=== PATIENT | male | born 1950 | race Caucasian/White ===

== ENCOUNTER 2017-08-03 20:30 | Emergency (ER) | payer MEDICARE ==
[2017-08-03] MEDS ORDERED: DOXYcycline CAP(*) 100 MG PO ONE (22:29)
[2017-08-03] MEDS ORDERED: Levofloxacin TAB* 500 MG PO ONE (22:32)
--- NOTE | 2017-08-03 22:44 | ED ---
Godwin Abarca Angela, scribed for Cornell Bentley MD on 08/03/17 at 2221 . Lower Extremity - HPI Summary HPI Summary: This pt is a 67 y/o male presenting to [facility] referred by [facility] c/o left lower leg laceration and erythema for the past 24 hours. Pt reports that a a piece of plywood hit his left brennan yesterday and sustained a cut. He denies fever. Pt went to [facility] urgent care today and had an XR that resulted negative. Pt has a history of bilateral LE cellulitis. He notes he had cellulitis on the same spot that he has laceration today and he took Doxycycline with relief. PMHx: diabetes. Pt notes his blood sugar has been controlled. He takes metformin and insulin. He notes his tetanus shot is UTD. - History of Current Complaint Chief Complaint: EDExtremityLower Stated Complaint: POSSIBLE INFECTION LT LEG Time Seen by Provider: 08/03/17 22:08 Hx Obtained From: Patient Mechanism Of Injury: Blunt Trauma Onset of Pain: Immediate, Hours - 24 Onset/Duration: Hours - 24 Severity Currently: Mild Pain Intensity: 2 Pain Scale Used: 0-10 Numeric Location: Is Discrete @ - left leg Associated Signs And Symptoms: Positive: Swelling, Redness Aggravating Factor(s): Nothing Alleviating Factor(s): Nothing Able to Bear Weight: Yes - Allergies/Home Medications Allergies/Adverse Reactions: Allergies Allergy/AdvReac Type Severity Reaction Status Date / Time MS Pollen Extract Allergy Mild Sneezing Verified 08/03/17 22:21 [Pollen Extract] MS Theophylline AdvReac Unknown violent Verified 08/03/17 22:21 [Theophylline] nausea Home Medications: Home Medications Flomax CAP* 08/03/17 [History] PMH/Surg Hx/FS Hx/Imm Hx Endocrine/Hematology History: Reports: Hx Diabetes - TYPE 2 Cardiovascular History: Reports: Hx Hypertension - ON MEDS, Other Cardiovascular Problems/Disorders - irregular heart rate Denies: Hx Congestive Heart Failure, Hx Pacemaker/ICD Respiratory History: Reports: Hx Sleep Apnea, Other Respiratory Problems/ Disorders - sleep apnea GI History: Reports: Hx Irritable Bowel, Other GI Disorders - IBS History: Reports: Other Problems/Disorders - ENLARGE PROSTATE Musculoskeletal History: Reports: Hx Arthritis - BILATERAL FINGERS, HIPS, BACK, Hx Back Problems Sensory History: Reports: Hx Contacts or Glasses - GLASSES Denies: Hx Hearing Aid Opthamlomology History: Reports: Hx Contacts or Glasses - GLASSES Neurological History: Reports: Hx Headaches Psychiatric History: Reports: Hx Depression - CHRONIC Denies: Hx Panic Disorder - Cancer History Cancer Type, Location and Year: MELANOMA ON NOSE Hx Chemotherapy: No Hx Radiation Therapy: No - Surgical History Surgery Procedure, Year, and Place: 1998 LAPAROSCOPIC CHOLECYSTECTOMY, [facility] [place]. 1998 LAPAROSCOPIC DRAINS FOR BILE PERTIONITIS, [facility] [place]. 2003 URETHROTOMY, [facility] [place]. 2013 CYSTOSCOPY WITH REMOVAL OF BLADDER STONES, OFFICE. 1979 HAND SURGERY Hx Anesthesia Reactions: No - Immunization History Date of Tetanus Vaccine: less than 4 yrs Infectious Disease History: No Infectious Disease History: Denies: Traveled Outside the [place] in Last 30 Days - Family History Known Family History: Positive: Hypertension, Diabetes - brother/mother, Other - CHF-mother, colon cancer-father Negative: Cardiac Disease - Social History Alcohol Use: None Substance Use Type: Reports: None Hx Tobacco Use: Yes Smoking Status (MU): Former Smoker - quit in 1969 Type: Cigarettes Review of Systems Negative: Fever, Chills Eyes: Negative ENT: Negative Cardiovascular: Negative Respiratory: Negative Gastrointestinal: Negative Musculoskeletal: Other - left leg pain Skin: Other - left leg laceration All Other Systems Reviewed And Are Negative: Yes Physical Exam - Summary Physical Exam Summary: VITAL SIGNS: Reviewed. GENERAL: Patient is a well-developed and nourished male who is lying comfortable in the stretcher. Patient is not in any acute respiratory distress. HEAD AND FACE: No signs of trauma. No ecchymosis, hematomas or skull depressions. No sinus tenderness. EYES: PERRLA, EOMI x 2, No injected conjunctiva, no nystagmus. EARS: Hearing grossly intact. Ear canals and tympanic membranes are within normal limits. MOUTH: Oropharynx within normal limits. NECK: Supple, trachea is midline, no adenopathy, no JVD, no carotid bruit, no c- spine tenderness, neck with full ROM. CHEST: Symmetric, no tenderness at palpation LUNGS: Clear to auscultation bilaterally. No wheezing or crackles. CVS: Regular rate and rhythm, S1 and S2 present, no murmurs or gallops appreciated. ABDOMEN: Soft, non-tender. No signs of distention. No rebound no guarding, and no masses palpated. Bowel sounds are normal. EXTREMITIES: FROM in all major joints, no cyanosis or clubbing. LLE: 1 inch laceration transverse over the left medial leg anteriorly. No bleeding. Mild surrounding erythema. NEURO: Alert and oriented x 3. No acute neurological deficits. Speech is normal and follows commands. SKIN: Dry and warm. Triage Information Reviewed: Yes Vital Signs On Initial Exam: Initial Vitals Temp Pulse Resp BP Pulse Ox 98 F 103 20 162/78 100 08/03/17 20:35 08/03/17 20:35 08/03/17 20:35 08/03/17 20:35 08/03/17 20:35 Vital Signs Reviewed: Yes Diagnostics - Vital Signs Vital Signs Temp Pulse Resp BP Pulse Ox 08/03/17 20:35 98 F 103 20 162/78 100 - Laboratory Lab Statement: Any lab studies that have been ordered have been reviewed, and results considered in the medical decision making process. Lower Extremity Course/Dx - Course Assessment/Plan: This pt is a 67 y/o male, with PMHx of diabetes, presents with left lower leg laceration and erythema for the past 24 hours. Pt reports that a a piece of plywood hit his left brennan yesterday and sustained a cut. He denies fever. Pt went to [facility] urgent care today and had an XR that resulted negative. Pt has a history of bilateral LE cellulitis. He notes he had cellulitis on the same spot that he has laceration today and took Doxycycline with relief. Pt is compliant with his medications for diabetes. On exam, pt has 1 inch laceration transverse over the left medial leg anteriorly. No bleeding. Mild surrounding erythema. Pt will be discharged to home with a prescription of Doxycycline and Levaquin, and follow up from his PCP. He is instructed to elevate his leg and use warm compresses. Pt is advised to return to the ED for any worsening or new symptoms. He is agreeable with this plan. - Diagnoses Provider Diagnoses: Laceration of left leg, Cellulitis Discharge - Discharge Plan Condition: Stable Disposition: HOME Prescriptions: DOXYcycline CAP(*) [DOXYcycline 100MG CAP(*)] 100 mg PO BID #14 cap Levofloxacin TAB* [Levaquin TAB*] 500 mg PO DAILY #7 tab Patient Education Materials: Laceration (ED), Cellulitis (ED) Referrals: Haroon Pandey NP [Primary Care Provider] - Additional Instructions: Use elevation and warm compresses. Keep your sugar under control. RETURN TO EMERGENCY DEPARTMENT FOR ANY NEW OR WORSENING SYMPTOMS. The documentation as recorded by the Godwin redmond Angela accurately reflects the service I personally performed and the decisions made by me, Cornell Bentley MD.
[2017-08-03 22:53] VITALS: BP 129/82
== END 2017-08-03 22:45 | disposition home or self-care (01) ==
LOC: ED 20:30
DX: S81.812A Laceration without foreign body, left lower leg, initial encounter (principal); L03.116 Cellulitis of left lower limb; E11.9 Type 2 diabetes mellitus without complications; Z79.84 Long term (current) use of oral hypoglycemic drugs; Z79.4 Long term (current) use of insulin; F32.9 Major depressive disorder, single episode, unspecified; I10 Essential (primary) hypertension; C43.9 Malignant melanoma of skin, unspecified; Z87.891 Personal history of nicotine dependence; W22.8XXA Striking against or struck by other objects, initial encounter; Y92.9 Unspecified place or not applicable
CPT/HCPCS: 99282; A9270-GY

== ENCOUNTER 2018-05-13 10:26 | Emergency (ER) | payer MEDICARE ==
--- OUTSIDE RECORDS SUMMARY | 2018-05-13 10:58 | XMS REPORT | Continuity of Care Document ---
:1950 External Reference #:[id number] Author Name Abad Pereira M.D. Address [address] [place] [address] Care Team Providers Name Role Phone TEX Tolbert Care Team Information Figurine Maker Unavailable Payers Type Date Identification Numbers Payment Provider Subscriber Expires: Policy Number: [id number] Ciaranus VÁSQUEZ Yessenia Morris Xiomara 2009 Group Number: [id number] PayID: [id number] KT Mcfarland [id number] Effective: 2009 Policy Number: [id number] Excellus THALIA Yessenia Gonzalestimothymike Expires: 2011 Group Name: Cody Blue [address] PayID: [id number] KT Mcfar[place] [id number] Effective: 2011 Policy Number: [id number] Frandy THALIA Yessenia Gonzalestimothymike Expires: 2014 Group Name: BC/BS of [place] [address] PayID: [id number] KT Mcfarland [id number] Effective: 2015 Policy Number: Medicare - Bswny Amna Gill Xiomara [id number] [facility] PayID: [id number] [address] [place] [address] Policy Number: [id number] [facility] Amna Jairo Xiomara PayID: [id number] [address] [place] [address] Advance Directives Description No Information Available Problems Date Description Provider Status Onset: 08/31/2010 Type 2 diabetes mellitus Abad Pereira M.D. Active Onset: 08/31/2010 Essential hypertension TEX Tolbert Active Onset: 08/31/2010 Sleep apnea Mirna Ridley M.D., R.D. Active Family History Date Family Member(s) Problem(s) Comments Onset: (age 82 Years) Father Cancer, Colon AFTER COLON CANCER TREATMENT WITH RADIATION CHEMO AND SURGERY. HISTORY OF CROHN'S COLITIS. Onset: (2006) (age 79 Mother CHF DEVELOPED CHF AGE 79 POSS DUE Years) TO RHEUMATIC VALVE DISEASE. Social History Type Date Description Comments Sex Unknown Marital Status Lives With patient lives alone Tobacco Use Start: Unknown End: Former Cigarette Smoker stopped in the Unknown Smoking Status Reviewed: 02/23/17 Former Cigarette Smoker stopped in the ETOH Use Denies alcohol use Recreational Drug Use Denies Drug Use Enjoy Exercising Enjoys exercising no routine but he is very active Allergies, Adverse Reactions, Alerts Description No Known Drug Allergies Medications Medication Date Status Form Strength Qnty SIG Indications Ordering Provider Amoxicillin 04/14 Active Capsules 500mg 30cap 1 by mouth L03.116 s three times Pereira, a day x 10 M.D. days Ammonium Lactate 04/14 Active Lotion 12% 226gm apply to L03 heels bid Pereira, for dry M.D. cracked skin Amoxicillin/Clav 01/29 Active Tablets 875-125mg 20tab 1 by mouth Shawnti R. ulanate s twice a day Storm, Potassium for 10 days CIRCULATION MANAGER-C for infection BD Insulin 11/22 Active Misc 27G X 60uni Insulin Shawnti R. Syringe /20178" 1 ML ts injection Storm, Microfine/U-100/ bid CIRCULATION MANAGER-C 1ML/27G X 5/8" Metoprolol 08/28 Active Tablets 25mg 30tab 1 by mouth R00.2 Shawnti R. Succinate ER /2017 ER 24HR s every day Storm, CIRCULATION MANAGER-C Bipap Supplies 08/28 Active mask, G47.30 Shawnti R. /2018 tubing, Storm, strap and CIRCULATION MANAGER-C head gear for Bi Pap..Dx Sleep Apnea Bupropion HCL ER 11/25 Active Tablets 300mg 30tab Take One F32.8 (XL) ER 24HR s Tablet By Pereira, Mouth Every M.D. Morning Vitamin D 10/08 Active Capsules 22775Mnzo 14cap take 1 Shawnti R. (Ergocalciferol) s capsule by Storm, mouth once CIRCULATION MANAGER-C weekly Magnesium Oxide 12/13 Active Tablets 400(241.3 60tab Take One Shawnti R. /2015 mg) mg s Tablet By Storm, Mouth Twice CIRCULATION MANAGER-C A Day Insulin 01/07 Active Misc 30G X 75uni use to E11.65 Shawnti R. Syringe/U-100/11/08" 1 ts administer Storm, L/30G X 11/08" ML insulin bid CIRCULATION MANAGER-C Levemir 01/07 Active Solution 100Unit/M 60uni inject up to E11.65 Shawnti R. /2010 L ts 100 units Dannie, two times a CIRCULATION MANAGER-C day into the fatty tissue to keep morning blood sugars under 150 Libra Contour 08/31 Active Test 1vial use daily Joelwkrissyi R. /2010 Strips and as Dannie, needed to CIRCULATION MANAGER-C check blood sugars Lancets 08/31 Active Ultra 50uni use daily Shawnti R. /2010 Fine ts and as Storm, needed to CIRCULATION MANAGER-C test blood sugars Glucophage 07/05 Active Tablets 850mg 90tab Take One Shawnti R. 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 s capsule by Storm, - mouth every CIRCULATION MANAGER-C 01/29 8 hours 10 Silver 01/09 Hx Cream 1% 400gm apply L03.115 Shawnti R. Sulfadiazine /2017 liberally to Dannie, - open wound CIRCULATION MANAGER-C 01/29 on twice daily Doxycycline 01/06 Hx Capsules 100mg 20cap 1 cap by S80.921A Renzo Hyclate s mouth twice [place] - daily for 10 III, CIRCULATION MANAGER-C 01/12 days infection Doxycycline 08/14 Hx Capsules 100mg 20cap 1 by mouth Shawnti R. Monohydrate s twice a day , - CIRCULATION MANAGER-C 10/18 Metoprolol 08/14 Hx Tablets 25mg 60tab take one R00.2 Shawnti R. Tartrate s half tablet [facility], - by mouth CIRCULATION MANAGER-C 08/28 twice a day for heart and blood pressure Doxycycline 12/21 Hx Capsules 100mg 20cap 1 by mouth S91.332A Ubaldo Hyclate s twice a day Evaristo, - 08/14 Tramadol HCL 08/15 Hx Tablets 50mg 60tab take one M75.51 Shawnti R. s tablet by [facility], - mouth four CIRCULATION MANAGER-C 08/14 times a day as needed for pain; maximum daily dose=4 Bupropion HCL ER 04/25 Hx Tablets 150mg 90tab Take One F32.8 Shawnti R. (XL) ER 24HR s Tablet By [facility], - Mouth Every CIRCULATION MANAGER-C 11/25 Doxycycline 01/24 Hx Capsules 100mg 20cap 1 by mouth L03.116 Shawnti R. Hyclate s twice a day [facility], - for 10 days CIRCULATION MANAGER-C 12/21 Bupropion HCL ER 01/24 Hx Tablets 300mg 30tab 1 by mouth F32.8 Shawnti R. (XL) ER 24HR s every , - morning CIRCULATION MANAGER-C 04/25 Zostavax 12/20 Hx Solution 22519Die/ 1unit inject Shawnti R. Rec 0.65ML s 0.65ml into [facility], - subcutaneous CIRCULATION MANAGER-C 03/02 tissue once Bupropion HCL ER 12/20 Hx Tablets 150mg 30tab take 1 F32.8 Shawnti R. (XL) ER 24HR s tablet by Storm, - mouth every CIRCULATION MANAGER-C 01/24 Doxycycline 12/13 Hx Capsules 100mg 20cap 1 po bid for A69.20 Shawnti R. Hyclate /2015 s 10 days Storm, - CIRCULATION MANAGER-C 12/23 Ergocalciferol 12/13 Hx Capsules 81225Ymjf 14cap 1 by mouth E55.9 Shawnti R. /2015 s weekly Storm, - CIRCULATION MANAGER-C 01/12 Doxycycline 04/28 Hx Tablets 100mg 14tab 1 by mouth R23.9 Shawnti R. Hyclate /2014 DR julien twice a day Storm, - for 7 days CIRCULATION MANAGER-C 12/13 Urea 04/28 Hx Cream 40% 198.4 apply twice R23.9 Shawnti R. 00gm daily to Storm, - skin on foot CIRCULATION MANAGER-C 03/02 Doxycycline 09/03 Hx Tablets 100mg 20tab 1 by mouth 682.[address] julien twice a day Storm, - for 10 days CIRCULATION MANAGER-C 12/25 Doxycycline 05/26 Hx Tablets 100mg 20tab 1 by mouth 682.9 Joelwnti R. Hyclate /2013 DR julien twice a day Storm, - for 10 days CIRCULATION MANAGER-C 06/05 Cyclobenzaprine 12/23 Hx Tablets 5mg 30tab 1-2 by mouth 724.2 Anuradha HCL s three times Stoney, - a day for CIRCULATION MANAGER-C 03/02 muscle spasm, may cause drowsiness Clindamycin HCL 10/26 Hx Capsules 300mg 40cap one by mouth Anuradha /2013 s four times a Stoney, - day x 10 CIRCULATION MANAGER-C 09/03 days for cellulitis Lymphedema Pump 09/26 Hx wear on legs 782.3 Shawnti R. /2013 qhs for Storm, - edema and CIRCULATION MANAGER-C 03/02 recurrent cellulitis Tamiflu 09/20 Hx Capsules 75mg 10cap take one 488.82 Leonie s capsule po Carlos Bueno, - bid for 5 M.D. 04/02 days. take with some food Ciprofloxacin 09/20 Hx Tablets 500mg 14tab 1 po bid 682.9 Leonie HCL s Carlos Bueno, - M.D. 09/26 Bactrim DS 06/09 Hx Tablets 800-160mg 20tab 1 tablet bid s x 10 days Stoney, - CIRCULATION MANAGER-C 06/25 Clindamycin HCL 12/20 Hx Capsules 300mg 30cap 1 po qid for 682.9 Anuradha s 10 days for Stoney, - Infection CIRCULATION MANAGER-C 06/09 BD Uf II Short 12/11 Hx 60uni use to Shawnti R. 1cc 31G ts administer Storm, - insulin two CIRCULATION MANAGER-C 11/22 times a day /2017 Bactrim DS 11/30 Hx Tablets 800-160mg 20tab 1 po bid for 682.9 Shawnti R. s infection Storm, - CIRCULATION MANAGER-C 12/10 Sertraline HCL 07/13 Hx Tablets 100mg 60tab Take Two s Tablets By Freddy Mar, - Mouth Every M.D. /2017 Cephalexin 06/25 Hx Tablets 500mg 30tab 1 po tid for 682.9 Shawnti R. /2011 s 10 days for Storm, - infection CIRCULATION MANAGER-C 07/05 BD Uf II Short 03/08 Hx 60uni Use To Shawnti R. 1cc 31G /2011 ts Administer Storm, - Insulin Two CIRCULATION MANAGER-C 03/02 Times A Day /2015 Silvadene 05/09 Hx Cream 1% 1tub use as 707.15 Leonie directed to Carlos Bueno, - be applied M.D. 08/14 to the wound on the left heel Sulfamethoxazole 04/20 Hx Tablets 800-160mg 20tab take 1 883.1 Anuradha /Trimethoprim s tablet bid Stoney, - for 10 days CIRCULATION MANAGER-C 06/21 Clindamycin HCL 10/01 Hx Capsules 300mg 30cap 1 po q8hr 682.6 Shawnti R. /2010 s for infected Storm, - cat bite CIRCULATION MANAGER-C 10/11 Doxycycline 10/[address] 100mg 20cap 1 po bid for 682.6 Shawnti R. Hyclate /2010 Part s 10 days for Storm, - infected cat CIRCULATION MANAGER-C 10/11 bite /2010 [place] 09/09 Hx Levmir 1Mont use daily Shawnti R. /2010 h with Levmir Dannie, - flex pen CIRCULATION MANAGER-C 03/02 Levemir Flexpen 08/31 Hx Solution 100Unit/M 1mont inject 50 to 250.02 Shawnti R. /2010 L h 100 units Dannie, - into fatty CIRCULATION MANAGER-C 01/07 tissue daily for diabetes Cephalexin 12/10 Hx Capsules 500mg 30cap 1 tid x 10 682.6 s Diane Pereira M.D. 01/21 Cortisporin 02/21 Hx Solution 1% Otic 1Bott 3 drops left 380.22 Shawnti R. /2008 le ear 4 times Dannie, - daily for 5 CIRCULATION MANAGER-C Keflex 11/18 Hx Capsules 500mg 40cap 1 po qid for Shawnti R. /2008 s 10 days Storm, - CIRCULATION MANAGER-C 03/03 Ceftin 12/22 Hx Tablets 500mg 20tab 1 bid With 682.6 Michelle A. s Food For 10 , - Days [facility].N.P.C[facility] 07/07 Keflex 10/11 Hx Capsules 500mg 30cap 1 PO tid For 682.6 Shawnti R. /2007 s 10 Days For Storm, - Infection CIRCULATION MANAGER-C 12/23 Januvia 08/20 Hx Tablets 100mg 90tab 1 po qd Shawnti R. /2007 s Storm, - CIRCULATION MANAGER-C 05/13 Keflex 08/08 Hx Capsules 500mg 30cap 1 tid X 10 s Diane Orozco M.D. 08/20 Januvia 06/29 Hx Tablets 50mg 30tab 1 qd Diane Kemp M.D. 08/20 Lisinopril 06/29 Hx Tablets 10mg 30tab Take One Shawnti R. s Tablet By Storm, - Mouth Every CIRCULATION MANAGER-C /2017 Levaquin 03/04 Hx Tablets 500mg 10tab one qd x 10 682.6 Michelle A. /2005 s days Diane Carrion.N.P.C. 05/22 Levaquin 01/11 Hx Tablets 500mg 7tabs one tablet 681.11 Paresh Ashraf /2005 daily for 7 Edna Cortez - days 01/18 682.6 Vicodin 01/02/2006 - Hx Tablets 5mg;500 30tabs 1-2 Tab Q 723.3 Paresh Ashraf 01/07/2006 mg 4-6 HRS Edna Cortez prn, MDD 8 Tabs Cyclobenzaprine 01/02/2006 - Hx Tablets 10mg 15tabs one tablet 723.3 Paresh Ashraf 01/07/2006 up to tid Edna Cortez prn muscle spasm Cephalexin 07/30/2004 - Hx Capsules 500mg 14caps One Tab Eloy 08/19/2004 bid X 7 Lidia ChavesDChitra Amoxicillin 02/25/2004 - Hx Capsules 500mg 28caps 2 po bid x Whit 05/28/2004 7 days Freddy Mar M.D. Cortisporin Otic 02/25/2004 - Hx Solution 5mg;44824 1Bottle 4 drops Whit 05/28/2004 U;10mg/ML affected P. Blegen, ear qid M.DChitra for 5-7 days Tylenol W/ Codeine 02/25/2004 - Hx Tablets 300mg;30 15tabs 1-2 po qhs Whit #3 08/20/2007 mg prn pain PChitra Mar M.D. Keflex 01/12/2004 - Hx Tablets 500mg 20tabs one po bid Eloy 01/11/2006 for 10 lidia Chaves.D. Bentyl 08/27/2003 - Hx Tablets 20mg 100tabs 1 up to Anuradha 04/30/2015 qid prn BERT Lua-Hillary Anusol HC 12/18/2002 - Hx 30units 1 pr bid Eloy Suppository 03/01/2016 prn Edna Chaves Nitroglycerin SL 04/16/2002 - Hx 0.4mg 25units one po prn Unknown 08/27/2003 chest pain, may repeat in 5 minutes prn Avandia 01/22/2002 - Hx Tablets 8mg 90tabs one qd Eloy 06/29/2007 Edna Chaves Keflex 12/31/2001 - Hx Tablets 500mg 20tabs One PO Michelle A. 04/16/2002 bid X 10 Sheyla, Days F.N.P.C. Cipro HC Otic 12/31/2001 - Hx Solution 10ml 3 gtts In Michelle A. 04/16/2002 Affected Sheyla, Ear bid X F.N.P.C. 7 Days Cholestyramine 07/31/2001 - Hx 1 packet Eloy 08/27/2003 qd Edna Chaves Zoloft 07/31/2001 - Hx Tablets 100mg 180tabs two po qhs Shawnti R. 07/13/2012 Storm, CIRCULATION MANAGER-C Terazosin 07/31/2001 - Hx Capsules 5mg 90caps one qd Eloy 08/27/2003 Edna Chaves Glucophage 07/31/2001 - Hx Tablets 500mg 270tabs 0NE tid Eloy 07/05/2004 Edna Chaves Glipizide 07/31/2001 - Hx 5mg 360units 2 po bid Shawnti RChitra 02/13/2012 for Storm, diabetes CIRCULATION MANAGER-C Medications Administered in Office Medication Date Status Form Strength Qnty SIG Indications Ordering Provider George Administered Injection Whit Hayes (Ceftriaxone) 013 Blegen, Per 250MG M.D. Immunizations CPT Code Status Date Vaccine Lot # [id number] Given 01/29/2018 Pneumovax 23 (PPSV23) 65+ years or high risk 2 to [id number] 64 year old 25033 Given 02/23/2017 Influenza Vaccine High Dose PF [id number] 69264 Given 12/21/2016 Tdap (Adacel) [id number] 35828 Given 02/22/2016 Influenza Virus Vaccine, Quadrivalent, 3 Yr > [id number] Quad, Preserv Free 63111 Given 01/29/2016 Zoster Vaccine 67872 Given 01/25/2016 Zoster Vaccine 70549 Given 12/21/2015 Prevnar-13 Pneumococcal Conjugate Vaccine [id number] 23780 Given 05/26/2014 Influenza Virus Vaccine, Quadrivalent, 3 Yr > [id number] Quad, Preserv Free 11815 Given 2013 Influenza Vaccine-Preservative Free 3 Yrs And [id number] Above 19913 Given 05/09/2011 Influenza Vaccine-Preservative Free 3 Yrs And [id number] Above 23908 Given 06/01/2010 Tdap (Adacel) [id number] 21244 Given 06/01/2010 Influenza Vaccine-Preservative Free 3 Yrs And [id number] Above 55033 Given 01/12/2004 DT (Adult) 57313 Given 01/30/2003 DT (Adult) 49255 Given 01/30/2003 DT (Adult) 94562 Given 04/08/1996 DT (Adult) 17175 Given 12/16/1993 Hepatitus B Vaccine (Per 0.5 ML) 71816 Given 07/20/1993 Hepatitus B Vaccine (Per 0.5 ML) 08662 Given 06/22/1993 Hepatitus B Vaccine (Per 0.5 ML) Vital Signs Date Vital Result Comment 04/14/2018 11:05am Weight 297.00 lb Weight 134.719 kg BP Systolic 122 mmHg BP Diastolic 78 mmHg Heart Rate 78 /min Body Temperature 98.1 F Respiratory Rate 16 /min O2 % BldC Oximetry 97 % 01/29/2018 8:35am Weight 293.00 lb Weight 132.905 kg BP Systolic 120 mmHg BP Diastolic 78 mmHg Heart Rate 80 /min Body Temperature 98.1 F Respiratory Rate 18 /min Height 71.5 inches 5'11.50" BMI (Body Mass Index) 40.3 kg/m2 O2 % BldC Oximetry 98 % 01/19/2018 4:31pm Weight 292.00 lb Weight 132.451 kg BP Systolic 120 mmHg BP Diastolic 80 mmHg Heart Rate 76 /min Body Temperature 99.3 F Respiratory Rate 18 /min O2 % BldC Oximetry 97 % 01/15/2018 3:47pm Weight 294.00 lb Weight 133.358 kg BP Systolic 138 mmHg BP Diastolic 82 mmHg Heart Rate 70 /min Body Temperature 97.5 F Respiratory Rate 16 /min 01/12/2018 9:32am Weight 291.00 lb Weight 131.998 kg BP Systolic 100 mmHg BP Diastolic 68 mmHg Heart Rate 72 /min Body Temperature 98.0 F Respiratory Rate 16 /min O2 % BldC Oximetry 98 % 01/09/2018 9:39am Weight 290.00 lb Weight 131.544 kg BP Systolic 120 mmHg BP Diastolic 73 mmHg Heart Rate 68 /min Body Temperature 99.7 F Respiratory Rate 20 /min Height 71 inches 5'11" BMI (Body Mass Index) 40.4 kg/m2 O2 % BldC Oximetry 97 % 01/06/2018 9:49am Weight 290.00 lb Weight 131.544 kg BP Systolic 134 mmHg BP Diastolic 70 mmHg Heart Rate 80 /min Body Temperature 97.6 F Respiratory Rate 16 /min 10/18/2017 3:43pm Weight 291.00 lb Weight 131.998 kg BP Systolic 130 mmHg BP Diastolic 78 mmHg Heart Rate 64 /min Body Temperature 99.7 F O2 % BldC Oximetry 98 % 08/28/2017 3:34pm Weight 288.00 lb Weight 130.637 kg BP Systolic 130 mmHg BP Diastolic 80 mmHg Heart Rate 80 /min Body Temperature 97.0 F Respiratory Rate 16 /min 08/14/2017 3:45pm Weight 285.00 lb Weight 129.276 kg BP Systolic 138 mmHg BP Diastolic 84 mmHg Heart Rate 93 /min Body Temperature 98.8 F Respiratory Rate 18 /min O2 % BldC Oximetry 98 % 05/23/2017 4:03pm Weight 286.00 lb Weight 129.730 kg BP Systolic 120 mmHg BP Diastolic 70 mmHg Heart Rate 68 /min Body Temperature 98.7 F Respiratory Rate 16 /min 02/23/2017 10:21am Weight 292.00 lb Weight 132.451 kg BP Systolic 120 mmHg BP Diastolic 80 mmHg Heart Rate 72 /min Body Temperature 97.0 F Respiratory Rate 20 /min 01/10/2017 3:08pm Weight 291.00 lb Weight 131.998 kg BP Systolic 120 mmHg BP Diastolic 68 mmHg Heart Rate 92 /min Body Temperature 98.4 F Respiratory Rate 16 /min 12/21/2016 4:14pm Weight 294.00 lb Weight 133.358 kg BP Systolic 118 mmHg BP Diastolic 78 mmHg Heart Rate 94 /min Body Temperature 99.3 F Respiratory Rate 24 /min Height 71.5 inches 5'11.50" BMI (Body Mass Index) 40.4 kg/m2 O2 % BldC Oximetry 98 % 08/15/2016 11:32am Weight 290.00 lb Weight 131.544 kg BP Systolic 130 mmHg BP Diastolic 68 mmHg Body Temperature 80.0 F 01/25/2016 9:38am Weight 296.00 lb Weight 134.266 kg BP Systolic 120 mmHg BP Diastolic 70 mmHg Heart Rate 92 /min Body Temperature 98.2 F Respiratory Rate 20 /min 12/21/2015 8:47am Weight 291.00 lb Weight 131.998 kg BP Systolic 130 mmHg BP Diastolic 74 mmHg Heart Rate 80 /min Height 71.5 inches 5'11.50" BMI (Body Mass Index) 40.0 kg/m2 12/14/2015 10:55am Weight 296.00 lb Weight 134.266 kg BP Systolic 128 mmHg BP Diastolic 76 mmHg Heart Rate 80 /min Body Temperature 97.4 F 11/30/2015 9:45am Weight 298.00 lb Weight 135.173 kg BP Systolic 122 mmHg BP Diastolic 62 mmHg Heart Rate 76 /min 04/30/2015 9:47am Weight 298.00 lb Weight 135.173 kg BP Systolic 122 mmHg BP Diastolic 74 mmHg Heart Rate 76 /min Body Temperature 98.6 F 04/28/2015 4:34pm Weight 296.00 lb Weight 134.266 kg BP Systolic 128 mmHg BP Diastolic 80 mmHg Heart Rate 68 /min Body Temperature 99.5 F 09/03/2014 11:15am Weight 300.00 lb Weight 136.080 kg BP Systolic 140 mmHg BP Diastolic 70 mmHg Heart Rate 76 /min Body Temperature 98.5 F 06/16/2014 9:02am Weight 299.00 lb Weight 135.626 kg BP Systolic 140 mmHg BP Diastolic 60 mmHg Heart Rate 68 /min Body Temperature 97.7 F 05/26/2014 4:44pm Weight 292.00 lb Weight 132.451 kg BP Systolic 130 mmHg BP Diastolic 76 mmHg Heart Rate 100 /min Body Temperature 99.0 F 12/23/2013 12:03pm Weight 292.00 lb Weight 132.451 kg BP Systolic 114 mmHg BP Diastolic 68 mmHg Heart Rate 100 /min Body Temperature 98.2 F 10/28/2013 10:51am Weight 290.00 lb Weight 131.544 kg BP Systolic 130 mmHg BP Diastolic 80 mmHg Heart Rate 72 /min Body Temperature 98.4 F 10/26/2013 10:22am Weight 290.00 lb Weight 131.544 kg BP Systolic 112 mmHg BP Diastolic 74 mmHg Heart Rate 72 /min Body Temperature 99.3 F 09/26/2013 4:30pm Weight 290.00 lb Weight 131.544 kg BP Systolic 118 mmHg BP Diastolic 80 mmHg Heart Rate 68 /min 09/20/2013 4:38pm Weight 289.00 lb Weight 131.090 kg BP Systolic 126 mmHg BP Diastolic 68 mmHg Heart Rate 88 /min Body Temperature 101.2 F O2 % BldC Oximetry 98 % 2013 8:59am Weight 288.00 lb Weight 130.637 kg BP Systolic 124 mmHg BP Diastolic 76 mmHg Heart Rate 88 /min Body Temperature 95.7 F Height 72 inches 6'0" BMI (Body Mass Index) 39.1 kg/m2 06/14/2013 5:06pm Weight 287.00 lb Weight 130.183 kg BP Systolic 122 mmHg BP Diastolic 70 mmHg Heart Rate 76 /min Body Temperature 98.4 F 06/13/2013 11:00am Weight 287.00 lb Weight 130.183 kg BP Systolic 110 mmHg BP Diastolic 70 mmHg Heart Rate 100 /min Body Temperature 98.5 F 06/10/2013 11:03am Weight 288.00 lb Weight 130.637 kg BP Systolic 106 mmHg BP Diastolic 70 mmHg Heart Rate 88 /min Body Temperature 97.9 F 05/08/2013 4:46pm Weight 280.00 lb Weight 127.008 kg BP Systolic 118 mmHg BP Diastolic 66 mmHg Heart Rate 84 /min Body Temperature 98.3 F 03/06/2013 10:03am Weight 285.00 lb Weight 129.276 kg BP Systolic 126 mmHg BP Diastolic 76 mmHg Heart Rate 85 /min Body Temperature 98.9 F O2 % BldC Oximetry 98 % 12/20/2012 11:50am Weight 292.00 lb Weight 132.451 kg BP Systolic 126 mmHg BP Diastolic 70 mmHg Heart Rate 84 /min Body Temperature 97.9 F O2 % BldC Oximetry 98 % 12/11/2012 2:22pm Weight 292.00 lb Weight 132.451 kg BP Systolic 118 mmHg BP Diastolic 82 mmHg Heart Rate 84 /min Body Temperature 98.1 F O2 % BldC Oximetry 98 % 11/30/2012 11:07am Weight 297.00 lb Weight 134.719 kg BP Systolic 136 mmHg BP Diastolic 82 mmHg Heart Rate 96 /min 2012 11:06am Weight 300.00 lb Weight 136.080 kg BP Systolic 112 mmHg BP Diastolic 72 mmHg Heart Rate 74 /min 02/13/2012 8:53am Weight 299.00 lb Weight 135.626 kg BP Systolic 120 mmHg BP Diastolic 82 mmHg Heart Rate 76 /min Height 72.5 inches 6'0.50" BMI (Body Mass Index) 40.0 kg/m2 08/15/2011 10:33am Weight 300.00 lb Weight 136.080 kg BP Systolic 120 mmHg BP Diastolic 80 mmHg Heart Rate 88 /min 05/13/2011 10:58am Weight 303.00 lb Weight 137.441 kg BP Systolic 118 mmHg BP Diastolic 78 mmHg Heart Rate 76 /min 05/09/2011 10:26am Weight 303.00 lb Weight 137.441 kg BP Systolic 120 mmHg BP Diastolic 70 mmHg Heart Rate 78 /min Body Temperature 98.3 F 04/20/2011 11:34am Weight 303.00 lb Weight 137.441 kg BP Systolic 118 mmHg BP Diastolic 78 mmHg Heart Rate 76 /min Body Temperature 98.7 F 01/07/2011 9:08am Weight 299.00 lb Weight 135.626 kg BP Systolic 110 mmHg BP Diastolic 74 mmHg Heart Rate 72 /min 10/23/2010 10:31am Weight 293.00 lb Weight 132.905 kg BP Systolic 124 mmHg BP Diastolic 68 mmHg Heart Rate 72 /min Body Temperature 98.5 F 10/19/2010 8:48am Weight 290.00 lb Weight 131.544 kg BP Systolic 132 mmHg BP Diastolic 72 mmHg Heart Rate 78 /min 10/01/2010 3:16pm Weight 296.00 lb Weight 134.266 kg BP Systolic 120 mmHg BP Diastolic 70 mmHg Heart Rate 88 /min Body Temperature 99.4 F 09/14/2010 9:02am Weight 293.00 lb Weight 132.905 kg BP Systolic 142 mmHg BP Diastolic 74 mmHg Heart Rate 76 /min 08/31/2010 8:43am Weight 298.00 lb Weight 135.173 kg BP Systolic 98 mmHg BP Diastolic 68 mmHg Heart Rate 92 /min 06/01/2010 8:08am Weight 300.00 lb Weight 136.080 kg BP Systolic 122 mmHg BP Diastolic 80 mmHg Heart Rate 72 /min 12/10/2009 4:21pm Weight 302.00 lb Weight 136.987 kg BP Systolic 130 mmHg BP Diastolic 80 mmHg Heart Rate 88 /min Body Temperature 98.9 F 07/20/2009 3:07pm Weight 303.00 lb Weight 137.441 kg BP Systolic 134 mmHg BP Diastolic 84 mmHg Heart Rate 89 /min Body Temperature 98.7 F O2 % BldC Oximetry 98 % 02/21/2009 10:27am Weight 297.00 lb Weight 134.719 kg BP Systolic 128 mmHg BP Diastolic 74 mmHg Heart Rate 80 /min Body Temperature 99.8 F 10/24/2008 9:39am Weight 305.00 lb Weight 138.348 kg BP Systolic 132 mmHg BP Diastolic 78 mmHg Heart Rate 72 /min Height 72 inches 6'0" BMI (Body Mass Index) 41.4 kg/m2 07/07/2008 2:57pm Weight 301.00 lb Weight 136.534 kg BP Systolic 140 mmHg BP Diastolic 80 mmHg Heart Rate 92 /min 12/27/2007 3:50pm Weight 303.00 lb Weight 137.441 kg BP Systolic 128 mmHg BP Diastolic 68 mmHg Heart Rate 72 /min Height 72.75 inches 6'0.75" 75 BMI (Body Mass Index) 40.2 kg/m2 12/24/2007 3:51pm Weight 305.00 lb Weight 138.348 kg Body Temperature 98.3 F Height 72.75 inches 6'0.75" 75 BMI (Body Mass Index) 40.5 kg/m2 10/12/2007 1:32pm Weight 303.00 lb Weight 137.441 kg BP Systolic 118 mmHg BP Diastolic 68 mmHg Heart Rate 72 /min Body Temperature 98.0 F Oral Height 72.75 inches 6'0.75" 75 BMI (Body Mass Index) 40.2 kg/m2 08/20/2007 12:56pm Weight 304.00 lb Weight 137.894 kg BP Systolic 130 mmHg BP Diastolic 74 mmHg Heart Rate 72 /min Height 72.75 inches 6'0.75" 75 BMI (Body Mass Index) 40.4 kg/m2 08/08/2007 11:18am Weight 308.00 lb Weight 139.709 kg BP Systolic 130 mmHg BP Diastolic 84 mmHg Heart Rate 76 /min Body Temperature 96.9 F Height 72.25 inches 6'0.25" BMI (Body Mass Index) 41.5 kg/m2 06/29/2007 11:42am Weight 310.00 lb Weight 140.616 kg BP Systolic 134 mmHg BP Diastolic 82 mmHg Heart Rate 78 /min Height 72.25 inches 6'0.25" BMI (Body Mass Index) 41.7 kg/m2 03/09/2007 11:19am Weight 321.00 lb Weight 145.606 kg BP Systolic 148 mmHg BP Diastolic 82 mmHg Heart Rate 72 /min Height 72.25 inches 6'0.25" BMI (Body Mass Index) 43.2 kg/m2 09/13/2006 1:52pm Weight 325.00 lb Weight 147.420 kg BP Systolic 160 mmHg BP Diastolic 86 mmHg Heart Rate 74 /min Height 72.25 inches 6'0.25" BMI (Body Mass Index) 43.8 kg/m2 03/04/2006 9:14am Weight 323.00 lb Weight 146.513 kg BP Systolic 140 mmHg BP Diastolic 80 mmHg Heart Rate 80 /min Body Temperature 96.0 F Height 73.5 inches 6'1.50" BMI (Body Mass Index) 42.0 kg/m2 01/11/2006 2:54pm Weight 324.00 lb Weight 146.966 kg BP Systolic 150 mmHg BP Diastolic 90 mmHg Heart Rate 80 /min Body Temperature 97.0 F Height 73.5 inches 6'1.50" BMI (Body Mass Index) 42.2 kg/m2 01/02/2006 4:57pm Weight 327.00 lb Weight 148.327 kg BP Systolic 130 mmHg BP Diastolic 80 mmHg Height 73.5 inches 6'1.50" BMI (Body Mass Index) 42.6 kg/m2 12/12/2005 3:39pm Weight 324.00 lb Weight 146.966 kg BP Systolic 124 mmHg BP Diastolic 82 mmHg Height 73.5 inches 6'1.50" BMI (Body Mass Index) 42.2 kg/m2 06/13/2005 4:20pm Weight 329.00 lb Weight 149.234 kg BP Systolic 150 mmHg BP Diastolic 90 mmHg Heart Rate 78 /min Height 73.5 inches 6'1.50" BMI (Body Mass Index) 42.8 kg/m2 07/30/2004 11:07am Weight 332.00 lb Weight 150.595 kg BP Systolic 130 mmHg BP Diastolic 80 mmHg Body Temperature 97.0 F Height 73.5 inches 6'1.50" BMI (Body Mass Index) 43.2 kg/m2 07/05/2004 4:15pm Weight 329.00 lb Weight 149.234 kg BP Systolic 130 mmHg BP Diastolic 80 mmHg Height 73.5 inches 6'1.50" BMI (Body Mass Index) 42.8 kg/m2 05/31/2004 1:01pm Weight 328.00 lb Weight 148.781 kg BP Systolic 110 mmHg BP Diastolic 70 mmHg Body Temperature 98.2 F 02/25/2004 11:14am Weight 331.00 lb Weight 150.142 kg BP Systolic 134 mmHg BP Diastolic 88 mmHg Body Temperature 97.6 F 01/12/2004 12:32pm Weight 332.00 lb Weight 150.595 kg BP Systolic 143 mmHg BP Diastolic 98 mmHg Heart Rate 88 /min Body Temperature 97.7 F 08/27/2003 12:40pm Weight 329.00 lb Weight 149.234 kg BP Systolic 126 mmHg BP Diastolic 80 mmHg Heart Rate 68 /min Respiratory Rate 18 /min Height 71.50 inches BMI (Body Mass Index) 45.2 kg/m2 05/14/2003 2:33pm Weight 326.00 lb Weight 147.874 kg BP Systolic 122 mmHg BP Diastolic 80 mmHg 04/16/2002 11:51am Weight 330.00 lb Weight 149.700 kg BP Systolic 130 mmHg BP Diastolic 80 mmHg Heart Rate 78 /min Body Temperature 97.0 F Respiratory Rate 18 /min 12/31/2001 9:35am Weight 326.50 lb BP Systolic 116 mmHg BP Diastolic 78 mmHg Body Temperature 96.8 F 10/12/2001 4:43pm Weight 325.50 lb BP Systolic 148 mmHg BP Diastolic 90 mmHg Results Test Date Facility Test Result H/L Range Note Laboratory test 04/02/2018 [facility] PSA Screening 5.478 ng/mL High 0-4.0 1 finding [phone] CBC Auto Diff 01/19/2018 [facility] White Blood 7.0 10^3/uL 3.5-10.8 [phone] Count Red Blood Count 4.73 10^6/uL 4.00-5.40 Hemoglobin 13.9 g/dL Low 14.0-18.0 Hematocrit 41 % Low 42-52 Mean Corpuscular Volume 88 fL 80-94 Mean Corpuscular Hemoglobin 29 pg 27-31 Mean Corpuscular HGB Conc 34 g/dL 31-36 Red Cell Distribution Width 14 % 10.5-15 Platelet Count 102 10^3/uL Low 150-450 Mean Platelet Volume 9.7 um3 7.4-10.4 Abs Neutrophils 4.8 10^3/uL 1.5-7.7 Abs Lymphocytes 1.6 10^3/uL 1.0-4.8 Abs Monocytes 0.5 10^3/uL 0-0.8 Abs Eosinophils 0.1 10^3/uL 0-0.6 Abs Basophils 0 10^3/uL 0-0.2 Abs Nucleated RBC 0 10^3/uL Granulocyte % 68.7 % 38-83 Lymphocyte % 22.2 % Low 25-47 Monocyte % 7.5 % High 0-7 Eosinophil % 1.3 % 0-6 Basophil % 0.3 % 0-2 Nucleated Red Blood Cells % 0.1 Laboratory test 01/19/2018 [facility] C Reactive 3.34 mg/L <8.01 2 finding [phone] Protein Erythrocyte Sed Rate 19 mm/Hr 0-40 3 CBC Auto Diff 01/09/2018 [facility] White Blood 6.5 10^3/uL 3.5-10.8 [phone] Count Red Blood Count 5.15 10^6/uL 4.00-5.40 Hemoglobin 15.0 g/dL 14.0-18.0 Hematocrit 45 % 42-52 Mean Corpuscular Volume 88 fL 80-94 Mean Corpuscular Hemoglobin 29 pg 27-31 Mean Corpuscular HGB Conc 33 g/dL 31-36 Red Cell Distribution Width 14 % 10.5-15 Platelet Count 108 10^3/uL Low 150-450 Mean Platelet Volume 9.8 um3 7.4-10.4 Abs Neutrophils 4.3 10^3/uL 1.5-7.7 Abs Lymphocytes 1.7 10^3/uL 1.0-4.8 Abs Monocytes 0.4 10^3/uL 0-0.8 Abs Eosinophils 0.1 10^3/uL 0-0.6 Abs Basophils 0 10^3/uL 0-0.2 Abs Nucleated RBC 0 10^3/uL Granulocyte % 66.0 % 38-83 Lymphocyte % 25.6 % 25-47 Monocyte % 6.9 % 0-7 Eosinophil % 1.1 % 0-6 Basophil % 0.4 % 0-2 Nucleated Red Blood Cells % 0.1 Wound 01/09/2018 [facility] Wound/Misc SEE RESULT 4 Culture/Sensi [phone] Culture-Gram BELOW Stain Comp Metabolic 01/09/2018 [facility] Sodium 141 mmol/ L 135-1 Panel [phone] Potassium 4.9 mmol/L 3.5-5.0 Chloride 106 mmol/L 101-111 Co2 Carbon Dioxide 26 mmol/L 22-32 Anion Gap 9 mmol/L 2-11 Glucose 85 mg/dL 70-100 Blood Urea Nitrogen 20 mg/dL 6-24 Creatinine 0.95 mg/dL 0.67-1.17 BUN/Creatinine Ratio 21.1 High 8-20 Calcium 9.1 mg/dL 8.6-10.3 Total Protein 7.3 g/dL 6.4-8.9 Albumin 4.3 g/dL 3.2-5.2 Globulin 3.0 g/dL 2-4 Albumin/Globulin Ratio 1.4 1-3 Total Bilirubin 1.40 mg/dL High 0.2-1.0 Alkaline Phosphatase 41 U/L 34-104 Alt 37 U/L 7-52 Ast 24 U/L 13-39 Egfr Non- 79.1 >60 Egfr 95.7 >60 5 Laboratory test 01/09/2018 [facility] TSH (Thyroid 2.81 mcIU/mL 0.34-5.60 6 finding [phone] Stim Horm) Hemoglobin A1c (Glyco HGB) 5.6 % 4.0-5.6 7 PSA Diagnostic 17.130 ng/mL High 0-4.000 8 Lipid Profile 01/09/2018 [facility] Triglycerides 88 mg/dL 9 (Trig/Chol/HDL) [phone] Cholesterol 69 mg/dL 10 HDL Cholesterol 30.6 mg/dL 11 LDL Cholesterol 21 mg/dL 12 Laboratory test 12/19/2017 [facility] Surgical SEE RESULT 13, 14 finding [phone] Pathology BELOW Laboratory test 09/25/2017 [facility] PSA Screening 8.122 High 0-4. 15 finding [phone] ng/mL 0 Laboratory test 07/19/2017 [facility] PSA Screening 8.975 High 0-4. 16 finding [phone] ng/mL 0 Urine 02/23/2017 [facility] Urine 63.17 17 Microalbumin [phone] Creatinine mg/dL Random Ur Microalbumin (mg/L) < 15.0 mg/L Urine Microalbumin/Creatinine TNP ug/mg <31 18 CBC Auto Diff 02/23/2017 [facility] White Blood 5.2 10^3/uL 3.5-10.8 [phone] Count Red Blood Count 4.89 10^6/uL 4.0-5.4 Hemoglobin 14.1 g/dL 14.0-18.0 Hematocrit 43 % 42-52 Mean Corpuscular Volume 87 fL 80-94 Mean Corpuscular Hemoglobin 29 pg 27-31 Mean Corpuscular HGB Conc 33 g/dL 31-36 Red Cell Distribution Width 14 % 10.5-15 Platelet Count 98 10^3/uL Low 150-450 19 Mean Platelet Volume 10 um3 7.4-10.4 Abs Neutrophils 2.9 10^3/uL 1.5-7.7 Abs Lymphocytes 1.7 10^3/uL 1.0-4.8 Abs Monocytes 0.4 10^3/uL 0-0.8 Abs Eosinophils 0.1 10^3/uL 0-0.6 Abs Basophils 0 10^3/uL 0-0.2 Abs Nucleated RBC 0 10^3/uL Granulocyte % 57.0 % 38-83 Lymphocyte % 32.2 % 25-47 Monocyte % 8.5 % 1-9 Eosinophil % 1.8 % 0-6 Basophil % 0.5 % 0-2 Nucleated Red Blood Cells % 0.1 Comp Metabolic Panel 02/23/2017 [facility] Sodium 139 mmol/L 133-145 [phone] Potassium 4.6 mmol/L 3.5-5.0 Chloride 105 mmol/L 101-111 Co2 Carbon Dioxide 30 mmol/L 22-32 Anion Gap 4 mmol/L 2-11 Glucose 92 mg/dL 70-100 Blood Urea Nitrogen 14 mg/dL 6-24 Creatinine 0.71 mg/dL 0.67-1.17 BUN/Creatinine Ratio 19.7 8-20 Calcium 9.2 mg/dL 8.6-10.3 Total Protein 7.1 g/dL 6.4-8.9 Albumin 4.1 g/dL 3.2-5.2 Globulin 3.0 g/dL 2-4 Albumin/Globulin Ratio 1.4 1-3 Total Bilirubin 0.80 mg/dL 0.2-1.0 Alkaline Phosphatase 38 U/L 34-104 Alt 43 U/L 7-52 Ast 29 U/L 13-39 Egfr Non- 111.0 >60 Egfr 142.8 >60 20 Lipid Profile 02/23/2017 [facility] Triglycerides 90 mg/dL 21 (Trig/Chol/HDL) [phone] Cholesterol 64 mg/dL 22 HDL Cholesterol 29.1 mg/dL 23 LDL Cholesterol 17 mg/dL 24 Laboratory test 02/23/2017 [facility] TSH (Thyroid 1.65 mcIU/mL 0.34-5.60 finding [phone] Stim Horm) Hemoglobin A1c (Glyco HGB) 6.0 % High Less than 6.0 25 Magnesium 1.9 mg/dL 1.9-2.7 Ferritin 46.6 ng/mL 24-336 Laboratory test 02/23/2017 [facility] Vitamin D 48.7 ng/mL 30-50 finding [phone] Total 25(Oh) Vitamin B12 199 pg/mL 180-914 26 Iron & Iron Binding 02/23/2017 [facility] Iron 58 g /dL 50-212 Capacity [phone] Unsaturated Iron Binding 324 g/dL Total Iron Binding Capacity 382 g/dL 250-450 % Iron Saturation 15 % 15-55 Laboratory test 11/24/2016 [facility] PSA Screening 5.224 High 0-4.0 27 finding [phone] ng/mL CBC Auto Diff 08/15/2016 [facility] White Blood 6.4 3.5-10.8 [phone] Count 10^3/uL Red Blood Count 5.05 10^6/uL 4.0-5.4 Hemoglobin 14.5 g/dL 14.0-18.0 Hematocrit 44 % 42-52 Mean Corpuscular Volume 88 fL 80-94 Mean Corpuscular Hemoglobin 29 pg 27-31 Mean Corpuscular HGB Conc 33 g/dL 31-36 Red Cell Distribution Width 15 % 10.5-15 Platelet Count 85 10^3/uL Low 150-450 Mean Platelet Volume 10 um3 7.4-10.4 Abs Neutrophils 4.3 10^3/uL 1.5-7.7 Abs Lymphocytes 1.5 10^3/uL 1.0-4.8 Abs Monocytes 0.5 10^3/uL 0-0.8 Abs Eosinophils 0.1 10^3/uL 0-0.6 Abs Basophils 0 10^3/uL 0-0.2 Abs Nucleated RBC 0 10^3/uL Granulocyte % 67.0 % 38-83 Lymphocyte % 23.1 % Low 25-47 Monocyte % 8.4 % 1-9 Eosinophil % 1.2 % 0-6 Basophil % 0.3 % 0-2 Nucleated Red Blood Cells % 0 Anaplasma 08/15/2016 [facility] A. phagocytophilum <1 :64 Phagocytophilum Abs [phone] IgG Igg,Igm A. phagocytophilum IgM <1:20 A. phagocytophilum Interp See Comment 28 Comp Metabolic Panel 08/15/2016 [facility] Sodium 140 mmol/L 133-145 [phone] Potassium 4.4 mmol/L 3.5-5.0 Chloride 106 mmol/L 101-111 Co2 Carbon Dioxide 29 mmol/L 22-32 Anion Gap 5 mmol/L 2-11 Glucose 85 mg/dL 70-100 Blood Urea Nitrogen 13 mg/dL 6-24 Creatinine 0.79 mg/dL 0.67-1.17 BUN/Creatinine Ratio 16.5 8-20 Calcium 9.1 mg/dL 8.6-10.3 Total Protein 7.0 g/dL 6.4-8.9 Albumin 4.0 g/dL 3.2-5.2 Globulin 3.0 g/dL 2-4 Albumin/Globulin Ratio 1.3 1-3 Total Bilirubin 0.90 mg/dL 0.2-1.0 Alkaline Phosphatase 41 U/L 34-104 Alt 34 U/L 7-52 Ast 25 U/L 13-39 Egfr Non- 98.1 >60 Egfr 126.2 >60 29 Laboratory test 08/15/2016 [facility] TSH (Thyroid 2.86 mcIU/mL 0.34-5.60 30 finding [phone] Stim Horm) Hemoglobin A1c (Glyco HGB) 5.8 % Less than 6.0 31 PSA Screening 6.646 ng/mL High 0-4.000 32 Lyme Western 08/15/2016 [facility] Lyme Disease Negative Negative Blot [phone] IgG Ab WB Lyme Disease IgG Bands Present p41, kDa Lyme Disease IgM Ab WB Positive Negative Lyme Disease IgM Bands Present p41, p23, kDa Lyme Disease Interpretation See Comment 33 Laboratory test 08/15/2016 [facility] Vitamin D 29.8 ng/mL Low 30-50 34 finding [phone] Total 25(Oh) Magnesium 2.0 mg/dL 1.9-2.7 35 Lipid Profile 08/15/2016 [facility] Triglycerides 102 mg/dL 36 (Trig/Chol/HDL) [phone] Cholesterol 87 mg/dL 37 HDL Cholesterol 32.2 mg/dL 38 LDL Cholesterol 34 mg/dL 39 Babesia Microti Abs 02/22/2016 [facility] Babesia microti <1:64 (Igg,Igm) [phone] IgG Babesia microti IgM <1:20 Babesia microti Interpretation See Comment 40 CBC Auto Diff 02/22/2016 [facility] White Blood 5.5 10^3/uL 3.5-10.8 [phone] Count Red Blood Count 4.98 10^6/uL 4.0-5.4 Hemoglobin 13.9 g/dL Low 14.0-18.0 Hematocrit 43 % 42-52 Mean Corpuscular Volume 87 fL 80-94 Mean Corpuscular Hemoglobin 28 pg 27-31 Mean Corpuscular HGB Conc 32 g/dL 31-36 Red Cell Distribution Width 15 % 10.5-15 Platelet Count 98 10^3/uL Low 150-450 Mean Platelet Volume 10 um3 7.4-10.4 Abs Neutrophils 3.6 10^3/uL 1.5-7.7 Abs Lymphocytes 1.4 10^3/uL 1.0-4.8 Abs Monocytes 0.4 10^3/uL 0-0.8 Abs Eosinophils 0.1 10^3/uL 0-0.6 Abs Basophils 0 10^3/uL 0-0.2 Abs Nucleated RBC 0.01 10^3/uL Granulocyte % 65.3 % 38-83 Lymphocyte % 26.2 % 25-47 Monocyte % 6.6 % 1-9 Eosinophil % 1.5 % 0-6 Basophil % 0.4 % 0-2 Nucleated Red Blood Cells % 0.1 Comp Metabolic Panel 02/22/2016 [facility] Sodium 140 mmol/L 133-145 [phone] Potassium 4.4 mmol/L 3.5-5.0 Chloride 106 mmol/L 101-111 Co2 Carbon Dioxide 27 mmol/L 22-32 Anion Gap 7 mmol/L 2-11 Glucose 78 mg/dL 70-100 Blood Urea Nitrogen 12 mg/dL 6-24 Creatinine 0.78 mg/dL 0.67-1.17 BUN/Creatinine Ratio 15.4 8-20 Calcium 9.0 mg/dL 8.6-10.3 Total Protein 7.2 g/dL 6.4-8.9 Albumin 4.0 g/dL 3.2-5.2 Globulin 3.2 g/dL 2-4 Albumin/Globulin Ratio 1.3 1-3 Total Bilirubin 1.30 mg/dL High 0.2-1.0 Alkaline Phosphatase 41 U/L 34-104 Alt 55 U/L High 7-52 Ast 41 U/L High 13-39 Egfr Non- 99.9 >60 Egfr 128.5 >60 41 Laboratory test 02/22/2016 [facility] Magnesium 2.0 mg/dL 1.9-2.7 42 finding [phone] Lyme Western 02/22/2016 [facility] Lyme Disease Negative Negative Blot [phone] IgG Ab WB Lyme Disease IgG Bands Present p66, p41, kDa Lyme Disease IgM Ab WB Positive Negative Lyme Disease IgM Bands Present p41, p23, kDa Lyme Disease Interpretation See Comment 43 Laboratory 02/22/2016 [facility] Hepatitis C Nonreactive Nonreactive 44 test finding [phone] Antibody Vitamin B12 263 pg/mL 180-914 45 Vitamin D Total 25(Oh) 51.8 ng/mL High 30-50 46 CBC Auto Diff 11/30/2015 [facility] White Blood 4.2 10^3/uL 3.5-10.8 47 [phone] Count Red Blood Count 4.66 10^6/uL 4.0-5.4 Hemoglobin 13.0 g/dL Low 14.0-18.0 Hematocrit 41 % Low 42-52 Mean Corpuscular Volume 89 fL 80-94 Mean Corpuscular Hemoglobin 28 pg 27-31 Mean Corpuscular HGB Conc 31 g/dL 31-36 Red Cell Distribution Width 15 % 10.5-15 Platelet Count 93 10^3/uL Low 150-450 Mean Platelet Volume 10 um3 7.4-10.4 Abs Neutrophils 2.7 10^3/uL 1.5-7.7 Abs Lymphocytes 1.1 10^3/uL 1.0-4.8 Abs Monocytes 0.3 10^3/uL 0-0.8 Abs Eosinophils 0.1 10^3/uL 0-0.6 Abs Basophils 0 10^3/uL 0-0.2 Abs Nucleated RBC 0 10^3/uL Granulocyte % 63.0 % 38-83 Lymphocyte % 27.0 % 25-47 Monocyte % 8.0 % 1-9 Eosinophil % 1.4 % 0-6 Basophil % 0.6 % 0-2 Nucleated Red Blood Cells % 0 Comp Metabolic Panel 11/30/2015 [facility] Sodium 139 mmol/L 133-145 [phone] Potassium 4.5 mmol/L 3.5-5.0 Chloride 107 mmol/L 101-111 Co2 Carbon Dioxide 25 mmol/L 22-32 Anion Gap 7 mmol/L 2-11 Glucose 164 mg/dL High 70-100 Blood Urea Nitrogen 11 mg/dL 6-24 Creatinine 0.74 mg/dL 0.67-1.17 BUN/Creatinine Ratio 14.9 8-20 Calcium 8.6 mg/dL 8.6-10.3 Total Protein 6.7 g/dL 6.4-8.9 Albumin 4.0 g/dL 3.2-5.2 Globulin 2.7 g/dL 2-4 Albumin/Globulin Ratio 1.5 1-3 Total Bilirubin 0.70 mg/dL 0.2-1.0 Alkaline Phosphatase 43 U/L 34-104 Alt 44 U/L 7-52 Ast 34 U/L 13-39 Egfr Non- 106.2 >60 Egfr 136.5 >60 48 Lipid Profile 11/30/2015 [facility] Triglycerides 98 mg/dL 49 (Trig/Chol/HDL) [phone] Cholesterol 74 mg/dL 50 HDL Cholesterol 28.7 mg/dL 51 LDL Cholesterol 26 mg/dL 52 Laboratory test 11/30/2015 [facility] TSH (Thyroid 1.99 0.34-5.60 53 finding [phone] Stimulating ?IU/mL Horm) Hemoglobin A1c 6.3 % High Less than 6.0 54 Lyme Western 11/30/2015 [facility] Lyme Disease Negative Negative Blot [phone] IgG Ab WB Lyme Disease IgG Bands Present p66, p41, kDa Lyme Disease IgM Ab WB Positive Negative Lyme Disease IgM Bands Present p41, p23, kDa Lyme Disease Interpretation See Comment 55 Laboratory test 11/30/2015 [facility] Erythrocyte Sed 18 mm/Hr 0-40 56 finding [phone] Rate Rheumatoid Factor <15 IU/mL <15 57 Cyclic Citrullinated Pept IgG <15.6 U 58 Uric Acid 4.4 mg/dL 4.4-7.6 59 Vitamin D Total 25(Oh) 25.4 ng/mL Low 30-50 60 Magnesium 1.7 mg/dL Low 1.9-2.7 61 Pathologist Review (SEE NOTE) 62 Laboratory test 11/11/2014 [facility] PSA Diagnostic 4.966 High 0-4.0 63 finding [phone] ng/mL Laboratory test 05/02/2014 [facility] PSA Diagnostic 4.349 High 0-4.0 64 finding [phone] ng/mL Laboratory test 01/02/2014 [facility] PSA Diagnostic 4.491 High 0-4.0 65 finding [phone] ng/mL Comp Metabolic 09/20/2013 [facility] Sodium 135 133-145 Panel [phone] mmol/L Potassium 4.0 mmol/L 3.7-5.6 Chloride 100 mmol/L Low 101-111 Co2 Carbon Dioxide 27 mmol/L 22-32 Anion Gap 8 mmol/L 2-11 Glucose 147 mg/dL High 70-100 Blood Urea Nitrogen 16 mg/dL 6-24 Creatinine 0.79 mg/dL 0.67-1.17 BUN/Creatinine Ratio 20.3 High 8-20 Calcium 8.9 mg/dL 8.6-10.3 Total Protein 7.5 g/dL 6.4-8.9 Albumin 4.1 g/dL 3.2-5.2 Globulin 3.4 g/dL 2-4 Albumin/Globulin Ratio 1.2 1-3 Total Bilirubin 1.60 mg/dL High 0.2-1.0 Alkaline Phosphatase 38 U/L 34-104 Alt 33 U/L 7-52 Ast 28 U/L 13-39 Egfr Non- 99.1 >60 Egfr 127.4 >60 66 Wound Culture/Sensi 09/20/2013 [facility] Wound/Misc (SEE NOTE) 67 [phone] Culture-Gram Stain Flu Test A, B, Or A 09/20/2013 [facility] House [facility] Influenza A POS & B,Binaxn (607)- - Antigen Influenza B Antigen NEG Laboratory test 09/20/2013 [facility] C Reactive 78.93 mg/L High < 5.00 68 finding [phone] Protein Laboratory test 09/20/2013 [facility] Lactic Acid 0.7 mmol/L 0.5-2.2 finding [phone] CBC Auto Diff 09/20/2013 [facility] White Blood 9.8 4.8-10.8 [phone] Count 10^3/uL Red Blood Count 5.08 10^6/uL 4.0-5.4 Hemoglobin 14.9 g/dL 14.0-18.0 Hematocrit 43 % 42-52 Mean Corpuscular Volume 85 fL 80-94 Mean Corpuscular Hemoglobin 29 pg 27-31 Mean Corpuscular HGB Conc 35 g/dL 31-36 Red Cell Distribution Width 15 % 10.5-15 Platelet Count 99 10^3/uL Low 150-450 Mean Platelet Volume 10 um3 7.4-10.4 Abs Neutrophils 7.3 10^3/uL 1.5-7.7 Abs Lymphocytes 1.3 10^3/uL 1.0-4.8 Abs Monocytes 1.1 10^3/uL High 0-0.8 Abs Eosinophils 0 10^3/uL 0-0.6 Abs Basophils 0 10^3/uL 0-0.2 Abs Nucleated RBC 0.01 10^3/uL Granulocyte % 75.0 % 38-83 Lymphocyte % 13.7 % Low 25-47 Monocyte % 11.0 % High 1-9 Eosinophil % 0 % 0-6 Basophil % 0.3 % 0-2 Nucleated Red Blood Cells % 0.1 Laboratory test 08/26/2013 [facility] PSA Diagnostic 4.029 High 0-4.0 finding [phone] ng/mL Laboratory test 07/01/2013 [facility] PSA Diagnostic 4.274 High 0-4.0 69 finding [phone] ng/mL Comp Metabolic 06/17/2013 [facility] Sodium 133 133-145 Panel [phone] mmol/L Potassium 3.9 mmol/L 3.5-5.0 Chloride 103 mmol/L 101-111 Co2 Carbon Dioxide 25.0 mmol/L 22-32 Anion Gap 5.0 mmol/L 2-11 Glucose 110 mg/dL High 70-100 Blood Urea Nitrogen 11 mg/dL 6-24 Creatinine 0.80 mg/dL 0.50-1.40 BUN/Creatinine Ratio 13.8 8-20 Calcium 8.1 mg/dL 8.1-9.9 Total Protein 6.4 g/dL 6.2-8.1 Albumin 3.8 g/dL 3.2-5.2 Globulin 2.6 g/dL 2-4 Albumin/Globulin Ratio 1.5 1-3 Total Bilirubin 0.9 mg/dL 0.4-1.5 Alkaline Phosphatase 39 U/L 30-110 Alt 35 U/L 14-54 Ast 27 U/L 12-42 Egfr Non- 98.0 >60 Egfr 126.0 >60 70 Lipid Profile 06/17/2013 [facility] Triglycerides 95 mg/dL 40-200 (Trig/Chol/HDL) [phone] Cholesterol 94 mg/dL Low Less than 200 HDL Cholesterol 26 mg/dL Low 40-60 71 Cholesterol/HDL Ratio 3.6 Average 1-4.44 LDL Cholesterol 49.0 Less Than 100 72 Laboratory test 06/17/2013 [facility] Hemoglobin A1c 5.9 % Less than 73 finding [phone] 6.0 TSH (Thyroid Stimulating Horm) 2.25 miu/mL 0.34-5.60 74 PSA Screening 5.810 ng/mL High 0-4.000 75 CBC With 06/17/2013 [facility] White Blood 5.5 10^3/ uL 4.8-10.8 Manual Diff [phone] Count Red Blood Count 4.94 10^6/uL 4.0-5.4 Hemoglobin 13.8 g/dL Low 14.0-18.0 Hematocrit 43 % 42-52 Mean Corpuscular Volume 88 fL 80-94 Mean Corpuscular Hemoglobin 28 pg 27-31 Mean Corpuscular HGB Conc 32 g/dL 31-36 Red Cell Distribution Width 15 % 10.5-15 Platelet Count 94 10^3/uL Low 150-450 Platelet Morphology Large Mean Platelet Volume 11 um3 High 7.4-10.4 Abs Neutrophils 3.4 10^3/uL 1.5-7.7 Abs Lymphocytes 1.5 10^3/uL 1.0-4.8 Abs Monocytes 0.4 10^3/uL 0-0.8 Abs Eosinophils 0.1 10^3/uL 0-0.6 Abs Basophils 0 10^3/uL 0-0.2 Abs Nucleated RBC 0.01 10^3/uL Neutrophil % 62 % 38-83 Band % 1 % 0-8 Lymphocytes % 30 % 25-47 Monocytes % 6 % 0-13 Basophil % 1 % 0-2 RBC Morphology Normal Normal CBC Auto Diff 12/02/2012 [facility] White Blood 6.6 10^3/uL 4.8-10.8 [phone] Count Red Blood Count 4.58 10^6/uL 4.0-5.4 Hemoglobin 13.3 g/dL Low 14.0-18.0 Hematocrit 40 % Low 42-52 Mean Corpuscular Volume 88 fL 80-94 Mean Corpuscular Hemoglobin 29 pg 27-31 Mean Corpuscular HGB Conc 33 g/dL 31-36 Red Cell Distribution Width 14 % 10.5-15 Platelet Count 109 10^3/uL Low 150-450 Mean Platelet Volume 10 um3 7.4-10.4 Abs Neutrophils 5.2 10^3/uL 1.5-7.7 Abs Lymphocytes 0.8 10^3/uL Low 1.0-4.8 Abs Monocytes 0.6 10^3/uL 0-0.8 Abs Eosinophils 0.1 10^3/uL 0-0.6 Abs Basophils 0 10^3/uL 0-0.2 Abs Nucleated RBC 0 10^3/uL Granulocyte % 78.1 % 38-83 Lymphocyte % 11.4 % Low 25-47 Monocyte % 8.9 % 1-9 Eosinophil % 1.4 % 0-6 Basophil % 0.2 % 0-2 Nucleated Red Blood Cells % 0.1 Inr/Protime 12/02/2012 [facility] Inr 1.07 High 0.87-0.97 [phone] Laboratory test 12/02/2012 [facility] Activated 32.3 22.18-37.18 finding [phone] Partial seconds Thrombo Time Comp Metabolic 12/02/2012 [facility] Sodium 137 mmol/ L 133-145 Panel [phone] Potassium 4.3 mmol/L 3.5-5.0 Chloride 104 mmol/L 101-111 Co2 Carbon Dioxide 27.0 mmol/L 22-32 Anion Gap 6.0 mmol/L 2-11 Glucose 96 mg/dL 70-100 Blood Urea Nitrogen 9 mg/dL 6-24 Creatinine 0.70 mg/dL 0.50-1.40 BUN/Creatinine Ratio 12.9 8-20 Calcium 8.7 mg/dL 8.1-9.9 Total Protein 7.4 g/dL 6.2-8.1 Albumin 3.7 g/dL 3.2-5.2 Globulin 3.7 g/dL 2-4 Albumin/Globulin Ratio 1.0 1-3 Total Bilirubin 1.3 mg/dL 0.4-1.5 Alkaline Phosphatase 48 U/L 30-110 Alt 39 U/L 14-54 Ast 33 U/L 12-42 Egfr Non- 114.3 >60 Egfr 147.0 >60 76 Laboratory test 12/02/2012 [facility] Lactic Acid 1.4 mmol/L 0.5-1.6 finding [phone] Troponin I 0 ng/mL 0-0.06 77 C Reactive Protein 1.8 mg/dL High Less than 0.5 Clotest 08/20/2012 [facility] Clotest (SEE NOTE) 78 [phone] Urine Microalbumin 02/13/2012 [facility] Microalbumin 5.0 mg/L Random [phone] (MG/L) Urine Creatinine 113.5 mg/dL [place]/Creatinine Ratio 4.4 UG/MG Less Than 30 79 Urine DIP 02/13/2012 [facility] House [facility] Leukocytes NEG Neg [phone] Urine Nitrites NEG Neg Urine pH 5 5-6 Total Protein, Urine NEG Neg Urine Glucose NORM Norm Urine Ketones NEG Neg Urobilinogen NORM Norm Urine Bilirubin NEG Neg Urine Blood NEG Neg Specific [place] N/A Low 1.01-1.02 Lipid Profile 02/06/2012 [facility] Triglyceride 118 mg/dL 40-200 (Trig/Chol/HDL) [phone] Cholesterol 104 mg/dL Less Than 200 80 High Density Lipoprotein 25 mg/dL Low 40-60 81 Cholesterol/HDL Ratio 4.16 AVERAGE 1-4.97 Low Density Lipoprotein 55 mg/dL Less Than 100 82 CBC Auto Diff 02/06/2012 [facility] White Blood 6.0 CUMM 4.8-10.8 [phone] Count Red Cell Count 4.85 CUMM 4.6-6.2 Hemoglobin 14.5 g/dL 14.0-18.0 Hematocrit 43 % 42-52 Mean Corpuscular Volume 89 um3 80-94 Mean Corpuscular Hemoglob 30 pg 27-31 Mean Corpuscular HGB C[place] 34 g/dL 32-36 Redcell Distribution WDTH 14 % 10.5-15 Platelet Count 101 CUMM Low 150-450 Mean Platelet Volume 11.2 um3 High 7.4-10.4 Gran % 59.1 % 38-83 Lymph % 31.6 % 20-45 Mononuclear % 7.5 % 1-9 Eosinophil % 1.4 % 0-6 Basophil % 0.4 % 0-2 Abs Lymphs 1.9 1.0-4.8 Abs Mononuclear 0.5 0-0.8 Absolute Neutrophil Count 3.5 1.5-7.7 Abs Eosinophils 0.1 0-0.6 Abs Basophils 0 0-0.2 Laboratory test 02/06/2012 [facility] Hemoglobin A1c 6.6 % High Less Than 83 finding [phone] 6.0 Comp Metabolic 02/06/2012 [facility] Sodium 140 135-145 Panel [phone] mmol/L Potassium 4.8 mmol/L 3.5-5.0 Chloride 103 mmol/L 101-111 Co2 (Carbon Dioxide) 31.0 mmol/L 22-32 Anion Gap 6.0 mmol/L 2-11 84 Glucose 110 mg/dL High 70-100 BUN 9 mg/dL 6-24 Creatinine 0.7 mg/dL 0.50-1.40 One Over Creatinine 1.42 BUN/Creatinine Ratio 12.9 8-20 Calcium 9.1 mg/dL 8.1-9.9 Total Protein 6.7 GM/DL 6.2-8.1 Albumin 4.0 GM/DL 3.2-5.2 Globulin 2.7 GM/DL 2-4 Albumin/Globulin Ratio 1.5 1-3 Bilirubin Total 1.0 mg/dL 0.4-1.5 85 Alkaline Phosphatase 46 U/L 39-117 Alt (SGPT) 46 U/L 17-63 Ast (Sgot) 34 U/L 12-42 eGFR Non- 114.6 > 60 eGFR 147.4 > 60 86 Laboratory test 02/06/2012 [facility] TSH 3.54 MIU/ ML 0.34-5.60 finding [phone] CBC Auto Diff 08/08/2011 [facility] White Blood 6.4 CUMM 4.8-10.8 87 [phone] Count Red Cell Count 4.76 CUMM 4.6-6.2 Hemoglobin 14.5 g/dL 14.0-18.0 Hematocrit 42 % 42-52 Mean Corpuscular Volume 88 um3 80-94 Mean Corpuscular Hemoglob 31 pg 27-31 Mean Corpuscular HGB Cone 35 g/dL 32-36 Redcell Distribution WDTH 13 % 10.5-15 Platelet Count 117 CUMM Low 150-450 Mean Platelet Volume 10.8 um3 High 7.4-10.4 Gran % 64.6 % 38-83 Lymph % 25.4 % 25-47 Mononuclear % 7.3 % 1-9 Eosinophil % 2.2 % 0-6 Basophil % 0.5 % 0-2 Abs Lymphs 1.6 1.0-4.8 Abs Mononuclear 0.5 0-0.8 Absolute Neutrophil Count 4.1 1.5-7.7 Abs Eosinophils 0.1 0-0.6 Abs Basophils 0 0-0.2 Comp Metabolic Panel 08/08/2011 [facility] Sodium 141 mmol/L 135-145 [phone] Potassium 4.5 mmol/L 3.5-5.0 Chloride 104 mmol/L 101-111 Co2 (Carbon Dioxide) 28.0 mmol/L 22-32 Anion Gap 9.0 mmol/L 2-11 88 Glucose 99 mg/dL 70-100 BUN 11 mg/dL 6-24 Creatinine 0.8 mg/dL 0.50-1.40 One Over Creatinine 1.25 BUN/Creatinine Ratio 13.8 8-20 Calcium 8.8 mg/dL 8.1-9.9 Total Protein 6.9 GM/DL 6.2-8.1 Albumin 4.1 GM/DL 3.2-5.2 Globulin 2.8 GM/DL 2-4 Albumin/Globulin Ratio 1.5 1-3 Bilirubin Total 0.9 mg/dL 0.4-1.5 89 Alkaline Phosphatase 36 U/L Low 39-117 Alt (SGPT) 50 U/L 17-63 Ast (Sgot) 39 U/L 12-42 eGFR Non- 98.3 > 60 eGFR 126.4 > 60 90 Laboratory test 08/08/2011 [facility] Hemoglobin A1c 7.1 % High Less Than 91 finding [phone] 6.0 Laboratory test 05/09/2011 [facility] Hemoglobin A1c 8.3 % High Less Than 92 finding [phone] 6.0 Liver Function 05/09/2011 [facility] Total Protein 7.2 6.2-8.1 Panel [phone] GM/DL Albumin 4.2 GM/DL 3.2-5.2 Globulin 3.0 GM/DL 2-4 Albumin/Globulin Ratio 1.4 1-3 Bilirubin Total 1.0 mg/dL 0.4-1.5 93 Bilirubin Direct 0.2 mg/dL 0.1-0.5 Indirect Bilirubin 0.8 mg/dL 0.3-1.0 94 Alkaline Phosphatase 47 U/L 39-117 Alt (SGPT) 48 U/L 17-63 Ast (Sgot) 41 U/L 12-42 Basic Metabolic 05/09/2011 [facility] Sodium 140 mmol /L 135-145 Panel [phone] Potassium 4.6 mmol/L 3.5-5.0 Chloride 106 mmol/L 101-111 Co2 (Carbon Dioxide) 28.0 mmol/L 22-32 Anion Gap 6.0 mmol/L 2-11 95 Glucose 168 mg/dL High 70-100 BUN 8 mg/dL 6-24 Creatinine 0.6 mg/dL 0.50-1.40 One Over Creatinine 1.66 BUN/Creatinine Ratio 13.3 8-20 Calcium 8.7 mg/dL 8.1-9.9 eGFR Non- 137.4 > 60 eGFR 176.7 > 60 96 Surgical 12/16/2010 [facility] Surgical --- 97 Pathology [phone] Pathology <SEE NOTE> Laboratory 10/23/2010 [facility] Culture NO ORGANISMS SEE 98, test finding [phone] Sensitivity/G <SEE NOTE> [address] Culture Sensitivity NG2F 100 Surgical 08/27/2010 [facility] Surgical --- 101 Pathology [phone] Pathology <SEE NOTE> CBC With 08/24/2010 [facility] White Blood 6.1 CUMM 4.8 Electronic [phone] Count -10 Diff .8 Red Cell Count 4.82 CUMM 4.6-6.2 Hemoglobin 14.3 g/dL 14.0-18.0 Hematocrit 42 % 42-52 Mean Corpuscular Volume 87 um3 80-94 Mean Corpuscular Hemoglob 30 pg 27-31 Mean Corpuscular HGB Cone 34 g/dL 32-36 Redcell Distribution WDTH 14 % 10.5-15 Platelet Count 86 CUMM Low 150-450 102 Mean Platelet Volume 11.4 um3 High 7.4-10.4 103 Comp Metabolic 08/24/2010 [facility] Sodium 132 mmol/ L Low 135-145 Panel [phone] Potassium 4.1 mmol/L 3.5-5.0 Chloride 99 mmol/L Low 101-111 Co2 (Carbon Dioxide) 26.0 mmol/L 22-32 Anion Gap 7.0 mmol/L 2-11 104 Glucose 337 mg/dL High 70-100 BUN 11 mg/dL 6-24 Creatinine 0.63 mg/dL 0.50-1.40 One Over Creatinine 1.50 BUN/Creatinine Ratio 17.5 8-20 Calcium 8.7 mg/dL 8.1-9.9 Total Protein 6.8 GM/DL 6.2-8.1 Albumin 3.9 GM/DL 3.2-5.2 Globulin 2.9 GM/DL 2-4 Albumin/Globulin Ratio 1.3 1-3 Bilirubin Total 0.6 mg/dL 0.4-1.5 105 Alkaline Phosphatase 54 U/L 39-117 Alt (SGPT) 46 U/L 17-63 Ast (Sgot) 27 U/L 12-42 eGFR Non- 129.9 > 60 eGFR 167.1 > 60 106 Laboratory test 08/24/2010 [facility] Hemoglobin A1c 10.1 % High Less 107 finding [phone] Than 6.0 Manual 08/24/2010 [facility] Polysegmented 68 % 38 -83 Differential [phone] Neutrophil Lymphocyte 24 % Low 25-47 Monocyte 7 % 0-13 Eosinophil 1 % 0-6 Absolute Neutrophil Count 4.1 Anisocytosis SLIGHT Platelet Evaluation DECREASED Lipid Profile 05/25/2010 [facility] Triglyceride 89 mg/dL 40-200 (Trig/Chol/HDL) [phone] Cholesterol 103 mg/dL Less Than 200 108 High Density Lipoprotein 26 mg/dL Low 40-60 109 Cholesterol/HDL Ratio 3.96 AVERAGE 1-4.97 Low Density Lipoprotein 59 mg/dL Less Than 100 110 Laboratory test 05/25/2010 [facility] Hemoglobin A1c 8.8 % High Less Than 111 finding [phone] 6.0 Glucose 173 mg/dL High 70-100 112 Comp Metabolic 05/25/2010 [facility] Sodium 134 mmol/ L Low 135-145 Panel [phone] Potassium 4.1 mmol/L 3.5-5.0 Chloride 101 mmol/L 101-111 Co2 (Carbon Dioxide) 28.0 mmol/L 22-32 Anion Gap 5.0 mmol/L 2-11 113 BUN 10 mg/dL 6-24 Creatinine 0.60 mg/dL 0.50-1.40 One Over Creatinine 1.60 BUN/Creatinine Ratio 16.7 8-20 Calcium 8.7 mg/dL 8.1-9.9 Total Protein 7.4 GM/DL 6.2-8.1 Albumin 4.2 GM/DL 3.6-5.4 Globulin 3.2 GM/DL 2-4 Albumin/Globulin Ratio 1.3 1-3 Bilirubin Total 1.3 mg/dL 0.4-1.5 114 Alkaline Phosphatase 40 U/L 39-117 Alt (SGPT) 49 U/L 17-63 Ast (Sgot) 36 U/L 12-42 eGFR Non- 146.6 > 60 eGFR 177.3 > 60 115 CBC With 05/25/2010 [facility] White Blood 6.7 CUMM 4.8-10.8 Electronic Diff [phone] Count Red Cell Count 4.80 CUMM 4.6-6.2 Hemoglobin 14.2 g/dL 14.0-18.0 Hematocrit 42 % 42-52 Mean Corpuscular Volume 88 um3 80-94 Mean Corpuscular Hemoglob 30 pg 27-31 Mean Corpuscular HGB Cone 34 g/dL 32-36 Redcell Distribution WDTH 15 % 10.5-15 Platelet Count 118 CUMM Low 150-450 Mean Platelet Volume 9.6 um3 7.4-10.4 Gran % 59.7 % 38-83 Lymph % 30.4 % 25-47 Mononuclear % 7.8 % 1-9 Eosinophil % 1.9 % 0-6 Basophil % 0.2 % 0-2 Abs Lymphs 2.0 1.0-4.8 Abs Mononuclear 0.5 0-0.8 Absolute Neutrophil Count 4.0 1.5-7.7 Abs Eosinophils 0.1 0-0.6 Abs Basophils 0 0-0.2 Laboratory test 07/04/2008 [facility] Hemoglobin A1c 7.2 % High <6.0 116 finding [phone] Comp Metabolic 07/04/2008 [facility] Sodium 139 135-145 Panel [phone] mmol/L Potassium 4.1 mmol/L 3.5-5.0 Chloride 103 mmol/L 101-111 Co2 (Carbon Dioxide) 28.0 mmol/L 22-32 Anion Gap 8.0 mmol/L 2-11 117 Glucose 162 mg/dL High 70-100 118 BUN 8 mg/dL 6-24 Creatinine 0.60 mg/dL 0.50-1.40 One Over Creatinine 1.60 BUN/Creatinine Ratio 13.3 8-20 Calcium 8.9 mg/dL 8.1-9.9 119 Total Protein 6.3 GM/DL 6.2-8.1 Albumin 3.6 GM/DL 3.6-5.4 Globulin 2.7 GM/DL 2-4 Albumin/Globulin Ratio 1.3 1-3 Bilirubin Total 1.0 mg/dL 0.4-1.5 Alkaline Phosphatase 41 U/L 39-117 Alt (SGPT) 50 U/L 17-63 Ast (Sgot) 30 U/L 12-42 Lipid Profile 07/04/2008 [facility] Triglyceride 101 mg/dL 40-200 (Trig/Chol/HDL) [phone] Cholesterol 105 mg/dL Less Than 200 120 High Density Lipoprotein 25 mg/dL Low 40-60 121 Cholesterol/HDL Ratio 4.20 AVERAGE 1-4.97 Low Density Lipoprotein 60 mg/dL Less Than 100 122 Laboratory test 07/04/2008 [facility] PSA Screening 2.01 NG/ML 0-4 123 finding [phone] CBC With Manual 07/04/2008 [facility] White Blood 7.1 CUMM 4.8-10.8 Diff [phone] Count Red Cell Count 4.79 CUMM 4.6-6.2 Hemoglobin 14.0 g/dL 14.0-18.0 Hematocrit 41 % Low 42-52 Mean Corpuscular Volume 85 um3 80-94 Mean Corpuscular Hemoglob 29 pg 27-31 Mean Corpuscular HGB Cone 34 g/dL 32-36 Redcell Distribution WDTH 14 % 10.5-15 Platelet Count 116 CUMM Low 150-450 Mean Platelet Volume 10.4 um3 7.4-10.4 Polysegmented Neutrophil 53 % 38-83 Lymphocyte 37 % 25-47 Monocyte 8 % 0-13 Eosenophil 2 % 0-6 Absolute Neutrophil Count 3.7 RBC Morphology NORMAL Comp Metabolic 08/17/2007 [facility] One Over Creatinine 1.25 Panel [phone] Anion Gap 6.0 mmol/L 2-11 124 Albumin/Globulin Ratio 1.4 1-3 Albumin 4.2 GM/DL 3.6-5.4 Alkaline Phosphatase 48 U/L 39-117 Alt (SGPT) 70 U/L High 17-63 Ast (Sgot) 48 U/L High 12-42 BUN 7 mg/dL 6-24 Calcium 9.1 mg/dL 8.7-10.2 Chloride 102 mmol/L 101-111 Co2 (Carbon Dioxide) 30.0 mmol/L 22-32 Globulin 3.0 GM/DL 2-4 Glucose 170 mg/dL High 70-105 Potassium 4.7 mmol/L 3.5-5.0 Sodium 138 mmol/L 135-145 Bilirubin Total 1.2 mg/dL 0.4-1.5 Total Protein 7.2 GM/DL 6.2-8.1 BUN/Creatinine Ratio 8.8 8-20 Creatinine 0.8 mg/dL 0.5-1.4 Laboratory test 08/17/2007 [facility] Hemoglobin A1c 7.5 % High <6.0 125 finding [phone] Lipid Profile 08/17/2007 [facility] Cholesterol/HD 5.05 High 1-4.97 (Trig/Chol/HDL) [phone] L Ratio AVERAGE Cholesterol 111 mg/dL Less Than 200 126 Triglyceride 138 mg/dL 40-200 High Density Lipoprotein 22 mg/dL Low 40-60 127 Low Density Lipoprotein 61 mg/dL Less Than 100 128 Laboratory test 08/17/2007 [facility] PSA Screening 2.38 NG/ML 0-4 129 finding [phone] Urine DIP 09/13/2006 In House Lab Leukocytes trace Neg (607)- - Urine Nitrites neg Neg Urine pH 5 5-6 Total Protein, Urine neg Neg Urine Glucose norm Norm Urine Ketones neg Neg Urobilinogen norm Norm Urine Bilirubin neg Neg Urine Blood neg Neg Specific [place] n/a Low 1.01-1.02 Laboratory test 09/06/2006 [facility] Hemoglobin A1c 8.8 % High <6.0 130 finding [phone] Comp Metabolic 09/06/2006 [facility] One Over 1.42 Panel [phone] Creatinine Anion Gap 5.0 mmol/L 2-11 131 Albumin/Globulin Ratio 1.4 1-3 Albumin 3.9 GM/DL 3.6-5.4 Alkaline Phosphatase 39 U/L 39-117 Alt (SGPT) 46 U/L 17-63 Ast (Sgot) 33 U/L 12-42 BUN 8 mg/dL 6-24 Calcium 8.5 mg/dL Low 8.7-10.2 Chloride 105 mmol/L 101-111 Co2 (Carbon Dioxide) 30.0 mmol/L 22-32 Globulin 2.7 GM/DL 2-4 Glucose 184 mg/dL High 70-105 Potassium 4.5 mmol/L 3.5-5.0 Sodium 140 mmol/L 135-145 Bilirubin Total 0.8 mg/dL 0.4-1.5 Total Protein 6.6 GM/DL 6.2-8.1 BUN/Creatinine Ratio 11.4 8-20 Creatinine 0.7 mg/dL 0.5-1.4 Lipid Profile 09/06/2006 [facility] Cholesterol/HDL 4.14 1-4.97 (Trig/Chol/HDL) [phone] Ratio AVERAGE Cholesterol 87 mg/dL Low Less Than 200 132 Triglyceride 114 mg/dL 40-200 High Density Lipoprotein 21 mg/dL Low 40-60 133 Low Density Lipoprotein 43 mg/dL Less Than 100 134 Laboratory 09/06/2006 [facility] PSA Screening 1.94 0.01-4.0 135 test finding [phone] NG/ML Laboratory 12/09/2005 [facility] Hemoglobin A1c 6.8 % High <6.0 136 test finding [phone] Lipid Profile 06/03/2005 [facility] Cholesterol 89 mg /dL Low Less Than 137, (Trig/Chol/HD [phone] 200 138 L) Triglyceride 206 mg/dL High 40-200 High Density Lipoprotein 19 mg/dL Low 40-60 139 Low Density Lipoprotein 29 mg/dL Less Than 100 140 Cholesterol/HDL Ratio 4.68 AVERAGE 1-4.97 Comp Metabolic 06/03/2005 [facility] One Over Creatinine 1.66 Panel [phone] Anion Gap 7.0 mmol/L 2-11 141 Albumin/Globulin Ratio 1.3 1-3 Albumin 3.8 GM/DL 3.6-5.4 Alkaline Phosphatase 46 U/L 39-117 Alt (SGPT) 57 U/L 17-63 Ast (Sgot) 47 U/L High 12-42 BUN 6 mg/dL 6-24 Calcium 8.4 mg/dL Low 8.7-10.2 Chloride 104 mmol/L 101-111 Co2 (Carbon Dioxide) 29.0 mmol/L 22-32 Globulin 2.9 GM/DL 2-4 Glucose 176 mg/dL High 70-105 Potassium 4.1 mmol/L 3.5-5.0 Sodium 140 mmol/L 135-145 Bilirubin Total 1.1 mg/dL 0.4-1.5 Total Protein 6.7 GM/DL 6.2-8.1 BUN/Creatinine Ratio 10.0 8-20 Creatinine 0.6 mg/dL 0.5-1.4 Laboratory test 06/03/2005 [facility] Hemoglobin A1c 8.2 % High <6.0 142 finding [phone] Microalbumin 06/03/2005 [facility] Socrates 33.6 High Less 143 Random Urine [phone] Alb/Creatinine UG/MG Than 30 Ratio Urine Creatinine 74.4 mg/dL Microalbumin (MG/L) 25.0 mg/L Comp Metabolic 05/31/2004 [facility] Anion Gap 12.0 mmol/L High 2-11 144 Panel [phone] Albumin/Globulin Ratio 1.3 1-3 Albumin 4.1 GM/DL 3.6-5.4 Alkaline Phosphatase 49 U/L 39-117 Alt (SGPT) 51 U/L 17-63 Ast (Sgot) 36 U/L 12-42 BUN 6 mg/dL 6-24 Calcium 8.9 mg/dL 8.7-10.2 Chloride 104 mmol/L 101-111 Co2 (Carbon Dioxide) 23.0 mmol/L 22-32 Creatinine 0.7 mg/dL 0.5-1.4 Globulin 3.2 GM/DL 2-4 Glucose 197 mg/dL High 70-105 Potassium 4.5 mmol/L 3.5-5.0 Sodium 139 mmol/L 135-145 Bilirubin Total 0.8 mg/dL 0.4-1.5 Total Protein 7.3 GM/DL 6.2-8.1 BUN/Creatinine Ratio 8.6 8-20 Laboratory test 05/31/2004 [facility] Hemoglobin A1c 8.3 % High <6.0 145 finding [phone] CBC With 05/31/2004 [facility] White Blood 6.0 CUMM 4.8-10.8 Electronic Diff [phone] Count Hematocrit 43 % 42-52 Hemoglobin 14.6 g/dL 14.0-18.0 Mean Corpuscular HGB Cone 34 g/dL 32-36 Mean Corpuscular Hemoglob 30 pg 27-31 Mean Corpuscular Volume 88 um3 80-94 Mean Platelet Volume 10.5 um3 High 7.4-10.4 Platelet Count 170 CUMM 150-450 Red Cell Count 4.89 CUMM 4.6-6.2 Redcell Distribution WDTH 15 % 10.5-15 CBC With Manual 05/31/2004 [facility] White Blood 6.0 CUMM 4.8-10.8 Diff [phone] Count Atypical Lymph 2 % 0-6 Anisocytosis SLIGHT Band Neutrophil 3 % 0-8 Hematocrit 43 % 42-52 Hemoglobin 14.6 g/dL 14.0-18.0 Eosenophil 5 % 0-6 Lymphocyte 39 % 5-47 Mean Corpuscular HGB Cone 34 g/dL 32-36 Mean Corpuscular Hemoglob 30 pg 27-31 Mean Corpuscular Volume 88 um3 80-94 Metamyelocyte 1 % 0-2 Monocyte 2 % 0-13 Mean Platelet Volume 10.5 um3 High 7.4-10.4 Platelet Count 170 CUMM 150-450 Polysegmented Neutrophil 48 % 38-83 Red Cell Count 4.89 CUMM 4.6-6.2 Redcell Distribution WDTH 15 % 10.5-15 Laboratory test 02/25/2004 In House Lab Glucose By 294 High 78-110 finding (607)- - Moniter Laboratory test 08/27/2003 In House Lab Glucose By 128 High 78-110 finding (607)- - Moniter Comp Metabolic 08/25/2003 [facility] Anion Gap 7.0 mmol/L 2-11 146 Panel [phone] BUN 7 mg/dL 6-24 Calcium 9.1 mg/dL 8.7-10.2 Chloride 106 mmol/L 101-111 Co2 (Carbon Dioxide) 31.0 mmol/L 22-32 Creatinine 0.8 mg/dL 0.5-1.4 Glucose 156 mg/dL High 70-105 Potassium 4.3 mmol/L 3.5-5.0 Sodium 144 mmol/L 135-145 BUN/Creatinine Ratio 8.8 8-20 Albumin/Globulin Ratio 1.5 1-3 Albumin 4.0 GM/DL 3.6-5.4 Globulin 2.7 GM/DL 2-4 Total Protein 6.7 GM/DL 6.2-8.1 Alkaline Phosphatase 38 U/L Low 39-117 Alt (SGPT) 53 U/L 17-63 Ast (Sgot) 43 U/L High 12-42 Bilirubin Total 1.2 mg/dL 0.4-1.5 Liver Function 08/25/2003 [facility] Bilirubin Direct 0.2 mg/dL 0.1-0.5 Panel [phone] Indirect Bilirubin 1.0 mg/dL High 0.1-0.75 Laboratory test 08/25/2003 [facility] Hemoglobin A1c 7.6 % High <6.0 147 finding [phone] Laboratory test 07/11/2003 [facility] Hemoglobin A1c 7.6 finding (607)- - Laboratory test 05/07/2003 [facility] PSA 2.2 0 - 4 148 finding [phone] Lipid Profile 05/07/2003 [facility] Triglycerides 137 23.0 - [phone] mg/dL 253.0 Cholesterol, Total 99 mg/dL Low 120.0 - 200.0 149 HDL Cholesterol 27 mg/dL Low 40.0 - 60.0 LDL Cholesterol, Calc. 45 mg/dL 150 LDL/HDL Cholesterol 1.7 151 Chol/HDL Cholesterol 3.7 152 Laboratory test 05/07/2003 [facility] Hemoglobin A1c 7.8 % 153 finding [phone] Comprehensive 05/07/2003 [facility] Glucose 204 High 61.0 Metabolic [phone] mg/dL - 110.0 BUN 14 mg/dL 5.0 - 21.0 Creatinine, Serum 0.8 mg/dL 0.6 - 1.5 Sodium 141 mmol/L 135.0 - 146.0 Potassium 4.3 mmol/L 3.5 - 5.3 Chloride 106 mmol/L 98.0 - 108.0 Carbon Dioxide 24 mmol/L 23.0 - 33.0 Albumin 4.3 g/dL 3.8 - 4.6 Protein, Total 7.5 g/dL 6.2 - 8.0 Calcium 9.1 mg/dL 8.3 - 10.3 Alkaline Phosphatase 58 U/L 45.0 - 120.0 Sgot (Ast) 41 U/L 9.0 - 43.0 SGPT (Alt) 74 U/L High 11.0 - 51.0 Bilirubin, Total 0.90 mg/dL 0.2 - 1.3 Laboratory test finding 04/18/2002 [facility] D [place] NEGATIVE (607)- - Laboratory test finding 04/16/2002 In House Lab Oximetry - Single 97% (607)- - Study Glucose By Moniter 202 High 78-110 Hemoglobin 13.4 1 Serum levels of PSA measured using the Tanesha Yisel DXI Hybritech immunoassay should not be interpreted as absolute evidence of the presence or absence of disease. The PSA value should be used in conjunction with other pertinent clinical diagnostic procedures. The values obtained with different assay methods or kits cannot be used interchangeably. 2 [id number] 4 SEE RESULT BELOW Name: AMNA WHITNEY : [address]: Haroon Pandey NP Acct: [id number] Unit: [id number] AGE: 67 Location: [facility] Re01/09/18 SEX: M Status: REG REF SPEC: [id number] JUSTICE: 01/09/18-[address]: Haroon Pandey NP REQ: [id number] RECD: 01/09/186126 STATUS: COMP _ SOURCE: LEG, RIGHT SPDESC: ORDERED: Culture Stain COMMENTS: [id number] Specimen Description right brennan Procedure Result Reported Site Wound/Misc Gram Stain Final 01/10/18- 0731 ML 1+ Neutrophils 1+ Epithelial Cells No Organisms Seen Wound/Misc Culture Final 01/11/18- 1435 ML Organism 1 NORMAL MELISSA Quantity 2+ * ML - Main Lab . END OF REPORT DEPARTMENT OF PATHOLOGY, [address] [place] [address] Vitor Barragan M.D. Director [facility] # [id number] 5 Because ethnic data is not always readily available, this report includes an eGFR for both -Americans and non- Americans. The National Kidney Disease Education Program (NKDEP) does not endorse the use of the MDRD equation for patients that are not between the ages of 18 and 70, are , have extremes of body size, muscle mass, or nutritional status, or are non- or non-. According to the National Kidney Foundation, irrespective of diagnosis, the stage of the disease is based on the level of kidney function: Stage Description GFR(mL/min/1.73 m(2)) 1 Kidney damage with normal or decreased GFR 90 2 Kidney damage with mild decrease in GFR 60-89 3 Moderate decrease in GFR 30-59 4 Severe decrease in GFR 15-29 5 Kidney failure <15 (or dialysis) 6 FASTING [id number] 7 Therapeutic target for the treatment of diabetes mellitus patients is <7% HBA1C, and in selective patients <6.0%. Please refer to [place] [employer] diabetic care guidelines for further information. 8 Serum levels of PSA measured using the Tanesha Yisel DXI Hybritech immunoassay should not be interpreted as absolute evidence of the presence or absence of disease. The PSA value should be used in conjunction with other pertinent clinical diagnostic procedures. The values obtained with different assay methods or kits cannot be used interchangeably. 9 Desirable: <150 Borderline High: 150-199 High: 200-499 Very High: >500 10 Desirable: <200 Borderline High: 200-239 High: >239 11 Low: <40 Desirable: 40-60 High: >60 12 Desirable: <100 Near Optimal: 100-129 Borderline High: 130-159 High: 160-189 Very High: >189 13 [id number] 14 SEE RESULT BELOW Name: AMNA WHITNEY : [address]: Antonio Ybarra MD Acct: [id number] Unit: [id number] AGE: 67 Location: [facility] Re12/19/17 SEX: M Status: REG REF SPEC: [id number] JUSTICE: 12/19/17- SUBM DR: Antonio Ybarra MD REQ: [id number] RECD: 12/19/17 STATUS: RACHELLE TUTTLE DR: Haroon Pandey 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 Prostate, left apex, core biopsies: -- Benign prostate tissue. -- No evidence of neoplasia identified. 2. Prostate, left base, core biopsies: -- Benign prostate tissue. -- No evidence of neoplasia identified. 3. Prostate, right apex, core biopsies: -- Benign prostate tissue. -- No evidence of neoplasia identified. 4. Prostate, right base, core biopsies: -- Benign prostate tissue. -- No evidence of neoplasia identified. PRE-OPERATIVE DIAGNOSIS Moderate enlarged prostate POST-OPERATIVE DIAGNOSIS PSA=8.12 GROSS DESCRIPTION 1. The specimen is received in formalin labeled, Left Prostate Lobe [place], and consists of three fragmented elizabeth-pink soft tissue cores ranging from 0.1 x 0.1 cm to 0.7 x 0.1 cm which are submitted entirely in one cassette. CONTINUED ON NEXT PAGE DEPARTMENT OF PATHOLOGY, [address] [place] [address] Vitor Barragan M.D. Director [facility] # [id number] RUN DATE: 12/20/17 [facility] LIVE PAGE 2 Patient: AMNA WHITNEY [id number] (Continued) GROSS DESCRIPTION (Continued) GROSS DESCRIPTION (Continued) 2. The specimen is received in formalin labeled, Left Prostate Lobe Base, and consists of three fragmented elizabeth-pink soft tissue cores ranging from 0.2 x 0.1 cm to 1.2 x 0.1 cm which are submitted entirely in one cassette. 3. The specimen is received in formalin labeled, Right Prostate Lobe [place], and consists of three elizabeth-pink soft tissue cores ranging from 0.9 x 0.1 cm to 1.3 x 0.1 cm which are submitted entirely in one cassette. 4. The specimen is received in formalin labeled, Right Prostate Lobe Base, and consists of three fragmented elizabeth-pink soft tissue cores ranging from 0.5 x 0.1 cm to 0.8 x 0.1 cm which are submitted entirely in one cassette. Signed by and Reported on: Vitor Barragan MD [id number] END OF REPORT DEPARTMENT OF PATHOLOGY, [address] [place] [address] Vitor Barragan M.D. Director [facility] # [id number] 15 Serum levels of PSA measured using the Tanesha [place] DXI Hybritech immunoassay should not be interpreted as absolute evidence of the presence or absence of disease. The PSA value should be used in conjunction with other pertinent clinical diagnostic procedures. The values obtained with different assay methods or kits cannot be used interchangeably. 16 Serum levels of PSA measured using the Tanesha [place] DXI Hybritech immunoassay should not be interpreted as absolute evidence of the presence or absence of disease. The PSA value should be used in conjunction with other pertinent clinical diagnostic procedures. The values obtained with different assay methods or kits cannot be used interchangeably. 17 [id number] Unable to calculate due to low microalbumin 19 Consistent with previous results on 08/15/16. 20 Because ethnic data is not always readily available, this report includes an eGFR for both -Americans and non- Americans. The National Kidney Disease Education Program (NKDEP) does not endorse the use of the MDRD equation for patients that are not between the ages of 18 and 70, are , have extremes of body size, muscle mass, or nutritional status, or are non- or non-. According to the National Kidney Foundation, irrespective of diagnosis, the stage of the disease is based on the level of kidney function: Stage Description GFR(mL/min/1.73 m(2)) 1 Kidney damage with normal or decreased GFR 90 2 Kidney damage with mild decrease in GFR 60-89 3 Moderate decrease in GFR 30-59 4 Severe decrease in GFR 15-29 5 Kidney failure <15 (or dialysis) 21 Desirable <150 Borderline high 150-199 High 200-499 Very High >500 22 Desirable <200 Borderline high 200-239 High >239 23 Low <40 Desirable: 40-60 High: >60 24 Desirable: <100 mg/dL Near Optimal: 100-129 mg/dL Borderline High: 130-159 mg/dL High: 160-189 mg/dL Very High: >189 mg/dL 25 Therapeutic target for the treatment of diabetes Mellitus patients is <7% HBA1C, and in selective patients <6.0%.Please refer to [place] [employer] Diabetic care guidelines for further information. 26 Normal Range 180 to 914 Indeterminate Range 145 to 180 Deficient Range <145 27 Serum levels of PSA measured using the Tanesha Yisel DXI Hybritech immunoassay should not be interpreted as absolute evidence of the presence or absence of disease. The PSA value should be used in conjunction with other pertinent clinical diagnostic procedures. The values obtained with different assay methods or kits cannot be used interchangeably. 28 ANTIBODY NOT DETECTED REFERENCE RANGE IgG <1:64 IgM <1:20 Anaplasma phagocytophilum is the tick-borne agent causing Human Granulocytic Ehrlichiosis (HGE). HGE is distinct and separate from Human Monocytic Ehrlichiosis (HME), caused by Ehrlichia chaffeensis. Serologic crossreactivity between A. phagocytophilum and E. chaffeensis is minimal (5-15%). This test was developed and its analytical performance characteristics have been determined by [employer]. It has not been cleared or approved by the U.S. Food and Drug Administration. The FDA has determined that such clearance or approval is not necessary. This assay has been validated pursuant to the CLIA regulations and is used for clinical purposes. Test Performed by: [employer] [address] [place] [address] 29 Because ethnic data is not always readily available, this report includes an eGFR for both -Americans and non- Americans. The National Kidney Disease Education Program (NKDEP) does not endorse the use of the MDRD equation for patients that are not between the ages of 18 and 70, are , have extremes of body size, muscle mass, or nutritional status, or are non- or non-. According to the National Kidney Foundation, irrespective of diagnosis, the stage of the disease is based on the level of kidney function: Stage Description GFR(mL/min/1.73 m(2)) 1 Kidney damage with normal or decreased GFR 90 2 Kidney damage with mild decrease in GFR 60-89 3 Moderate decrease in GFR 30-59 4 Severe decrease in GFR 15-29 5 Kidney failure <15 (or dialysis) 30 [id number] 31 Therapeutic target for the treatment of diabetes Mellitus patients is <7% HBA1C, and in selective patients <6.0%.Please refer to [place] Diabetes Association Diabetic care guidelines for further information. 32 Serum levels of PSA measured using the [employer] [place] DXI Hybritech immunoassay should not be interpreted as absolute evidence of the presence or absence of disease. The PSA value should be used in conjunction with other pertinent clinical diagnostic procedures. The values obtained with different assay methods or kits cannot be used interchangeably. 33 Consistent with early infection with Borrelia burgdorferi. A new serum specimen should be submitted in 14-21 days to demonstrate seroconversion of IgG. IgM blot criteria is of diagnostic utility only during the first 4 weeks of early Lyme disease. ADDITIONAL INFORMATION [facility] criteria require >=5 bands for IgG or >=2 bands for IgM for the Immunoblot to be considered positive. Bands (e.g.,p41) may be detected in patients without Lyme disease, and patterns not meeting the CDC criteria should be interpreted with caution. Immunoblot should be ordered only on specimens that are positive or equivocal by a FDA-licensed Lyme disease antibody screening test (e.g., EIA). Test Performed by: [place] [address] [employer]mos[employer] Operator: Carlos Mcintosh II, M.D., Ph.D. 34 [id number] Desirable <150 Borderline high 150-199 High 200-499 Very High >500 37 Desirable <200 Borderline high 200-239 High >239 38 Low <40 Desirable: 40-60 High: >60 39 Desirable: <100 mg/dL Near Optimal: 100-129 mg/dL Borderline High: 130-159 mg/dL High: 160-189 mg/dL Very High: >189 mg/dL 40 ANTIBODY NOT DETECTED REFERENCE RANGES: IgG <1:64 IgM <1:20 Elevated antibody levels to B. microti indicate exposure to the organism. Human babesiosis infection is transmitted by the bite of an infected Ixodes tick or less frequently from transfusion with blood from an infected donor. Definitive diagnosis is made by identifying intraerythrocytic organisms in peripheral blood. In patients with low parasitemia, antibody detection by IFA is recommended. IgG levels greater than or equal to 1:1024 can be detected in acute phase patients with parasites in blood smears. The IFA assay can be used as a seroepidemiologic tool to study the frequency and distribution of B. microti in endemic areas especially in persons with mixed infections also involving Borrelia burgdorferi. This test was developed and its analytical performance characteristics have been determined by [facility]. It has not been cleared or approved by the U.S. Food and Drug Administration. The FDA has determined that such clearance or approval is not necessary. This assay has been validated pursuant to the CLIA regulations and is used for clinical purposes. Test Performed by: [facility] [address] [place] [address] 41 Because ethnic data is not always readily available, this report includes an eGFR for both -Americans and non- Americans. The National Kidney Disease Education Program (NKDEP) does not endorse the use of the MDRD equation for patients that are not between the ages of 18 and 70, are , have extremes of body size, muscle mass, or nutritional status, or are non- or non-. According to the National Kidney Foundation, irrespective of diagnosis, the stage of the disease is based on the level of kidney function: Stage Description GFR(mL/min/1.73 m(2)) 1 Kidney damage with normal or decreased GFR 90 2 Kidney damage with mild decrease in GFR 60-89 3 Moderate decrease in GFR 30-59 4 Severe decrease in GFR 15-29 5 Kidney failure <15 (or dialysis) 42 [facility] [address] 43 Consistent with early infection with Borrelia burgdorferi. A new serum specimen should be submitted in 14-21 days to demonstrate seroconversion of IgG. IgM blot criteria is of diagnostic utility only during the first 4 weeks of early Lyme disease. ADDITIONAL INFORMATION CDC criteria require >=5 bands for IgG or >=2 bands for IgM for the Immunoblot to be considered positive. Bands (e.g.,p41) may be detected in patients without Lyme disease, and patterns not meeting the CDC criteria should be interpreted with caution. Immunoblot should be ordered only on specimens that are positive or equivocal by a FDA-licensed Lyme disease antibody screening test (e.g., EIA). Test Performed by: [place] [address] Thermospray Operator: Carlos Mcintosh II, M.D., Ph.D. 44 [facility] [address] 45 Normal Range 180 to 914 Indeterminate Range 145 to 180 Deficient Range <145 46 [facility] [address] 47 [facility] [address] 48 Because ethnic data is not always readily available, this report includes an eGFR for both -Americans and non- Americans. The National Kidney Disease Education Program (NKDEP) does not endorse the use of the MDRD equation for patients that are not between the ages of 18 and 70, are , have extremes of body size, muscle mass, or nutritional status, or are non- or non-. According to the National Kidney Foundation, irrespective of diagnosis, the stage of the disease is based on the level of kidney function: Stage Description GFR(mL/min/1.73 m(2)) 1 Kidney damage with normal or decreased GFR 90 2 Kidney damage with mild decrease in GFR 60-89 3 Moderate decrease in GFR 30-59 4 Severe decrease in GFR 15-29 5 Kidney failure <15 (or dialysis) 49 Desirable <150 Borderline high 150-199 High 200-499 Very High >500 50 Desirable <200 Borderline high 200-239 High >239 51 Low <40 Desirable: 40-60 High: >60 52 Desirable: <100 mg/dL Near Optimal: 100-129 mg/dL Borderline High: 130-159 mg/dL High: 160-189 mg/dL Very High: >189 mg/dL 53 [facility] [address] 54 Therapeutic target for the treatment of diabetes Mellitus patients is <7% HBA1C, and in selective patients <6.0%.Please refer to [place] Diabetes Association Diabetic care guidelines for further information. 55 Consistent with early infection with Borrelia burgdorferi. A new serum specimen should be submitted in 14-21 days to demonstrate seroconversion of IgG. IgM blot criteria is of diagnostic utility only during the first 4 weeks of early Lyme disease. ADDITIONAL INFORMATION CDC criteria require >=5 bands for IgG or >=2 bands for IgM for the Immunoblot to be considered positive. Bands (e.g.,p41) may be detected in patients without Lyme disease, and patterns not meeting the CDC criteria should be interpreted with caution. Immunoblot should be ordered only on specimens that are positive or equivocal by a FDA-licensed Lyme disease antibody screening test (e.g., EIA). Test Performed by: [place] [address] Thermospray Operator: Carlos Mcintosh II, M.D., Ph.D. 56 [facility] [address] 57 Test Performed by: [address] [address] Thermospray Operator: Carlos Mcintosh II, M.D., Ph.D. 58 REFERENCE VALUE <20.0 (Negative) Test Performed by: [address] [address] Thermos[employer]ay Operator: Carlos Mcintosh II, M.D., Ph.D. 59 [facility] [address] 60 [facility] [address] 61 [facility]274 62 Normocytic anemia. Thrombocytopenia with no evidence of platelet clumping or satellitosis. Reviewed by Kamille Andres MD 63 Serum levels of PSA measured using the [employer] DXI Hybritech immunoassay should not be interpreted as absolute evidence of the presence or absence of disease. The PSA value should be used in conjunction with other pertinent clinical diagnostic procedures. The values obtained with different assay methods or kits cannot be used interchangeably. 64 Serum levels of PSA measured using the [employer] [place] DXI Hybritech immunoassay should not be interpreted as absolute evidence of the presence or absence of disease. The PSA value should be used in conjunction with other pertinent clinical diagnostic procedures. The values obtained with different assay methods or kits cannot be used interchangeably. 65 Serum levels of PSA measured using the [employer] [place] DXI Hybritech immunoassay should not be interpreted as absolute evidence of the presence or absence of disease. The PSA value should be used in conjunction with other pertinent clinical diagnostic procedures. The values obtained with different assay methods or kits cannot be used interchangeably. 66 Because ethnic data is not always readily available, this report includes an eGFR for both -Americans and non- Americans. The National Kidney Disease Education Program (NKDEP) does not endorse the use of the MDRD equation for patients that are not between the ages of 18 and 70, are , have extremes of body size, muscle mass, or nutritional status, or are non- or non-. According to the National Kidney Foundation, irrespective of diagnosis, the stage of the disease is based on the level of kidney function: Stage Description GFR(mL/min/1.73 m(2)) 1 Kidney damage with normal or decreased GFR 90 2 Kidney damage with mild decrease in GFR 60-89 3 Moderate decrease in GFR 30-59 4 Severe decrease in GFR 15-29 5 Kidney failure <15 (or dialysis) 67 RUN DATE: 09/26/13 [facility] LAB LIVE PAGE 1 RUN TIME: [address] [place] [address] Specimen Inquiry Name: AMNA WHITNEY : [address]: Leonie Bueno MD Acct: [id number] Unit: [id number] AGE: 63 Location: [facility] Re09/20/13 SEX: M Status: REG REF SPEC: [id number] JUSTICE: 09/20/13-[address]: Leonie Bueno MD REQ: [id number] RECD: 09/23/13-1227 STATUS: COMP _ SOURCE: HAND,RIGHT SPDESC: ORDERED: Culture Stain COMMENTS: Verbal to KHOI DURAND/PHUONG by [id number] at 1205 on 09/24/13. Results read back accurately. Submitted to [facility] via [employer] system by [id number] at 1235 on 09/24/13. QUERIES: Medent Number [id number] Procedure Result Verified Site Wound/Misc Gram Stain Final 09/23/13- 1604 ML 1+ Polys 2+ Gram Positive Cocci Wound/Misc Culture Final 09/26/13- 0843 ML Organism 1 STREP PYOGENES (GRP A) Quantity 3+ 1. STREP PYOGENES (GRP A) M.I.C. RX --------- ------ Chloramphenicol <=1 S Ampicillin <=0.06 S Penicillin <=0.03 S Cefepime <=0.25 S * Cefotaxime <=0.25 S Ceftriaxone <=0.25 S Levofloxacin 0.5 S Azithromycin <=0.25 S Clindamycin <=0.06 S Erythromycin <=0.06 S CONTINUED ON NEXT PAGE * ML=Testing performed at Main Lab DEPARTMENT OF PATHOLOGY, [facility] [place] [address] Vitor Barragan M.D. Director [facility] Permit #[id number] RUN DATE: 09/26/13 [facility] LAB LIVE PAGE 2 RUN TIME: [address] [place] [address] Specimen Inquiry Patient: AMNA WHITNEY SR [id number] (Continued) Specimen: [id number] Collected: 09/20/13-1717 Received: 09/23/13-1226 (Continued) Procedure Result Verified Site Wound/Misc Culture Final (continued) 09/26/13- 842 1. STREP PYOGENES (GRP A) (continued) M.I.C. RX --------- ------ Tetracycline <=0.50 S Vancomycin 0.5 S END OF REPORT * ML=Testing performed at Main Lab DEPARTMENT OF PATHOLOGY, [address] [place] [address] Vitor Barragan M.D. Director [facility] Permit #[id number] 68 Acute inflammation: >10.00 69 Serum levels of PSA measured using the [employer] [place] DXI Hybritech immunoassay should not be interpreted as absolute evidence of the presence or absence of disease. The PSA value should be used in conjunction with other pertinent clinical diagnostic procedures. The values obtained with different assay methods or kits cannot be used interchangeably. 70 Because ethnic data is not always readily available, this report includes an eGFR for both -Americans and non- Americans. The National Kidney Disease Education Program (NKDEP) does not endorse the use of the MDRD equation for patients that are not between the ages of 18 and 70, are , have extremes of body size, muscle mass, or nutritional status, or are non- or non-. According to the National Kidney Foundation, irrespective of diagnosis, the stage of the disease is based on the level of kidney function: Stage Description GFR(mL/min/1.73 m(2)) 1 Kidney damage with normal or decreased GFR 90 2 Kidney damage with mild decrease in GFR 60-89 3 Moderate decrease in GFR 30-59 4 Severe decrease in GFR 15-29 5 Kidney failure <15 (or dialysis) 71 HDL Interpretation: Undesirable: High Risk: Less than 40 mg/dL Desirable: Low Risk: Greater than 60 mg/dL 72 LDL Interpretation: Low Risk Optimal Level: LDL Less than 100 mg/dL Near or Above Optimal: LDL 100-129 mg/dL Borderline High Risk: LDL 130-159 mg/dL High Risk: LDL 160-189 mg/dL Very High Risk: LDL Greater than 189 mg/dL 73 Therapeutic target for the treatment of diabetes Mellitus patients is <7% HBA1C, and in selective patients <6.0%.Please refer to [place] Diabetes Association Diabetic care guidelines for further information. 74 FASTING 75 Serum levels of PSA measured using the [employer] [place] DXI Hybritech immunoassay should not be interpreted as absolute evidence of the presence or absence of disease. The PSA value should be used in conjunction with other pertinent clinical diagnostic procedures. The values obtained with different assay methods or kits cannot be used interchangeably. 76 Because ethnic data is not always readily available, this report includes an eGFR for both -Americans and non- Americans. The National Kidney Disease Education Program (NKDEP) does not endorse the use of the MDRD equation for patients that are not between the ages of 18 and 70, are , have extremes of body size, muscle mass, or nutritional status, or are non- or non-. According to the National Kidney Foundation, irrespective of diagnosis, the stage of the disease is based on the level of kidney function: Stage Description GFR(mL/min/1.73 m(2)) 1 Kidney damage with normal or decreased GFR 90 2 Kidney damage with mild decrease in GFR 60-89 3 Moderate decrease in GFR 30-59 4 Severe decrease in GFR 15-29 5 Kidney failure <15 (or dialysis) 77 Reference Range and Interpretation: TnI (ng/mL) Interpretation Less Than 0.06 ng/mL Not supportive of diagnosis of MA 0.06 - 0.50 ng/mL Indeterminate: suggest serial studies if clinically indicated. Greater than 0.5 ng/mL Consistent with diagnosis of MA 78 RUN DATE: 08/21/12 [facility] LAB LIVE PAGE 1 RUN TIME: [address] [place] [address] Specimen Inquiry Name: AMNA WHITNEY SR : [address]: Glenn Negrete MD Acct: [id number] Unit: [id number] AGE: 62 Location: ENDO Re08/20/12 SEX: M Status: REG REF SPEC: [id number] JUSTICE: 08/20/12-[address]: Glenn Negrete MD REQ: [id number] RECD: 08/20/125 STATUS: COMP OTHR DR: Abad Pereira MD _ SOURCE: ELEAZAR GOEL [facility]: ORDERED: Clotest Procedure Result Verified Site Clotest Final 08/21/12728 ML Clotest Negative END OF REPORT * ML=Testing performed at Main Lab DEPARTMENT OF PATHOLOGY, [address] [place] [address] Vitor Barragan M.D. Director [place] [employer] Permit #[id number] MICROALBUMINURIA IN A RANDOM SAMPLE IS DEFINED : MICROALBUMIN/CREATININE RATIO OF 30-299 ug/mg. . 80 CHOLESTEROL INTERPRETATION: Desirable: Less than 200 MG/DL Borderline-High Risk: 200-239 MG/DL High-Risk: 240 MG/DL and over 81 HDL INTERPRETATION: Undesirable: High Risk: Less than 40 MG/DL Desirable: Low Risk: Greater than 60 MG/DL 82 LDL INTERPRETATION: Low Risk Optimal Level: LDL Less than 100 MG/DL Near or Above Optimal: LDL 100-129 MG/DL Borderline High Risk: LDL 130-159 MG/DL High Risk: LDL 160-189 MG/DL Very High Risk: LDL Greater than 189 MG/DL 83 THERAPEUTIC TARGET FOR THE TREATMENT OF DIABETES MELLITUS PATIENTS IS <7% HBA1C, AND IN SELECTIVE PATIENTS <6.0%. PLEASE REFER TO [place] [employer]ATION DIABETIC CARE GUIDELINES FOR FURTHER INFORMATION. 84 Anion gap measurement may be of limited value in the presence of any alkalosis, especially in a combined acid base disorder. . 85 A metabolite of Naproxen, O-desmethylnaproxen, has been shown to interfere with the Jendrassik-Sasha method for measuring total bilirubin. Samples from patients who have taken Naproxen have shown spurious elevation in total bilirubin levels. 86 Because ethnic data is not always readily available, this report includes an eGFR for both -Americans and non- Americans. The National Kidney Disease Education Program (NKDEP) does not endorse the use of the MDRD equation for patients that are not between the ages of 18 and 70, are , have extremes of body size, muscle mass, or nutritional status, or are non- or non-. According to the National Kidney Foundation, irrespective of diagnosis, the stage of the disease is based on the level of kidney function: Stage Description GFR(mL/min/1.73 m(2)) 1 Kidney damage with normal or decreased GFR 90 2 Kidney damage with mild decrease in GFR 60-89 3 Moderate decrease in GFR 30-59 4 Severe decrease in GFR 15-29 5 Kidney failure <15 (or dialysis) 87 NON FASTING 88 Anion gap measurement may be of limited value in the presence of any alkalosis, especially in a combined acid base disorder. . 89 A metabolite of Naproxen, O-desmethylnaproxen, has been shown to interfere with the Jendrassik-Sasha method for measuring total bilirubin. Samples from patients who have taken Naproxen have shown spurious elevation in total bilirubin levels. 90 Because ethnic data is not always readily available, this report includes an eGFR for both -Americans and non- Americans. The National Kidney Disease Education Program (NKDEP) does not endorse the use of the MDRD equation for patients that are not between the ages of 18 and 70, are , have extremes of body size, muscle mass, or nutritional status, or are non- or non-. According to the National Kidney Foundation, irrespective of diagnosis, the stage of the disease is based on the level of kidney function: Stage Description GFR(mL/min/1.73 m(2)) 1 Kidney damage with normal or decreased GFR 90 2 Kidney damage with mild decrease in GFR 60-89 3 Moderate decrease in GFR 30-59 4 Severe decrease in GFR 15-29 5 Kidney failure <15 (or dialysis) 91 THERAPEUTIC TARGET FOR THE TREATMENT OF DIABETES MELLITUS PATIENTS IS <7% HBA1C, AND IN SELECTIVE PATIENTS <6.0%. PLEASE REFER TO [place] [employer] DIABETIC CARE GUIDELINES FOR FURTHER INFORMATION. 92 THERAPEUTIC TARGET FOR THE TREATMENT OF DIABETES MELLITUS PATIENTS IS <7% HBA1C, AND IN SELECTIVE PATIENTS <6.0%. PLEASE REFER TO [employer] DIABETIC CARE GUIDELINES FOR FURTHER INFORMATION. 93 A metabolite of Naproxen, O-desmethylnaproxen, has been shown to interfere with the Jendrassik-Sasha method for measuring total bilirubin. Samples from patients who have taken Naproxen have shown spurious elevation in total bilirubin levels. 94 Please note updated reference range, effective 01/14/10 95 Anion gap measurement may be of limited value in the presence of any alkalosis, especially in a combined acid base disorder. . 96 Because ethnic data is not always readily available, this report includes an eGFR for both -Americans and non- Americans. The National Kidney Disease Education Program (NKDEP) does not endorse the use of the MDRD equation for patients that are not between the ages of 18 and 70, are , have extremes of body size, muscle mass, or nutritional status, or are non- or non-. According to the National Kidney Foundation, irrespective of diagnosis, the stage of the disease is based on the level of kidney function: Stage Description GFR(mL/min/1.73 m(2)) 1 Kidney damage with normal or decreased GFR 90 2 Kidney damage with mild decrease in GFR 60-89 3 Moderate decrease in GFR 30-59 4 Severe decrease in GFR 15-29 5 Kidney failure <15 (or dialysis) 97 ---- RUN DATE: 12/21/10 [facility] NMI LIVE PAGE 1 RUN TIME: 141 Specimen Inquiry RUN USER: INTERFACE -- Name: AMNA WHITNEY SR Status: [facility] Re12/16/10 Age/Sex: 60/M Unit#: [id number] Location: [facility] : [birth year] -- Specimen: [id number] [id number] Spec Date: 12/16/[address] [facility] [address]: Amna robbins MD Spec Type: SURGICAL P Received: 12/17/10-4398 Copies to: Abad Pereira MD SPECIMEN WIDE EXCISION ATYPICAL MELANOCYTIC PROLIFERATION RIGHT NASAL TIP HISTORY PRE-OP DIAGNOSIS: Atypical melanocytic proliferation right nasal tip; sut ure negrete twelve o'clock GROSS DESCRIPTION The specimen is received in formalin labelled Amna Whitney Sr., Wide Excision Atypical Melanocytic Proliferation Right Nasal Tip, Suture Negrete Twelve O'clock, and consists of a skin excision measuring 1.7 x 1.7 x 0.5 cm. with a suture marking twelve o'clock. The skin is white and shows an irregular shaped brown pigmented macular lesion measuring 1.0 x 0.8 cm. The margins of excision are inked as follows: the margin from twelve through three to six o'clock is inked black and the opposite margin is inked blue. The specimen is serially sectioned and submitted entirely as follows: twelve o'clock tip in cassette A, the remainder of the twelve o'clock half in cassette B, and the remainder of the specimen in cassette C. DIAGNOSIS Nose, right nasal tip, re-excision: A. Lentigo maligna melanoma. B. Size: 7.0 mm. maximal single measured span. C. No invasive melanoma identified. D. Margins: Lentigo maligna approaches to within 5 mm. of the lateral margins of resection and to 3 mm. of the five to seven o'clock tip. Deep margins are clear. COMMENT Level sections as well as immunohistochemical stains with appropriate controls for Melan-A (Mansura-1) and HMB 45 were performed on blocks A through C in the evaluation of this case. Signed Electronically by: VITOR BARRAGAN MD 12/21/10 1419 -- DEPARTMENT OF PATHOLOGY, [address] [place] [address] [facility] Permit #[id number] Vitor Barragan M.D. Director Roque Bai M.D. Industrial Radiographer kath -- 98 RIGHT LEG/BRENNAN 99 NO ORGANISMS SEEN NONE 100 FINAL: NO GROWTH DAY 2 101 ----- RUN DATE: 09/01/10 [facility] NMI LIVE PAGE 1 RUN TIME: 1449 Specimen Inquiry RUN USER: INTERFACE -- Name: AMNA WHITNEY Status: REG REF Re08/27/10 Age/Sex: 60/M Unit#: [id number] Location: [facility] : 50 -- Specimen: [id number] SOUT Spec Date: 08/27/[address]: Amna robbins MD Spec Type: SURGICAL P Received: 08/30/10-5072 Copies to: Whit perla MD SPECIMEN INCISIONAL BIOPSY SKIN LESION RIGHT NASAL TIP HISTORY PRE-OP DIAGNOSIS: Rule out dysplastic nevus GROSS DESCRIPTION The specimen is received in formalin labelled Amna Whitney, Incisional Biopsy Skin Lesion Right Nasal Tip, and consists of an unoriented skin ellipse measuring 0.6 x 0.3 x 0.3 cm. The specimen is inked, sectioned along it's short axis and submitted entirely, one cassette. DIAGNOSIS Skin, right nasal tip, incisional biopsy: Lentiginous junctional melanocytic proliferation with mild to moderate cytologic atypia (see comment). COMMENT The biopsy demonstrates sun damaged skin with a proliferation of somewhat enlarged melanocytes along the dermal epidermal junction. These form occasional small nests and are distributed evenly along the basement membrane. An insipient lentigo maligna melanoma cannot be ruled out. Surgical excision to ensure adequate margins should be considered. The background demonstrates extensive actinic changes. Immunohistochemical stains for Melan-A (Mansura-1) and HMB45 were performed with appropriate controls and support the above rendered diagnosis. Signed Electronically by: VITOR BARRAGAN MD 09/01/10 1449 -- -- DEPARTMENT OF PATHOLOGY, [address] [place] [address] [facility] Permit #[id number] Vitor Barragan M.D. Director Roque Bai M.D. Industrial Radiographer Dir [place] -- 102 NO CLUMPS SEEN ON SMEAR 103 Thrombocytopenia 104 Anion gap measurement may be of limited value in the presence of any alkalosis, especially in a combined acid base disorder. . 105 A metabolite of Naproxen, O-desmethylnaproxen, has been shown to interfere with the [place] method for measuring total bilirubin. Samples from patients who have taken Naproxen have shown spurious elevation in total bilirubin levels. 106 Because ethnic data is not always readily available, this report includes an eGFR for both -Americans and non- Americans. The National Kidney Disease Education Program (NKDEP) does not endorse the use of the MDRD equation for patients that are not between the ages of 18 and 70, are , have extremes of body size, muscle mass, or nutritional status, or are non- or non-. According to the National Kidney Foundation, irrespective of diagnosis, the stage of the disease is based on the level of kidney function: Stage Description GFR(mL/min/1.73 m(2)) 1 Kidney damage with normal or decreased GFR 90 2 Kidney damage with mild decrease in GFR 60-89 3 Moderate decrease in GFR 30-59 4 Severe decrease in GFR 15-29 5 Kidney failure <15 (or dialysis) 107 THERAPEUTIC TARGET FOR THE TREATMENT OF DIABETES MELLITUS PATIENTS IS <7% HBA1C, AND IN SELECTIVE PATIENTS <6.0%. PLEASE REFER TO [place] [employer] DIABETIC CARE GUIDELINES FOR FURTHER INFORMATION. 108 CHOLESTEROL INTERPRETATION: Desirable: Less than 200 MG/DL Borderline-High Risk: 200-239 MG/DL High-Risk: 240 MG/DL and over 109 HDL INTERPRETATION: Undesirable: High Risk: Less than 40 MG/DL Desirable: Low Risk: Greater than 60 MG/DL 110 LDL INTERPRETATION: Low Risk Optimal Level: LDL Less than 100 MG/DL Near or Above Optimal: LDL 100-129 MG/DL Borderline High Risk: LDL 130-159 MG/DL High Risk: LDL 160-189 MG/DL Very High Risk: LDL Greater than 189 MG/DL 111 THERAPEUTIC TARGET FOR THE TREATMENT OF DIABETES MELLITUS PATIENTS IS <7% HBA1C, AND IN SELECTIVE PATIENTS <6.0%. PLEASE REFER TO [place] [employer] DIABETIC CARE GUIDELINES FOR FURTHER INFORMATION. 112 Note change in reference range as of 02/14/08. The change was based on recommendations from the [place] [employer]. 113 Anion gap measurement may be of limited value in the presence of any alkalosis, especially in a combined acid base disorder. . 114 A metabolite of Naproxen, O-desmethylnaproxen, has been shown to interfere with the Jendrassik-Sasha method for measuring total bilirubin. Samples from patients who have taken Naproxen have shown spurious elevation in total bilirubin levels. 115 Because ethnic data is not always readily available, this report includes an eGFR for both -Americans and non- Americans. The National Kidney Disease Education Program (NKDEP) does not endorse the use of the MDRD equation for patients that are not between the ages of 18 and 70, are , have extremes of body size, muscle mass, or nutritional status, or are non- or non-. According to the National Kidney Foundation, irrespective of diagnosis, the stage of the disease is based on the level of kidney function: Stage Description GFR(mL/min/1.73 m(2)) 1 Kidney damage with normal or decreased GFR 90 2 Kidney damage with mild decrease in GFR 60-89 3 Moderate decrease in GFR 30-59 4 Severe decrease in GFR 15-29 5 Kidney failure <15 (or dialysis) 116 THERAPEUTIC TARGET FOR THE TREATMENT OF DIABETES MELLITUS PATIENTS IS <7% HBA1C, AND IN SELECTIVE PATIENTS <6.0%. PLEASE REFER TO [place] [employer] DIABETIC CARE GUIDELINES FOR FURTHER INFORMATION. 117 Anion gap measurement may be of limited value in the presence of any alkalosis, especially in a combined acid base disorder. . 118 Note change in reference range as of 02/14/08. The change was based on recommendations from the [place] [employer]. 119 Please note change in reference range effective 07 . 120 CHOLESTEROL INTERPRETATION: Desirable: Less than 200 MG/DL Borderline-High Risk: 200-239 MG/DL High-Risk: 240 MG/DL and over 121 HDL INTERPRETATION: Undesirable: High Risk: Less than 40 MG/DL Desirable: Low Risk: Greater than 60 MG/DL 122 LDL INTERPRETATION: Low Risk Optimal Level: LDL Less than 100 MG/DL Near or Above Optimal: LDL 100-129 MG/DL Borderline High Risk: LDL 130-159 MG/DL High Risk: LDL 160-189 MG/DL Very High Risk: LDL Greater than 189 MG/DL 123 * SERUM LEVELS OF PSA MEASURED USING THE TANESHA [employer] ACCESS HYBRITECH IMMUNOASSAY SHOULD NOT BE INTERPRETED ABSOLUTE EVIDENCE OF THE PRESENCE OR ABSENCE OF DISEASE. THE PSA VALUE SHOULD BE USED IN CONJUNCTION WITH OTHER PERTINENT CLINICAL DIAGNOSTIC PROCEDURES. 124 Anion gap measurement may be of limited value in the presence of any alkalosis, especially in a combined acid base disorder. . 125 THERAPEUTIC TARGET FOR THE TREATMENT OF DIABETES MELLITUS PATIENTS IS <7% HBA1C, AND IN SELECTIVE PATIENTS <6.0%. PLEASE REFER TO [place] [employer] DIABETIC CARE GUIDELINES FOR FURTHER INFORMATION. 126 Classification: Desirable . 127 Classification: Low . 128 CALCULATED LDL APPROXIMATES THE VALUE OF A DIRECT LDL MEASUREMENT. Classification: Optimal Level . 129 * SERUM LEVELS OF PSA MEASURED USING THE TANESHA YISEL ACCESS HYBRITECH IMMUNOASSAY SHOULD NOT BE INTERPRETED ABSOLUTE EVIDENCE OF THE PRESENCE OR ABSENCE OF DISEASE. THE PSA VALUE SHOULD BE USED IN CONJUNCTION WITH OTHER PERTINENT CLINICAL DIAGNOSTIC PROCEDURES. 130 THERAPEUTIC TARGET FOR THE TREATMENT OF DIABETES MELLITUS PATIENTS IS <7% HBA1C, AND IN SELECTIVE PATIENTS <6.0%. PLEASE REFER TO [employer] ASS[employer]IATION DIABETIC CARE GUIDELINES FOR FURTHER INFORMATION. 131 Anion gap measurement may be of limited value in the presence of any alkalosis, especially in a combined acid base disorder. . 132 Classification: Desirable . 133 Classification: Low . 134 CALCULATED LDL APPROXIMATES THE VALUE OF A DIRECT LDL MEASUREMENT. Classification: Optimal Level . 135 * SERUM LEVELS OF PSA MEASURED USING THE TANESHA YISEL ACCESS HYBRITECH IMMUNOASSAY SHOULD NOT BE INTERPRETED ABSOLUTE EVIDENCE OF THE PRESENCE OR ABSENCE OF DISEASE. THE PSA VALUE SHOULD BE USED IN CONJUNCTION WITH OTHER PERTINENT CLINICAL DIAGNOSTIC PROCEDURES. 136 THERAPEUTIC TARGET FOR THE TREATMENT OF DIABETES MELLITUS PATIENTS IS <7% HBA1C, AND IN SELECTIVE PATIENTS <6.0%. PLEASE REFER TO [place] ASSOCIATION DIABETIC CARE GUIDELINES FOR FURTHER INFORMATION. 137 FASTING 138 Classification: Desirable . 139 Classification: Low . 140 CALCULATED LDL APPROXIMATES THE VALUE OF A DIRECT LDL MEASUREMENT. Classification: Optimal Level . 141 Anion gap measurement may be of limited value in the presence of any alkalosis, especially in a combined acid base disorder. . 142 THERAPEUTIC TARGET FOR THE TREATMENT OF DIABETES MELLITUS PATIENTS IS <7% HBA1C, AND IN SELECTIVE PATIENTS <6.0%. PLEASE REFER TO [place] [employer] ASS[employer]IATION DIABETIC CARE GUIDELINES FOR FURTHER INFORMATION. 143 MICROALBUMINURIA IN A RANDOM SAMPLE IS DEFINED : MICROALBUMIN/CREATININE RATIO OF 30-299 ug/mg. . 144 Anion gap measurement may be of limited value in the presence of any alkalosis, especially in a combined acid base disorder. . 145 THERAPEUTIC TARGET FOR THE TREATMENT OF DIABETES MELLITUS PATIENTS IS <7% HBA1C, AND IN SELECTIVE PATIENTS <6.0%. PLEASE REFER TO [employer] DIAB[employer] ASSOCIATION DIABETIC CARE GUIDELINES FOR FURTHER INFORMATION. 146 Anion gap measurement may be of limited value in the presence of any alkalosis, especially in a combined acid base disorder. . 147 THERAPEUTIC TARGET FOR THE TREATMENT OF DIABETES MELLITUS PATIENTS IS <7% HBA1C. [employer] DI[employer] ASS[employer]IATION DIABETES CARE 2002;25:S33-S49. . 148 . Results obtained using NeoVista MEIA methodology. Serum PSA results should be used only in conjunction with information available from the clinical evaluation of the patient and other diagnostic procedures. Values obtained with different assay methods or kits cannot be used interchangeably. . 149 Cholesterol Risk Levels (NIH) Recommended: under 200 mg/dl Borderline : 200-239 mg/dl High Risk : Above 240 mg/dl . 150 LDL Cholesterol Risk Levels (NIH) Recommended: under 130 mg/dl Borderline: 131 - 159 mg/dl High Risk: above 160 mg/dl . 151 LDL/HDL Risk Ratio Levels MALE FEMALE 1/2 X Average 1.00 1.47 Average 3.55 3.22 2 X Average 6.25 5.03 3 X Average 7.99 6.14 . 152 CHOL/HDL Risk Ratio Levels MALE FEMALE 1/2 X Average 3.4 3.3 Average 5.0 4.4 2 X Average 9.5 7.0 3 X Average 24.0 11.0 . 153 HGBA1C (%) GLUCOSE CONTROL >8 Action Suggested 7-8 Good Control <7 Goal 6-7 Near Normal Glycem <6 Non-diabetic Level . Procedures Date Code Description Status 02/23/2017 52298 EKG, at Least 12 Leads w/Interpretation and Report Completed 2013 80538 I&D Of Abscess Completed 06/13/2013 02035 Therapeutic,Prophylactic,Or Diagnostic Inj,SC/Im Specify Completed Drug 02/13/2012 63744 EKG, at Least 12 Leads w/Interpretation and Report Completed 12/10/2009 93412 EKG, at Least 12 Leads w/Interpretation and Report Completed 07/20/2009 19928 EKG, at Least 12 Leads w/Interpretation and Report Completed 03/10/2007 48540 Holter Monitor-24 hrs,w/interpretation Completed 12/12/2005 79635 I&D Of Abscess Completed 01/12/2004 53626 Removal Of Foreign Body, Foot, Subcutaneous Completed 04/16/2002 59287 Oximetry - Single Study Completed 04/16/2002 88214 EKG, at Least 12 Leads w/Interpretation and Report Completed Encounters Type Date Location Provider Dx Diagnosis Office Visit 01/29/2018 Main Office Haroon Pandey Z00.00 Encntr for general 8:45a CIRCULATION MANAGER-C adult medical exam w/o abnormal findings Z23 Encounter for immunization Office Visit 01/19/2018 4:30p Main Office Dina L03.115 Cellulitis of Shortle, ALARM INSTALLATION TECHNICIAN right lower limb Office Visit 01/15/2018 3:45p Main Office Dina L03.115 Cellulitis of Shortle, ALARM INSTALLATION TECHNICIAN right lower limb Office Visit 01/12/2018 9:45a Main Office Ubaldo L03.115 Cellulitis of MD Evaristo right lower limb Office Visit 01/09/2018 9:30a Main Office Haroon Ricardo L03.115 Cellulitis of Storm, CIRCULATION MANAGER-C right lower limb Office Visit 01/06/2018 10:15a Main Office Renzo Alford S80.921A Unsp superficial III, CIRCULATION MANAGER-C injury of right lower leg, init encntr Office Visit 10/18/2017 3:15p Main Office Ubalod M79.652 Pain in left thigh MD Evaristo Office Visit 08/28/2017 4:00p Main Office Haroon Ricardo G47.30 Sleep apnea, Storm, CIRCULATION MANAGER-C unspecified R00.2 Palpitations I10 Essential (primary) hypertension Office Visit 08/14/2017 3:30p Main Office Haroon Pandey, CIRCULATION MANAGER-C R00.2 Palpitations I10 Essential (primary) hypertension F43.0 Acute stress reaction G47.33 Obstructive sleep apnea (adult) (pediatric) Office Visit 05/23/2017 4:00p Main Office Dina K58.0 Irritable bowel Shortle, ALARM INSTALLATION TECHNICIAN syndrome with diarrhea Office Visit 02/23/2017 10:15a Main Office Haroon Ricardo R00.2 Palpitations Storm, CIRCULATION MANAGER-C E83.42 Hypomagnesemia E11.9 Type 2 diabetes mellitus without complications I10 Essential (primary) hypertension R53.83 Other fatigue Z23 Encounter for immunization Office Visit 01/10/2017 3:00p Main Office Renzo Alford S91.332A Puncture wound III, CIRCULATION MANAGER-C without foreign body, left foot, init encntr S91.331A Puncture wound without foreign body, right foot, init encntr Office Visit 12/21/2016 4:15p Main Office Ubaldo Loera S91.332A Puncture wound MD without foreign body, left foot, init encntr F32.9 Major depressive disorder, single episode, unspecified Z23 Encounter for immunization Office Visit 08/15/2016 11:00a Main Office Haroon Pandey, M75.51 Bursitis of right CIRCULATION MANAGER-C shoulder Office Visit 02/22/2016 9:45a Main Office Haroon Pandey, R53.83 Other fatigue CIRCULATION MANAGER-C F32.8 Other depressive episodes E83.42 Hypomagnesemia Z23 Encounter for immunization Office Visit 01/25/2016 9:30a Main Office Haroon Pandey, F32.8 Other depressive CIRCULATION MANAGER-C episodes L03.116 Cellulitis of left lower limb Office Visit 12/21/2015 8:45a Main Office Haoron Pandey, Z00.00 Encntr for general CIRCULATION MANAGER-C adult medical exam w/o abnormal findings M25.512 Pain in left shoulder C43.39 Malignant melanoma of other parts of face F32.8 Other depressive episodes Z23 Encounter for immunization Office Visit 12/14/2015 10:45a Main Office Haroon Pandey, E83.42 Hypomagnesemia CIRCULATION MANAGER-C A69.20 Lyme disease, unspecified E55.9 Vitamin D deficiency, unspecified Office Visit 11/30/2015 9:45a Main Office Ubaldo Loera, R23.9 Unspecified skin MD changes L03.90 Cellulitis, unspecified Office Visit 04/30/2015 9:45a Main Office Haroon Ricardo R23.9 Unspecified skin Storm, CIRCULATION MANAGER-C changes Office Visit 04/28/2015 4:15p Main Office Anuradha Lua R23.9 Unspecified skin CIRCULATION MANAGER-C changes Office Visit 09/03/2014 11:00a Main Office Anuradha Lua 682.9 Cellulitis & Abscess CIRCULATION MANAGER-C Unspec Site Office Visit 06/16/2014 9:00a Main Office Anuradha Lua 682.9 Cellulitis & Abscess CIRCULATION MANAGER-C Unspec Site Office Visit 05/26/2014 4:45p Main Office Haroon Ricardo 682.9 Cellulitis & Abscess Storm, CIRCULATION MANAGER-C Unspec Site 703.0 Ingrowing Nail V04.81 Need For Prophylactic Vaccination & Inoculation/Influenza Office Visit 12/23/2013 12:00p Main Office Anuradha Lua, 724.2 Lumbago CIRCULATION MANAGER-C Office Visit 10/28/2013 10:30a Main Office Haroon Pandey 682.9 Cellulitis & CIRCULATION MANAGER-C Abscess Unspec Site Office Visit 10/26/2013 10:15a Main Office Whit Hayes 682.9 Cellulitis & Blegen, M.D. Abscess Unspec Site Office Visit 09/26/2013 4:30p Main Office Haroon Pandey 682.9 Cellulitis & CIRCULATION MANAGER-C Abscess Unspec Site 782.3 Edema Office Visit 09/20/2013 4:15p Main Office Leonie Gonzalez 488.82 Influenza Due To Edna Bueno Identified Influenza A Virus Resp [facility] 682.9 Cellulitis & Abscess Unspec Site Office Visit 2013 9:00a Main Office Haroon Ricardo V70.0 Examination General Storm, CIRCULATION MANAGER-C Medical Routine AT Health Care Facility 682.9 Cellulitis & Abscess Unspec Site 790.93 Elevated Prostate Specific Antigen (PSA) V04.81 Need For Prophylactic Vaccination & Inoculation/Influenza Office Visit 06/14/2013 4:45p Main Office Haroon Pandey 682.9 Cellulitis & CIRCULATION MANAGER-C Abscess Unspec Site Office Visit 06/13/2013 10:30a Main Office Whit Arevalo2.9 Cellulitis & Blegen, M.D. Abscess Unspec Site Office Visit 06/10/2013 10:45a Main Office Haroon Pandey 682.9 Cellulitis & CIRCULATION MANAGER-C Abscess Unspec Site Office Visit 05/08/2013 4:45p Main Office Anuradha Stoney, 682.9 Cellulitis & CIRCULATION MANAGER-C Abscess Unspec Site Office Visit 03/06/2013 9:45a Main Office Anuradha Lua, 682.9 Cellulitis & CIRCULATION MANAGER-C Abscess Unspec Site Office Visit 12/20/2012 11:45a Main Office Haroon Pandey, 682.9 Cellulitis & CIRCULATION MANAGER-C Abscess Unspec Site 915.6 Injury Superficial Foreign Body Fingers W/O Infection Office Visit 12/11/2012 2:15p Main Office Haroon Ricardo 682.9 Cellulitis & Abscess Storm, CIRCULATION MANAGER-C Unspec Site Office Visit 11/30/2012 11:00a Main Office Haroon Ricardo 682.9 Cellulitis & Abscess Storm, CIRCULATION MANAGER-C Unspec Site Office Visit 2012 11:00a Main Office Haroon Ricardo 682.9 Cellulitis & Abscess Storm, CIRCULATION MANAGER-C Unspec Site Office Visit 02/13/2012 9:00a Main Office Haroon Ricardo V70.0 Examination General Storm, CIRCULATION MANAGER-C Medical Routine AT Health Care Facility 250.00 Diabetes Mellitus W/O Compl Type II Or Unspec Controlled 401.9 Hypertension Unspec 172.3 Malignant Melanoma Other & Unspec Parts Face Office Visit 08/15/2011 10:30a Main Office Haroon Ricardo 250.00 Diabetes Mellitus Storm, CIRCULATION MANAGER-C W/O Compl Type II Or Unspec Controlled 172.3 Malignant Melanoma Other & Unspec Parts Face Office Visit 05/13/2011 10:45a Main Office Haroon Ricardo 250.00 Diabetes Mellitus Storm, CIRCULATION MANAGER-C W/O Compl Type II Or Unspec Controlled 733.99 Bone & Cartilage Disorder Other Office Visit 05/09/2011 10:15a Main Office Leonie Vickers.02 Diabetes Mellitus Edna Bueno W/O Compl Type II Or Unspec Type Uncontrol 707.15 Ulcer Of Other Part Of Foot V04.81 Need For Prophylactic Vaccination & Inoculation/Influenza Office Visit 04/20/2011 11:30a Main Office Anuradha Lua, 883.1 Open Wound CIRCULATION MANAGER-C Finger(S) Complicated Office Visit 01/07/2011 9:00a Main Office Haroon Pandey, 250.02 Diabetes Mellitus CIRCULATION MANAGER-C W/O Compl Type II Or Unspec Type Uncontrol Office Visit 10/23/2010 10:30a Main Office Abad Pereira M.D. 682.6 Cellulitis & Abscess Leg Except Foot Office Visit 10/19/2010 8:45a Main Office Haroon Pandey, 250.00 Diabetes Mellitus CIRCULATION MANAGER-C W/O Compl Type II Or Unspec Controlled Office Visit 10/01/2010 3:15p Main Office Haroon Pandey, 682.6 Cellulitis & CIRCULATION MANAGER-C Abscess Leg Except Foot Office Visit 09/14/2010 9:00a Main Office Haroon Pandey, 250.00 Diabetes Mellitus CIRCULATION MANAGER-C W/O Compl Type II Or Unspec Controlled 401.9 Hypertension Unspec Office Visit 08/31/2010 8:45a Main Office Haroon Ricardo 250.00 Diabetes Mellitus Storm, CIRCULATION MANAGER-C W/O Compl Type II Or Unspec Controlled Office Visit 06/01/2010 8:00a Main Office Haroon Ricardo 250.00 Diabetes Mellitus Storm, CIRCULATION MANAGER-C W/O Compl Type II Or Unspec Controlled 401.9 Hypertension Unspec 709.8 Skin Disorders Other Spec V06.1 Skcgascnkc-Kzikwgh-Amvnnlhe Combined (DTaP) V04.81 Need For Prophylactic Vaccination & Inoculation/Influenza Office Visit 12/10/2009 4:00p Main Office Abad Pereira M.D. 786.50 Pain Chest Unspec 682.6 Cellulitis & Abscess Leg Except Foot Office Visit 07/20/2009 3:15p Main Office Mirna Ridley, 786.50 Pain Chest M.D., R.D. Unspec 785.1 Palpitations 780.57 Unspecified Sleep Apnea 250.00 Diabetes Mellitus W/O Compl Type II Or Unspec Controlled 401.9 Hypertension Unspec Office Visit 02/21/2009 10:30a Main Office Haroon Pandey, 682.6 Cellulitis & CIRCULATION MANAGER-C Abscess Leg Except Foot 380.22 Otitis Externa Other Acute 382.9 Otitis Media Unspec 715.90 Osteoarthrosis Unspec Genlzd Or Localzd Site Unspec Office Visit 10/24/2008 9:45a Main Office Eloy Chaves, 250.00 Diabetes Mellitus M.D. W/O Compl Type II Or Unspec Controlled 401.9 Hypertension Unspec 564.1 Irritable Bowel Syndrome 448.1 Nevus Non-Neoplastic V76.51 Special Screening For Malignant Neoplasms Colon 780.57 Unspecified Sleep Apnea V70.0 Examination General Medical Routine AT Health Care Facility Office Visit 07/07/2008 3:00p Main Office Eloy Chaves, 250.00 Diabetes Mellitus M.D. W/O Compl Type II Or Unspec Controlled 401.9 Hypertension Unspec 564.1 Irritable Bowel Syndrome 448.1 Nevus Non-Neoplastic Office Visit 12/27/2007 3:45p Main Office Michelle Robins 682.6 Cellulitis & Sheyla, F.N.P.C. Abscess Leg Except Foot Office Visit 12/24/2007 3:30p Main Office Michelle Robins 682.6 Cellulitis & Sheyla, F.N.P.C. Abscess Leg Except Foot Office Visit 10/12/2007 1:30p Main Office Haroon Pandey, 682.6 Cellulitis & CIRCULATION MANAGER-C Abscess Leg Except Foot Office Visit 08/20/2007 12:45p Main Office Eloy Chaves 250.00 Diabetes Mellitus M.D. W/O Compl Type II Or Unspec Controlled 401.9 Hypertension Unspec 682.6 Cellulitis & Abscess Leg Except Foot 709.1 Vascular Disorders Of Skin V16.0 History Family Malignant Neoplasm Gastrointestinal Tract 564.1 Irritable Bowel Syndrome 278.00 Obesity Unspec Office Visit 08/08/2007 11:30a Main Office Abad Pereira M.D. 250.00 Diabetes Mellitus W/O Compl Type II Or Unspec Controlled 682.6 Cellulitis & Abscess Leg Except Foot Office Visit 06/29/2007 11:15a Main Office Eloy Chaves 250.00 Diabetes Mellitus M.D. W/O Compl Type II Or Unspec Controlled 401.9 Hypertension Unspec Office Visit 03/09/2007 11:15a Main Office Eloy Chaves M.D. 785.1 Palpitations 250.00 Diabetes Mellitus W/O Compl Type II Or Unspec Controlled Office Visit 09/13/2006 1:45p Main Office Eloy Chaves 250.00 Diabetes Mellitus M.D. W/O Compl Type II Or Unspec Controlled 401.9 Hypertension Unspec 600.00 Hypertrophy Prostate W/O Urinary Obstruction & Other Luts 709.1 Vascular Disorders Of Skin V70.0 Examination General Medical Routine AT Health Care Facility V16.0 History Family Malignant Neoplasm Gastrointestinal Tract 564.1 Irritable Bowel Syndrome 278.00 Obesity Unspec Office Visit 03/04/2006 9:15a Main Office Michelle Robnis 682.6 Cellulitis & Sheyla, F.N.P.C. Abscess Leg Except Foot Office Visit 01/11/2006 2:45p Main Office Paresh Cortez, 681.11 Onychia & M.D. 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 W/O Compl Type II Or Unspec Controlled 786.05 Shortness Of Breath Office Visit 07/30/2004 11:00a Main Office Eloy Chaves 682.7 Cellulitis & M.D. Abscess Foot Except Toes Office Visit 07/05/2004 3:45p Main Office Eloy Chaves 250.00 Diabetes Mellitus M.D. W/O Compl Type II Or Unspec Controlled 564.1 Irritable Bowel Syndrome Office Visit 05/31/2004 12:30p Main Office Michelle Robins 682.6 Cellulitis & Sheyla, F.N.P.C. Abscess Leg Except Foot 250.00 Diabetes Mellitus W/O Compl Type II Or Unspec Controlled Office Visit 02/25/2004 11:00a Main Office Whit Hayes 380.22 Otitis Externa Edna Mar Other Acute 250.00 Diabetes Mellitus W/O Compl Type II Or Unspec Controlled Office Visit 08/27/2003 12:45p Main Office Eloy Chaves V70.0 Examination M.D. General Medical Routine AT Health Care Facility 250.00 Diabetes Mellitus W/O Compl Type II Or Unspec Controlled 401.9 Hypertension Unspec 564.1 Irritable Bowel Syndrome 780.57 Unspecified Sleep Apnea V76.9 Screening Malignant Neoplasm Unspec Office Visit 05/14/2003 2:00p Main Office Eloy Lessinger, 250.00 Diabetes Mellitus M.DChitra W/O Compl Type II Or Unspec Controlled 564.1 Irritable Bowel Syndrome 600.0 Hypertrophy Benign Of Prostate 600 BPH Hyperplasia Prostate Office Visit 04/16/2002 11:45a Main Office Whit Hayes 786.05 Shortness Of Blegen, M.DChitra Breath 786.50 Pain Chest Unspec 782.3 Edema Office Visit 12/31/2001 9:30a Main Office Michelle Robins 380.10 Otitis Externa Ray Carrion.N.P.C. Infective Unspec 382.9 Otitis Media Unspec 380.4 Impacted Cerumen Office Visit 10/12/2001 4:45p Main Office Anuradha Dillon, 729.6 Foreign Body Edna Residual Soft Tissue Plan of Treatment 04/14/2018 - Abad Pereira M.D.L03.116 Cellulitis of left lower limbNew Medication :Amoxicillin 500 mg - 1 by mouth three times a day x 10 daysAmmonium Lactate 12 % - apply to heels bid for dry cracked skinComments:Recurrent cellulitis.Start course of antibiotics.Also given prescription for ammonium lactate to help reduce thickened cracking skin on his heels.
--- OUTSIDE RECORDS SUMMARY | 2018-05-13 10:59 | XMS REPORT ---
:1950 External Reference #:[id number] Author Organization [email or web address]) [facility] Address [address] [place] [address] [place] [address] Phone [phone] Care Team Providers Name Role Phone Haroon Pandey NP Primary Care Physician Unavailable Payers Type Date Identification Numbers Payment Provider Subscriber Medicare Primary Policy Number: [id number] Medicare Amna Jairo Xiomara VIDES PayID: [id number] [address] [place] [address] Medigap Part B Policy Number: [facility] Amna Brownmike SR [id number] PayID: [id number] [address] [place] [address] Medigap Part B Expires: 2015 Policy Number: [employer] Yessenia Gonzalesshekhar [id number] PayID: [id number] [address] [address] [place] [address] Problems Date Description Provider Status Onset: 05/25/2017 Aneurysm of thoracic aorta Yessenia Carlson M.D. 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 day if needed for skin wound Lisinopril 05/25/ Active Tablets 5mg 90tabs 1 by mouth Yessenia 2017 every day [place], at night M.DChitra Metoprolol 05/25/ Active Tablets ER 25mg 90tabs 1 by mouth I71.2 Yessenia Succinate ER 2017 24HR every day Edna Carlson Metformin HCL / Active 850mg tid Unknown ER (Osm) 0000 Hyoscyamine / Active 0.375mg Unknown Sulfate ER 0000 tid Levemir / Active Solution 100Unit/ML inject up Unknown 0000 to 100 units bid into the fatty tissue to keep am blood sugars under 150 Bupropion HCL / Active Tablets ER 300mg 1 by mouth Unknown ER (XL) 0000 24HR every day Vitamin D3 / Active Tablets 95520Kexg one by Unknown Ultra Potency 0000 mouth once weekly Silvadene / Active Cream 1% use as Unknown 0000 directed Naproxen / Active Tablets 250mg as needed Unknown 0000 Ibuprofen / Active prn Unknown 0000 Magnesium / Active Capsules 400mg 30caps 1 by mouth Unknown Oxide 0000 twice a day Iron / Active daily Unknown 0000 Tamsulosin HCL / Active Capsules 0.4mg 1 by mouth Unknown 0000 every day Dutasteride / Active Capsules 0.5mg once daily Unknown 0000 Levemir / Hx 95Units Unknown 0000 - bid 2016 Sertraline HCL / Hx 200mg qd Unknown 0000 - 2016 Lisinopril / Hx 10mg qd daily Unknown 0000 - 2016 Ibuprofen / Hx 600-800mg Unknown 0000 - bid prn 2016 Clindamycin / Hx 300mg qid Unknown HCL - 2016 Lisinopril / Hx Tablets 10mg 1/2 by Unknown 0000 - mouth 05/25/ every day 2016 Sertraline HCL 00/ Hx Tablets 100mg 2 by mouth Unknown 0000 - every day 2016 Doxycycline / Hx Capsules 100mg one tablet Unknown Hyclate 0000 - twice daily prn 2018 Tramadol HCL / Hx Tablets 50mg 1tablet Unknown 0000 - every 6 04/12/ hours as 2017 needed Magnesium / Hx Capsules 400mg 1 by mouth Unknown Oxide 0000 - twice 04/13/ every day 2016 Magnesium 27 /00/ Hx Unknown 0000 - 2016 Magnesium / Hx Unknown Chloride-Calci 0000 - um 2016 Amoxicillin/Cl / Hx Tablets 875-125mg twice Unknown avulanate 0000 - daily Potassium 2017 Medications Administered in Office Medication Date Status Form Strength Qnty SIG Indications Ordering Provider Inj, 04/21/ Administered Injection Darrion Alvarado Regadenoson, 0.1 2016 Brand, MG M.DChitra Aminophylline 04/21/ Administered Injection Darrion Alvarado 2017 Edna Wick Technetium TC 04/21/ Administered Injection Darrion Alvarado 99M Tetrofosmin, 2016 Brand, Per Unit Dose Up M.D. To 40 Millicuries Vital Signs Date Vital Result Comment 05/07/2018 Height 71.75 inches 5'11.75" Weight 298.00 lb Heart Rate 72 /min BP Systolic Sitting 126 mmHg BP Diastolic Sitting 76 mmHg Respiratory Rate 14 /min Body Temperature 98.6 F BMI (Body Mass Index) 40.7 kg/m2 03/02/2018 Height 71.75 inches 5'11.75" Weight 293.50 lb Heart Rate 72 /min BP Systolic Sitting 112 mmHg BP Diastolic Sitting 60 mmHg Respiratory Rate 16 /min Body Temperature 98.0 F BMI (Body Mass Index) 40.1 kg/m2 02/01/2018 Height 71.75 inches 5'11.75" Weight 290.50 lb Heart Rate 76 /min BP Systolic Sitting 114 mmHg BP Diastolic Sitting 68 mmHg Respiratory Rate 14 /min Body Temperature 98.6 F BMI (Body Mass Index) 39.7 kg/m2 05/25/2017 Height 71.75 inches 5'11.75" Weight 287.00 lb with shoes Heart Rate 76 /min BP Systolic Sitting 100 mmHg Rue lg cuff BP Diastolic Sitting 60 mmHg Rue lg cuff BP Systolic Standing 120 mmHg Rue lg cuff BP Diastolic Standing 70 mmHg Rue lg cuff Respiratory Rate 17 /min BMI (Body Mass Index) 39.2 kg/m2 Ejection Fraction 55-60% date 04/26/2017 ECHO 04/13/2017 Height 71.75 inches 5'11.75" Weight 288.00 lb with shoes Heart Rate 82 /min BP Systolic 118 mmHg Rue lg cuff BP Diastolic 80 mmHg Rue lg cuff BP Systolic Sitting 140 mmHg Lue lg cuff BP Diastolic Sitting 86 mmHg Lue lg cuff BP Systolic Standing 144 mmHg Lue lg cuff BP Diastolic Standing 90 mmHg Lue lg cuff BP Systolic Recheck 124 mmHg Rue lg cuff BP Diastolic Recheck 80 mmHg Rue lg cuff BMI (Body Mass Index) 39.3 kg/m2 Ejection Fraction 57% date 07/24/2008 ECHO 10/11/2013 Height 72 inches 6'0" Weight 290.00 lb Heart Rate 85 /min BP Systolic 117 mmHg BP Diastolic 70 mmHg BMI (Body Mass Index) 39.3 kg/m2 09/27/2013 Height 72 inches 6'0" Weight 290.00 lb Heart Rate 81 /min BP Systolic 117 mmHg BP Diastolic 74 mmHg BMI (Body Mass Index) 39.3 kg/m2 Results Test Date Test Result H/L Range Note Order 05/07/2018 Echocardiogram <pending> Surgical Pathology 09/30/2013 S RUN DATE: 10/03/ <SEE 1 NOTE> 1 RUN DATE: 10/03/13 [facility] LAB LIVE PAGE 1 RUN TIME: [address] [place], [place] [address] Specimen Inquiry Name: AMNA WHITNEY SR : [address]: Miguelito Gomez MD Acct: [id number] Unit: [id number] AGE: 63 Location: OR Re09/30/13 SEX: M Status: REG [facility] [place] [facility] SPEC: [id number] JUSTICE: 09/30/13- SUBM DR: Miguelito Gomez MD REQ: [id number] RECD: 09/30/13 STATUS: SOUT _ ORDERED: MAHENDRA, PASS STAIN, GMSS, ACID FAST TB ST, CD68 STAIN, LEVEL III FINAL DIAGNOSIS Skin, right hand, debridement: 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 COMMENT: The history of a prior sutured wound at this site with secondary infection by Streptococcus pyogenes is noted. Histologic sections show widespread granulomatous dermatitis with areas of necrobiosis and caseation. Occasional multinucleate histiocytes containing fragments of foreign material in their cytoplasm are present in the granulomatous infiltrate. Fungal and mycobacterial stains are negative. The pattern of granulomatous inflammation seen in this specimen is likely entirely attributable to a foreign body-type reaction; however, a secondary deep fungal or atypical mycobacterial infectious process could have similar histologic features and cannot be entirely excluded. If surgical treatment of this wound does not provide adequate resolution, correlation with mycobacterial and fungal cultures would be recommended. CONTINUED ON NEXT PAGE * ML=Testing performed at Main Lab DEPARTMENT OF PATHOLOGY, [facility] foodp[employer] / [employer] [place] [address] Vitor Barragan M.D. Director [facility] Permit #[id number] RUN DATE: 10/03/13 [facility] LAB LIVE PAGE 2 RUN TIME: 1855 [facility] [address] [place], [place] [address] Specimen Inquiry Patient: AMNA WHITNEY SR [id number] (Continued) SPECIMEN COMMENTS (Continued) PRE-OPERATIVE DIAGNOSIS Abscess right hand. GROSS DESCRIPTION The specimen is received in formalin labeled Amna Whitney Sr., Seroma /Scar Questionable Inclusion Cyst and consists of two, elizabeth-white, rubbery, irregular portions of soft tissue measuring 0.9 x 0.8 x 0.4 cm. and 1.7 x 0.5 x 0.5 cm. Submitted entirely, one cassette. MICROSCOPIC DESCRIPTION Histologic sections show fragments of dermal and subcutaneous tissue with an extensive intradermal granulomatous infiltrate. Well-formed and loosely cohesive granulomata are present composed of epithelioid histiocytes and occasional multinucleate histiocytes. Polarization microscopy shows occasional bits of foreign material in the cytoplasm of multinucleate histiocytes. Focally the granulomata are caseating with an associated infiltrate of lymphocytes. Stains, with appropriately reacting controls, are positive for CD68, and negative for MAHENDRA, GMS, PAS, and AFB. Signed (signature on file) Kamille Andres MD 04/08 1730 END OF REPORT * ML=Testing performed at Main Lab DEPARTMENT OF PATHOLOGY, [address] [place] [address] Vitor Barragan M.D. Director [facility] Permit #[id number] Procedures Date CPT Code Description Status 05/07/2018 22839 ECHO Transthoracic, Real-Time 2D With Doppler And Color Completed Flow 05/03/2017 71731 Holter Monitor Review (24 hr)dr gill & simbap only Completed 05/01/2017 39002 ECG Monitor/Recording W/Visual Superimposition Scanning Completed 04/26/2017 03932 ECHO Transthoracic, Real-Time 2D With Doppler And Color Completed Flow 04/26/2017 26568 ECHO Transthoracic, Real-Time 2D With Doppler And Color Completed Flow 04/21/2017 33640 Stress Test Completed 04/21/2017 04005 Myocardial Perfusion Imaging Tomographic (Spect) Completed Multiple Studies 04/13/2017 42499 EKG Tracing & Interpretation Completed 09/30/2013 90769 Excision Tumor,Soft Tissue Of Hand Or Finger Subq Completed 09/30/2013 07290 Excision Tumor,Soft Tissue Of Hand Or Finger Subq Completed Encounters Type Date Location Provider CPT E/M Dx Office Visit 03/02/2018 [facility] Ej Alvarado 79429 E11.51 9:10a Infectious Diseases Edna Oakes I87.2 Office Visit 02/01/2018 4:20p [facility] Ej Oakes, 79353 Z86.19 Infectious Corin Bishop E11.51 Office Visit 05/25/2017 4:00p [facility] Yessenia Carlson M.D. 07191 R00.2 Combination Technician I71.2 E66.9 Office Visit 04/13/2017 2:00p [facility] Yessenia Carlson M.D. 46966 R00.2 Combination Technician I10 E66.9 E11.8 R05 M25.512 Office Visit 09/27/2013 11:00a [facility] Miguelito Gomez, 83690 682.4 C.M.A. Edna Office Visit 09/24/2013 11:02a [facility], Chuck Zimmerman, 60729 682.4 Hospitalists N.P. 250.02 487.1 276.51 Office Visit 09/23/2013 11:01a [facility], Chuck Zimmerman 39074 682.4 Hospitalists N.P. 250.02 487.1 276.51 Office Visit 09/22/2013 11:00a [facility], Chuck Zimmerman 39874 682.4 Hospitalists N.P. 250.02 487.1 276.51 Office Visit 09/21/2013 10:59a [facility] Piotr Jenny Holt, 99534 682.4 Assoc,pc Jessa Bishop Hospitalist 250.02 Office Visit 12/05/2012 8:00a [facility] Assoc,pc Cong Mccoy 93034 682.6 Hospitalists Edna Schroeder 250.02 401.9 564.1 Office Visit 12/04/2012 8:00a [facility] Assoc,pc Cong Mccoy 96674 682.6 Hospitalists Edna Schroeder 250.02 401.9 564.1 Office Visit 12/03/2012 7:59a [facility] Assoc,peng Mccoy 73535 682.6 Hospitalists Edna Schroeder 250.02 401.9 564.1 Office Visit 12/02/2012 7:59a [facility] Assoc,peng Mccoy 61639 250.02 Hospitalanthony Schroeder M.D. 682.6 401.9 564.1 Plan of Care Future Appointment(s):08/06/2018 3:40 pm - James Oakes M.D. at [facility]83/17/2018 3:00 pm - Yessenia Carlson M.D. at [facility]05/07/2018 - James Oakes M.D.I71.2 Thoracic aortic aneurysm, without rupture
[2018-05-13 12:43] LABS: ABS Basophils 0.1 10^3/ul (0-0.2); ABS Eosinophils 0.1 10^3/ul (0-0.6); ABS Lymphocytes 0.9 10^3/ul (1.0-4.8); ABS Monocytes 1.3 10^3/ul (0-0.8); ABS Nucleated RBC 0 10^3/ul; Eosinophil % 0.3 % (0-6); Hematocrit 46 % (42-52); Hemoglobin 15.6 g/dl (14.0-18.0); Lymphocyte % 5.2 % (25-47); Mean Corpuscular HGB Conc 34 g/dl (31-36); Mean Corpuscular Hemoglobin 29 pg (27-31); Mean Corpuscular Volume 87 fL (80-94); Mean Platelet Volume 8.9 fL (7.4-10.4); Nucleated Red Blood Cells % 0; Platelet Count 147 10^3/ul (150-450); Red Blood Count 5.33 10^6/ul (4.00-5.40); Red Cell Distribution Width 14 % (10.5-15); White Blood Count 17.3 10^3/ul (3.5-10.8)
--- NOTE | 2018-05-13 12:54 | ED ---
GI/ HPI - HPI Summary HPI Summary: Patient is a 67-year-old male presenting to the ED with chief complaint of "shivering" which was unstoppable times approximately 45 minutes. He states this is not normal for him as he does not even on a coat and never gets cold. He is also endorsing a cough and chest congestion. He is also endorsing difficulty urinating and burning and urgency with urination. He has had a history of prostate problems, however this improved after he was placed on medication. He states he has recurrent cellulitis in the bilateral lower extremities and is been placed on amoxicillin, however is not taking this currently as the cellulitis has cleared from his legs. He is also seeing Dr. Oakes regarding this issue. He denies any abdominal pain, nausea, vomiting, diarrhea, constipation or chest discomfort. Denies any shortness of breath. Denies any headache or neck pain. He states he has not taken his temperature, but has been denying any sweats. History of diabetes wit with insulin dependency , recurrent bilateral lower extremity cellulitis, HTN and BPH. Currently taking tamsulosin. - History of Current Complaint Chief Complaint: EDGeneral Time Seen by Provider: 05/13/18 10:57 Stated Complaint: GENERAL ILLNESS Hx Obtained From: Patient Onset/Duration: Started Hours Ago Timing: Constant Severity: Moderate Current Severity: Moderate Pain Intensity: 0 Associated Signs and Symptoms: Positive: UTI Symptoms Aggravating Factor(s): Nothing Alleviating Factor(s): Nothing - Allergy/Home Medications Allergies/Adverse Reactions: Allergies Allergy/AdvReac Type Severity Reaction Status Date / Time No Known Allergies Allergy Verified 05/13/18 10:49 Home Medications: Home Medications BuPROPion XL* [Bupropion XL*] 300 mg PO DAILY 05/13/18 [History Confirmed ] Metoprolol Succinate 25 mg PO DAILY 05/13/18 [History Confirmed 05/13/18] Tamsulosin HCl 0.4 mg PO DAILY 05/13/18 [History Confirmed 05/13/18] PMH/Surg Hx/FS Hx/Imm Hx Previously Healthy: Yes Endocrine/Hematology History: Reports: Hx Diabetes - TYPE 2 Cardiovascular History: Reports: Hx Hypertension - ON MEDS, Other Cardiovascular Problems/Disorders - irregular heart rate Denies: Hx Congestive Heart Failure, Hx Pacemaker/ICD Respiratory History: Reports: Hx Sleep Apnea, Other Respiratory Problems/ Disorders - sleep apnea GI History: Reports: Hx Irritable Bowel, Other GI Disorders - IBS History: Reports: Other Problems/Disorders - ENLARGE PROSTATE Musculoskeletal History: Reports: Hx Arthritis - BILATERAL FINGERS, HIPS, BACK, Hx Back Problems Sensory History: Reports: Hx Contacts or Glasses - GLASSES Denies: Hx Hearing Aid Opthamlomology History: Reports: Hx Contacts or Glasses - GLASSES Neurological History: Reports: Hx Headaches Psychiatric History: Reports: Hx Depression - CHRONIC Denies: Hx Panic Disorder - Cancer History Cancer Type, Location and Year: [place] ON NOSE Hx Chemotherapy: No Hx Radiation Therapy: No - Surgical History Surgery Procedure, Year, and Place: 1998 LAPAROSCOPIC CHOLECYSTECTOMY, [facility] [place]. 1998 LAPAROSCOPIC DRAINS FOR BILE PERTIONITIS, [facility] [place]. 2003 URETHROTOMY, [facility] [place]. 2013 CYSTOSCOPY WITH REMOVAL OF BLADDER STONES, [facility] [place]. 1979 HAND SURGERY Hx Anesthesia Reactions: No - Immunization History Date of Tetanus Vaccine: less than 4 yrs Date of Influenza Vaccine: Fall 2016 Hx Pertussis Vaccination: No Immunizations Up to Date: Yes Infectious Disease History: Yes Infectious Disease History: Denies: Traveled Outside the [place] in Last 30 Days - Family History Known Family History: Positive: Hypertension, Diabetes - brother/mother, Other - CHF-mother, colon cancer-father Negative: Cardiac Disease - Social History Occupation: Unemployed Lives: Alone Alcohol Use: None Substance Use Type: Reports: None Hx Tobacco Use: Yes Smoking Status (MU): Former Smoker Type: Cigarettes Review of Systems Positive: Fever, Chills. Negative: Fatigue, Skin Diaphoresis Negative: Photophobia, Blurred Vision, Diplopia Negative: Sore Throat, Ear Ache Negative: Palpitations, Chest Pain Positive: Cough. Negative: Shortness Of Breath Negative: Abdominal Pain, Vomiting, Diarrhea, Nausea Positive: see HPI, burning, dysuria, frequency, urgency. Negative: flank pain, incontinence Negative: Arthralgia Skin: Negative Neurological: Negative All Other Systems Reviewed And Are Negative: Yes Physical Exam Triage Information Reviewed: Yes Vital Signs On Initial Exam: Initial Vitals Temp Pulse Resp BP Pulse Ox 100.2 F 99 18 131/93 99 05/13/18 10:35 05/13/18 10:35 05/13/18 10:35 05/13/18 10:35 05/13/18 10:35 Vital Signs Reviewed: Yes Appearance: Positive: Well-Appearing, Well-Nourished Skin: Positive: Warm, Other - Bilateral lower extremity stasis dermatitis Head/Face: Positive: Normal Head/Face Inspection Eyes: Positive: EOMI, WALTER, Conjunctiva Clear Neck: Positive: Supple, No Lymphadenopathy Respiratory/Lung Sounds: Positive: Clear to Auscultation, Breath Sounds Present Cardiovascular: Positive: RRR, Pulses are Symmetrical in both Upper and Lower Extremities Musculoskeletal: Positive: Normal, Strength/ROM Intact Neurological: Positive: Speech Normal Psychiatric: Positive: Normal, Affect/Mood Appropriate AVPU Assessment: Alert Diagnostics - Vital Signs Vital Signs Temp Pulse Resp BP Pulse Ox 05/13/18 10:47 98 160/91 100 05/13/18 10:46 101 99 05/13/18 10:35 100.2 F 99 18 131/93 99 - Laboratory Result Diagrams: 05/13/18 12:37 05/13/18 12:37 Lab Statement: Any lab studies that have been ordered have been reviewed, and results considered in the medical decision making process. GIGU Course/Dx - Course Course Of Treatment: During the course of treatment, the patient is evaluated for recurrent chills over the course of approximately 45 minutes after stepping outside without a coat. He states he does not own a code and has never had this before. He does endorse a cough and congestion, denies any chest discomfort. On arrival his temperature is 100.3, he is nontoxic appearing. On recheck approximately one hour after arrival his temperature increases to 102.5. Continues to endorse frequency and urgency with urination and has a history of recurrent cystitis. Denies any current cellulitis, however this is also recurrent. He is not currently taking any medications. He denies any sweats. He denies any flank pain bilaterally. He is an insulin-dependent diabetic and has been taking his medications as prescribed. UA obtained which shows 3+ WBCs, 3+ RBC, 2+ bacteria . Chest x-ray obtained which is negative for any acute cardiopulmonary disease. Labs obtained which show an elevated 17.3 WBC. Discussed with patient this is likely complicated UTI with immunocompromisation. However, patient prefers not to stay and be admitted to the hospital at this time. I have discussed treatment options with the patient and agreed to be discharged home with ciprofloxacin twice a day 7 days. He is given 2 g IV Rocephin in the ED prior to discharge. Also blood cultures are obtained just prior to this before discharge to assess for any septicemia. On recheck, temperature just prior to ibuprofen dispensed is 99.8. He is not tachycardic and continues to appear well. I do not believe the patient is septic at this time and believe he is safe for discharge, however he is given strict return precautions and is agreeable to return if he develops any fevers, sweats, chills or worsening pain. - Diagnoses Differential Diagnoses - Male: Ureteral Calculi, Urinary Tract Infection, Other - BPH, complicated UTI, stricture Provider Diagnoses: Complicated UTI (urinary tract infection) Discharge - Sign-Out/Discharge Documenting (check all that apply): Patient Departure - Discharge Plan Condition: Stable Disposition: HOME Prescriptions: Ciprofloxacin TAB* [Cipro 500 MG TAB*] 500 mg PO BID #14 tab Referrals: Haroon Pandey NP [Primary Care Provider] - - Billing Disposition and Condition Condition: STABLE Disposition: Home
[2018-05-13 12:59] LABS: EGFR Non-African American 83.1 (>60)
[2018-05-13 13:27] LABS: Urine Appearance Turbid; Urine Blood 1+ (Negative); Urine Color Yellow; Urine Ketones Negative (Negative); Urine Protein Negative (Negative); Urine Red Blood Cell 2+(6-10/hpf) (Absent); Urine Specific Gravity 1.019 (1.010-1.030); Urine Urobilinogen Negative (Negative); Urine White Blood Cell 3+(>20/hpf) (Absent)
[2018-05-13] MEDS ORDERED: Acetaminophen ADULT LIQ* 650 MG/20.3 ML UDC PO ONE (14:08)
[2018-05-13] MEDS ORDERED: cefTRIAXone(*) 2 GM in NS 0.9% 100 ML* 100 ML IVPB ONE (14:27)
[2018-05-13] MEDS ORDERED: Ibuprofen TAB* 600 MG PO ONE (14:27)
[2018-05-13 15:22] VITALS: BP 107/74
--- NOTE | 2018-05-16 08:46 | ED ---
Progress - Progress Note Progress Note: Patient's final urine culture reveals greater than 100,000 Escherichia coli. Patient was given a course of ceftriaxone prior to discharge here on 05/13. That antibiotic appears to be effective. He was also discharged home with ciprofloxacin PO which also see appears to be effective. He did return to the ED 2 days after his initial visit was he was still having symptoms however he reports he was feeling better in other regards. A CT scan revealed no pyelonephritis and no stone/obstruction of the tract. Prostate was enlarged but again not obstructing. Blood cultures were taken and found to be negative. Patient was provided with discharge instructions as well as danger signs and symptoms of when to return to the ED. No further action at this time. Course/Dx - Course Course Of Treatment: During the course of treatment, the patient is evaluated for recurrent chills over the course of approximately 45 minutes after stepping outside without a coat. He states he does not own a code and has never had this before. He does endorse a cough and congestion, denies any chest discomfort. On arrival his temperature is 100.3, he is nontoxic appearing. On recheck approximately one hour after arrival his temperature increases to 102.5. Continues to endorse frequency and urgency with urination and has a history of recurrent cystitis. Denies any current cellulitis, however this is also recurrent. He is not currently taking any medications. He denies any sweats. He denies any flank pain bilaterally. He is an insulin-dependent diabetic and has been taking his medications as prescribed. UA obtained which shows 3+ WBCs, 3+ RBC, 2+ bacteria . Chest x-ray obtained which is negative for any acute cardiopulmonary disease. Labs obtained which show an elevated 17.3 WBC. Discussed with patient this is likely complicated UTI with immunocompromisation. However, patient prefers not to stay and be admitted to the hospital at this time. I have discussed treatment options with the patient and agreed to be discharged home with ciprofloxacin twice a day 7 days. He is given 2 g IV Rocephin in the ED prior to discharge. Also blood cultures are obtained just prior to this before discharge to assess for any septicemia. On recheck, temperature just prior to ibuprofen dispensed is 99.8. He is not tachycardic and continues to appear well. I do not believe the patient is septic at this time and believe he is safe for discharge, however he is given strict return precautions and is agreeable to return if he develops any fevers, sweats, chills or worsening pain. - Diagnoses Provider Diagnoses: Complicated UTI (urinary tract infection) Discharge - Sign-Out/Discharge Documenting (check all that apply): Post-Discharge Follow Up - Discharge Plan Condition: Stable Disposition: HOME Prescriptions: Ciprofloxacin TAB* [Cipro 500 MG TAB*] 500 mg PO BID #14 tab Patient Education Materials: Urinary Tract Infection in Men (ED) Referrals: Haroon Pandey GUEST RELATIONS MANAGER [Primary Care Provider] - Additional Instructions: ciprofloxacin twice daily 7 days If he develop any worsening symptoms, fevers, sweats, chills, specifically fevers not improved with Tylenol or ibuprofen, he need to return to the ED immediately If you have any difficulty with urination, continued to have darkened urine, return to the ED Drink plenty of water - Billing Disposition and Condition Condition: STABLE Disposition: Home
== END 2018-05-13 15:23 | disposition home or self-care (01) ==
LOC: ED 10:26
DX: N39.0 Urinary tract infection, site not specified (principal); B96.20 Unspecified Escherichia coli [E. coli] as the cause of diseases classified elsewhere; E10.9 Type 1 diabetes mellitus without complications; Z79.4 Long term (current) use of insulin; R05 Cough
CPT/HCPCS: 36415; 71046; 80053; 81003; 81015; 83605; 85025; 87040; 87077; 87086; 87186; 96360; 99282; A9270-GY; J0696

== ENCOUNTER 2018-07-25 01:00 | Observation (INO) | payer MEDICARE ==
[2018-07-25] MEDS ORDERED: Aspirin 81 mg CHEW TAB* 81 MG TAB.CHEW PO ONE (01:03)
[2018-07-25 01:25] LABS: White Blood Count 4.9 10^3/ul (3.5-10.8)
--- NOTE | 2018-07-25 01:25 | ED ---
HPI Cardiac - HPI Summary HPI Summary: Pt is a 68 y/o male who presents to the ED c/o SOB. He was woken up from sleeping tonight with a sensation of not being able to catch his breath. He was wearing a bipap mask. Pt felt panicky, and is unsure if the panicking is causing the SOB or vice versa. He states that he doesnt think he is actually SOB, rather just feels like it. Pt also c/o chest heaviness, but denies any cough, dizziness, fever, diaphoresis, shakiness, or leg pain. He notes that 2 days ago he had a similar episode while taking a nap in a chair, but the sensation went away. Pt denies SOB with normal activities. He does not check his blood glucose. PMHx sleep apnea, palpitations, HTN, DM. He denies taking blood thinners. Pt denies any alcohol, drug, or caffeine use. FHx CHF. 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 Negative : Dizziness, Fever, Diaphoresis, Cough, Calf Pain/Swelling - Allergy/Home Medications Allergies/Adverse Reactions: Allergies Allergy/AdvReac Type Severity Reaction Status Date / Time No Known Allergies Allergy Verified 07/25/18 01:21 PMH/Surg Hx/FS Hx/Imm Hx Endocrine/Hematology History: Reports: Hx Diabetes - TYPE 2 Cardiovascular History: Reports: Hx Hypertension - ON MEDS, Other Cardiovascular Problems/Disorders - irregular heart rate Denies: Hx Congestive Heart Failure, Hx Pacemaker/ICD Respiratory History: Reports: Hx Sleep Apnea, Other Respiratory Problems/ Disorders - sleep apnea GI History: Reports: Hx Irritable Bowel, Other GI Disorders - IBS History: Reports: Other Problems/Disorders - ENLARGE PROSTATE Musculoskeletal History: Reports: Hx Arthritis - BILATERAL FINGERS, HIPS, BACK, Hx Back Problems Sensory History: Reports: Hx Contacts or Glasses - GLASSES Denies: Hx Hearing Aid Opthamlomology History: Reports: Hx Contacts or Glasses - GLASSES Neurological History: Reports: Hx Headaches Psychiatric History: Reports: Hx Depression - CHRONIC Denies: Hx Panic Disorder - Cancer History Cancer Type, Location and Year: [facility] ON NOSE Hx Chemotherapy: No Hx Radiation Therapy: No - Surgical History Surgery Procedure, Year, and Place: 1998 LAPAROSCOPIC CHOLECYSTECTOMY, [facility]. 1998 LAPAROSCOPIC DRAINS FOR BILE PERTIONITIS, [facility]. 2003 URETHROTOMY, [facility]. 2013 CYSTOSCOPY WITH REMOVAL OF BLADDER STONES, OFFICE. 1979 HAND SURGERY Hx Anesthesia Reactions: No - Immunization History Date of Tetanus Vaccine: less than 4 yrs Date of Influenza Vaccine: Fall 2016 Infectious Disease History: No Infectious Disease History: Denies: Traveled Outside the [place] in Last 30 Days - Family History Known Family History: Positive: Cardiac Disease - CHF, Hypertension, Diabetes - brother/mother, Other - colon cancer-father - Social History Alcohol Use: None Hx Substance Use: No Substance Use Type: Reports: None Hx Tobacco Use: Yes Smoking Status (MU): Former Smoker Type: Cigarettes Review of Systems Negative: Fever, Skin Diaphoresis, Other - shakiness Positive: Chest Pain - heaviness Positive: Shortness Of Breath. Negative: Cough Negative: Myalgia - leg Neurological: Other - NEGATIVE: dizziness Positive: Anxious All Other Systems Reviewed And Are Negative: Yes Physical Exam - Summary Physical Exam Summary: Appearance: Well appearing, no pain distress Skin: warm, dry, reflects adequate perfusion, chronic dermatitis of BLE Head/face: normal Eyes: EOMI, WALTER ENT: mucous membranes moist Neck: supple, non-tender Respiratory: CTA, breath sounds present Cardiovascular: RRR, pulses symmetrical, trace LE edema Abdomen: non-tender, soft Bowel Sounds: present Musculoskeletal: normal, strength/ROM intact Neuro: normal, sensory motor intact, A&Ox3 Triage Information Reviewed: Yes Vital Signs On Initial Exam: Initial Vitals Temp Pulse Resp BP Pulse Ox 98.1 F 89 20 143/63 98 07/25/18 01:17 07/25/18 01:17 07/25/18 01:17 07/25/18 01:17 07/25/18 01:17 Vital Signs Reviewed: Yes Diagnostics - Vital Signs Vital Signs Temp Pulse Resp BP Pulse Ox 07/25/18 01:17 98.1 F 89 20 143/63 98 - Laboratory Result Diagrams: 07/25/18 01:14 07/25/18 01:14 Lab Statement: Any lab studies that have been ordered have been reviewed, and results considered in the medical decision making process. - Radiology CXR Radiology Interpretation Completed By: ED Physician Summary of Radiographic Findings: No acute findings. Pending official radiology report. - EKG 01:06 Cardiac Rate: NL - 72 bpm EKG Rhythm: Sinus Rhythm ST Segment: Normal Summary of EKG Findings: Nl axis, nl intervals Re-Evaluation - Re-Evaluation First Eval Re-Evaluation Time: 02:40 Change: Improved Comment: NTG improved his pain. Disposition - Course Course Of Treatment: Nurse's notes reviewed. Patient with multiple comorbidities presenting with chest pressure and some shortness of breath. He felt better with nitroglycerin. Blood pressure is now 109 systolic. Initial troponin, EKG have been negative. Discussed case with hospitalist will admit for further. Heart score is 5. - Differential Dx - Cardiopulmonary Differential Diagnoses - Cardiopulmonary: Acute Coronary, Atrial Fibrillation, Atrial Flutter, CAD, Cardiomyopathy, CHF, Chest Wall Pain, GI Disease, Hypoxia, Lower Resp Infection, Panic Disorder, Pulmonary Edema, Pulmonary Embolism - Diagnoses Provider Diagnoses: Acute coronary syndrome, Chest pain - Physician Notifications Discussed Care Of Patient With: Candida Valadez Time Discussed With Above Provider: 02:44 Instructed by Provider To: Admit As Inpatient Discharge - Sign-Out/Discharge Documenting (check all that apply): Patient Departure - Admit - Discharge Plan Condition: Stable Disposition: ADMITTED TO [facility] Referrals: Haroon Pandey, OPERATIONS ADMINISTRATIVE ASSISTANT [Primary Care Provider] - - Billing Disposition and Condition Condition: STABLE Disposition: Admitted to [facility] - Attestation Statements Document Initiated by Ryane: Yes Documenting Scribe: Kinza Nettles Provider For Whom Ryane is Documenting (Include Credential): Corey Rhodes MD Scribe Attestation: Kinza Abarca, scribed for Corey Rhodes MD on 07/25/18 at 0336. Scribe Documentation Reviewed: Yes Provider Attestation: The documentation as recorded by the Kinza redmond accurately reflects the service I personally performed and the decisions made by me, Corey Rhodes MD Status of Scribe Document: Viewed
[2018-07-25 01:26] LABS: ABS Basophils 0 10^3/ul (0-0.2); ABS Eosinophils 0.1 10^3/ul (0-0.6); ABS Lymphocytes 1.4 10^3/ul (1.0-4.8); ABS Monocytes 0.4 10^3/ul (0-0.8); ABS Nucleated RBC 0 10^3/ul; Eosinophil % 2.1 %; Hematocrit 41 % (42-52); Hemoglobin 13.5 g/dl (14.0-18.0); INR 1.05 (0.77-1.02); Lymphocyte % 29.5 %; Mean Corpuscular HGB Conc 33 g/dl (31-36); Mean Corpuscular Hemoglobin 29 pg (27-31); Mean Corpuscular Volume 88 fL (80-94); Mean Platelet Volume 9.4 fL (7.4-10.4); Nucleated Red Blood Cells % 0; Platelet Count 75 10^3/ul (150-450); Red Cell Distribution Width 14 % (10.5-15)
[2018-07-25] MEDS ORDERED: Nitro 2% OINT* (Nitroglycerin) 1 INCH/PAK PAK TOPICAL ONE (01:36)
[2018-07-25] MEDS ORDERED: Nitroglycerin TAB 0.4 MG* 0.4 MG TAB SL ONE (01:36)
[2018-07-25 01:39] LABS: Albumin/Globulin Ratio 1.4 (1-3); Calcium 9.3 mg/dL (8.6-10.3); EGFR Non-African American 97.5 (>60); Globulin 2.8 g/dL (2-4); Potassium 4.2 mmol/L (3.5-5.0); Total Bilirubin 0.6 mg/dL (0.2-1.0); Total Protein 6.8 g/dL (6.4-8.9)
--- OUTSIDE RECORDS SUMMARY | 2018-07-25 01:51 | XMS REPORT | Continuity of Care Document ---
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 PayID: [id number] KT Mcfarland [id number] Effective: 2009 Policy Number: [id number] [employer] THALIA Yessenia Xiomara Expires: 2011 Group Name: Cody Blue [address] PayID: [id number] KT Mcfarland [id number] Effective: 2011 Policy Number: [id number] Frandy VÁSQUEZ Yessenia Gonzalesshekhar Expires: 2014 Group Name: [employer] of [place] [address] PayID: [id number] KT Mcfarland [id number] Effective: 2015 Policy Number: Medicare - Bswny Amna Gill Xiomara [id number] [facility] PayID: [id number] [address] [place] [address] Policy Number: [id number] [facility] Amna Whitney PayID: [id number] [address] [place] [address] Advance Directives Description No Information Available Problems [...] Form Strength Qnty SIG Indications Ordering Provider BD Uf II Short 07/12 Active 60uni Use Two Shawnti R. 1cc 31G ts Times A Day Dannie, For Insulin LE[employer]ING [employer]ING MACHINE OPERATOR-C Injection Cipro 06/01 Active Tablets 500mg 60tab 1 tab by Ubaldo /2017 s mouth twice Heetderks, a day Ammonium Lactate 04/14 Active Lotion 12% 226gm apply to L03.116 heels bid Pereira, for dry M.D. cracked skin BD Insulin 11/22 Active Misc 27G X 60uni Insulin Shawnti R. Syringe /2017 58" 1 ML ts injection Dannie, Microfine/U-100/ bid LE[employer]ING AND GLUING MACHINE OPERATOR-C 1ML/27G X 58" Metoprolol 08/28 Active Tablets 25mg 30tab 1 by mouth R00.2 Shawnti R. Succinate ER /2017 ER 24HR s every day Storm, [employer] MACHINE OPERATOR-C Bipap Supplies 08/28 Active mask, G47.30 Shawnti R. /2018 tubing, Storm, strap and [employer]ING [employer]ING MACHINE OPERATOR-C head gear for Bi Pap..Dx Sleep Apnea Bupropion HCL ER 11/25 Active Tablets 300mg 30tab Take One F32.8 Abad (XL) ER 24HR s Tablet By Pereira, Mouth Every M.D. Morning Vitamin D 10/08 Active Capsules 26262Dymv 14cap take 1 Shawnti R. (Ergocalciferol) /2016 s capsule by Storm, mouth once LE[employer]ING [employer]ING MACHINE OPERATOR-C weekly Magnesium Oxide 12/13 Active Tablets 400(241.3 60tab Take One Shawnti R. /2015 mg) mg s Tablet By Storm, Mouth Twice [employer]UING MACHINE OPERATOR-C A Day Insulin 01/07 Active Misc 30G X 75uni use to E11.65 Shawnti R. Syringe/U-100/1M /11/08" 1 ts administer Storm, L/30G X 11/08" ML insulin bid LE[employer] LAYING AND GLUING MACHINE OPERATOR-C Levemir 01/07 Active Solution 100Unit/M 60uni inject up to E11.65 Shawnti R. /2010 L ts 100 units aDnnie, two times a [employer]ING MACHINE OPERATOR-C day into the fatty tissue to keep morning blood sugars under 150 Libra Contour 08/31 Active Test 1vial use daily Joelwnti R. /2010 Strips and as Dannie, needed to LE[employer]ING MACHINE OPERATOR-C check blood sugars Lancets 08/31 Active Ultra 50uni use daily Shawnti R. /2010 Fine ts and as Storm, needed to LE[employer]ING MACHINE OPERATOR-C test blood sugars Glucophage 07/05 Active Tablets 850mg 90tab take one Ubaldo s tablet by Felicinaoetmars, mouth three MD times a day for diabetes Hyoscyamine Active Tablets 0.375mg Unknown Sulfate ER /0000 ER 12HR Tamsulosin HCL Active Capsules 0.4mg Unknown /0000 Dutasteride Active Capsules Unknown /0000 Lisinopril Active Tablets 5mg 1 by mouth Unknown /0000 every day Iron Active Tablets 325(65Fe) 1 by mouth Unknown /0000 mg every day for iron deficiency Naproxen Active Tablets 250mg take 1 to 2 Unknown /0000 tablets by mouth prn Amoxicillin 04/14 Hx Capsules 500mg 30cap 1 by mouth L03.116 s three times Kelli, - a day x 10 M.D. 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 s capsule by Storm, - mouth every [employer]UING MACHINE OPERATOR-C 01/29 8 hours 10 Silver 01/09 Hx Cream 1% 400gm apply L03.115 Shawnti R. Sulfadiazine liberally to Dannie, - open wound [employer]UING MACHINE OPERATOR-C 01/29 on twice daily Doxycycline 01/06 Hx Capsules 100mg 20cap 1 cap by S80.921A Renzo Hyclate s mouth twice Cortez - daily for 10 III, LE[employer] AND [employer]ING MACHINE OPERATOR-C 01/12 days infection Doxycycline 08/14 Hx Capsules 100mg 20cap 1 by mouth Shawnti R. Monohydrate s twice a day Dannie, - LE[employer]ING MACHINE OPERATOR-C 10/18 Metoprolol 08/14 Hx Tablets 25mg 60tab take one R00.2 Shawnti R. Tartrate s half tablet Dannie, - by mouth LE[employer]UING MACHINE OPERATOR-C 08/28 twice a day for heart and blood pressure Doxycycline 12/21 Hx Capsules 100mg 20cap 1 by mouth S91.332A Ubaldo Hyclate s twice a day Diane Loera MD 08/14 Tramadol HCL 08/15 Hx Tablets 50mg 60tab take one M75.51 Shawnti R. s tablet by Danine, - mouth four [employer]ING MACHINE OPERATOR-C 08/14 times a day as needed for pain; maximum daily dose=4 Bupropion HCL ER 04/25 Hx Tablets 150mg 90tab Take One F32.8 Shawnti R. (XL) ER 24HR s Tablet By Dannie, - Mouth Every LE[employer]UING MACHINE OPERATOR-C 11/25 Morning Doxycycline 01/24 Hx Capsules 100mg 20cap 1 by mouth L03.116 Shawnti R. Hyclate s twice a day Dannie, - for 10 days LE[employer] L[employer]ING [employer] GLUING MACHINE OPERATOR-C 12/21 Bupropion HCL ER 01/24 Hx Tablets 300mg 30tab 1 by mouth F32.8 Shawnti R. (XL) ER 24HR s every Storm, - morning LE[employer] LAYING AND GLUING MACHINE OPERATOR-C 04/25 Zostavax 12/20 Hx Solution [id number]/ [facility] Rec 0.65ML s 0.65ml into Storm, - subcutaneous LE[employer]ING [employer]UING MACHINE OPERATOR-C 03/02 tissue once Bupropion HCL ER 12/20 Hx Tablets 150mg 30tab take 1 F32.8 Haroon RChitra (XL) ER 24HR s tablet by Storm, - mouth every LE[employer]ING [employer] GLUING MACHINE OPERATOR-C 01/24 Doxycycline 12/13 Hx Capsules 100mg 20cap 1 po bid for A69.20 Shawnti R. Hycl s 10 days Storm, - LE[employer]UING MACHINE OPERATOR-C 12/23 Ergocalciferol 12/13 Hx Capsules 68135Vesb 14cap 1 by mouth E55.9 Joelwnti R. s weekly Storm, - LEAD LAYING AND GLUING MACHINE OPERATOR-C 01/12 Doxycycline 04/28 Hx Tablets 100mg 14tab 1 by mouth R23.9 Haroon Ricardo Hyclate /2014 DR julien twice a day Storm, - for 7 days LE[employer] L[employer]ING AND GLUING MACHINE OPERATOR-C 12/13 Urea 04/28 Hx Cream 40% 198.4 apply twice R23.9 Haroon RChitra 00gm daily to Storm, - skin on foot LE[employer] L[employer]ING [employer] GLUING MACHINE OPERATOR-C 03/02 Doxycycline 09/03 Hx Tablets 100mg 20tab 1 by mouth 682.[address] julien twice a day Storm, - for 10 days LEAD L[employer]ING AND GLUING MACHINE OPERATOR-C 12/25 Doxycycline 05/26 Hx Tablets 100mg 20tab 1 by mouth 682.[address] julien twice a day Storm, - for 10 days LEAD L[employer]ING AND GLUING MACHINE OPERATOR-C 06/05 Cyclobenzaprine 12/23 Hx Tablets 5mg 30tab 1-2 by mouth 724.2 Anuradha HCL s three times Stoney, - a day for LE[employer] AND GLUING MACHINE OPERATOR-C 03/02 muscle spasm, may cause drowsiness Clindamycin HCL 10/26 Hx Capsules 300mg 40cap one by mouth Anuradha /2013 s four times a Stoney, - day x 10 LEAD LAYING AND GLUING MACHINE OPERATOR-C 09/03 days for /2014 cellulitis Lymphedema Pump 09/26 Hx wear on legs 782.3 Shawnti R. /2013 qhs for Storm, - edema and LE[employer] GLUING MACHINE OPERATOR-C 03/02 recurrent /2016 cellulitis Tamiflu 09/20 Hx Capsules 75mg 10cap take one 488.82 Leonie s capsule po Carlos Bueno, - bid for 5 M.D. 09/25 days. take with some food Ciprofloxacin 09/20 Hx Tablets 500mg 14tab 1 po bid 682.9 Leonie HCL s Carlos Bueno, - M.D. 09/26 Bactrim DS 06/09 Hx Tablets 800-160mg 20tab 1 tablet bid s x 10 days Stoney, - LE[employer]ING AND GLUING MACHINE OPERATOR-C 06/25 Clindamycin HCL 12/20 Hx Capsules 300mg 30cap 1 po qid for 682.9 Anuradha s 10 days for Stoney, - Infection LEAD LAYING AND GLUING MACHINE OPERATOR-C 06/09 BD Uf II Short 12/11 Hx 60uni use to Shawnti R. 1cc ts administer Storm, - insulin two LE[employer] LAYING AND GLUING MACHINE OPERATOR-C 11/22 times a day /2017 Bactrim DS 11/30 Hx Tablets 800-160mg 20tab 1 po bid for 682.9 Shawnti R. s infection Storm, - LEAD LAYING AND GLUING MACHINE OPERATOR-C 12/10 Sertraline HCL 07/13 Hx Tablets 100mg 60tab Take Two s Tablets By Freddy Mar, - Mouth Every M.D. Cephalexin 06/25 Hx Tablets 500mg 30tab 1 po tid for 682.9 Shawnti R. /2011 s 10 days for Storm, - infection LEAD LAYING AND GLUING MACHINE OPERATOR-C 07/05 BD Uf II Short 03/08 Hx 60uni Use To Shawnti R. 1cc G ts Administer Storm, - Insulin Two LEAD LAYING AND GLUING MACHINE OPERATOR-C 03/02 Times A Day Silvadene 05/09 Hx Cream 1% 1tub use as 707.15 Leonie directed to Carlos Bueno, - be applied M.D. 08/14 to the wound on the left heel Sulfamethoxazole 04/20 Hx Tablets 800-160mg 20tab take 1 883.1 Anuradha /Trimethoprim s tablet bid Stoney, - for 10 days LEAD LAYING AND GLUING MACHINE OPERATOR-C 06/21 Clindamycin HCL 10/01 Hx Capsules 300mg 30cap 1 po q8hr 682.6 Shawnti R. /2010 s for infected Storm, - cat bite LEAD LAYING AND GLUING MACHINE OPERATOR-C 10/11 Doxycycline 10/[address] 100mg 20cap 1 po bid for 682.6 Shawnti R. Hyclate /2010 Part s 10 days for Storm, - infected cat LEAD LAYING AND GLUING MACHINE OPERATOR-C 10/11 bite /2010 [place] 09/09 Hx Levmir 1Mont use daily Shawnti R. /2010 h with Levmir Dannie, - flex pen LE[employer] LAYING AND GLUING MACHINE OPERATOR-C 03/02 Levemir Flexpen 08/31 Hx Solution 100Unit/M 1mont inject 50 to 250.02 Shawnti R. /2010 L h 100 units Dannie, - into fatty LE[employer] LAYING AND GLUING MACHINE OPERATOR-C 01/07 tissue for diabetes Cephalexin 12/10 Hx Capsules 500mg 30cap 1 tid x 10 682.6 Abad s Kelli, - M.D. 01/21 Cortisporin 02/21 Hx Solution 1% Otic 1Bott 3 drops left 380.22 Shawnti R. /2008 le ear 4 times Storm, - daily for 5 LEAD LAYING AND GLUING MACHINE OPERATOR-C Keflex 11/18 Hx Capsules 500mg 40cap 1 po qid for Shawnti R. /2008 s 10 days Storm, - LE[employer] L[employer]ING AND GLUING MACHINE OPERATOR-C 03/03 Ceftin 12/22 Hx Tablets 500mg 20tab 1 bid With 682.6 Michelle A. /2007 s Food For 10 Sheyla, - Days F.N.P.C. 07/07 Keflex 10/11 Hx Capsules 500mg 30cap 1 PO tid For 682.6 Shawnti R. /2007 s 10 Days For Storm, - Infection LEAD LAYING AND GLUING MACHINE OPERATOR-C 12/23 Januvia 08/20 Hx Tablets 100mg 90tab 1 po qd Shawnti R. /2007 s Storm, - LEAD LAYING AND GLUING MACHINE OPERATOR-C 05/13 Keflex 08/08 Hx Capsules 500mg 30cap 1 tid X 10 Abad /2008 s Diane Orozco M.D. 08/20 Januvia 06/29 Hx Tablets 50mg 30tab 1 qd Eloy s Diane Chaves M.D. 08/20 Lisinopril 06/29 Hx Tablets 10mg 30tab Take One Shawnti RChitra s Tablet By Storm, - Mouth Every LE[employer] LAYING AND GLUING MACHINE OPERATOR-C Levaquin 03/04 Hx Tablets 500mg 10tab one qd x 10 682.6 Michelle A. /2005 s days Diane Carrion F.N.P.CChitra 05/22 Levaquin 01/11 Hx Tablets 500mg 7tabs one tablet 681.11 Praesh Ashraf /2005 daily for 7 Edna Cortez [...] Tab Eloy 08/19/2004 bid X 7 Lidia Chaves M.D. Amoxicillin 02/25/2004 - Hx Capsules 500mg 28caps 2 po bid x Whit 05/28/2004 7 days Freddy Mar M.D. Cortisporin Otic 02/25/2004 - Hx Solution 5mg;76424 1Bottle 4 drops Whit 05/28/2004 U;10mg/ML affected P. Blegen, ear qid M.DChitra for 5-7 days Tylenol W/ Codeine 02/25/2004 - Hx Tablets 300mg;30 15tabs 1-2 po qhs Whit #3 08/20/2007 mg prn pain P. Carlos MarDChitra Keflex 01/12/2004 - Hx Tablets 500mg 20tabs one po bid Eloy 01/11/2006 for 10 lidia ChavesDChitra Bentyl 08/27/2003 - Hx Tablets 20mg 100tabs 1 up to Anuradha 04/30/2015 qid prn TEX Lua Anusol HC 12/18/2002 - Hx 30units 1 [...] two po qhs Shawnti R. 07/13/2012 Storm, LE[employer] L[employer]ING AND [employer]UING MACHINE OPERATOR-C Terazosin 07/31/2001 - Hx Capsules 5mg 90caps one qd Eloy 08/27/2003 Edna Chaves Glucophage 07/31/2001 - Hx Tablets 500mg 270tabs 0NE tid Eloy 07/05/2004 Edna Chaves Glipizide 07/31/2001 - Hx 5mg 360units 2 po bid Shawnti R. 02/13/2012 for Storm, diabetes LE[employer] LAYING AND GLUING MACHINE OPERATOR-C Medications Administered in Office Medication Date Status Form Strength Qnty SIG Indications Ordering Provider George Administered Injection Whit Hayes (Ceftriaxone) 013 Blegen, Per 250MG M.D. Immunizations CPT Code Status Date Vaccine Lot # [id number] Given 02/24/2018 Influenza Virus Vaccine, Quadrivalent, 3 Yr > Quad, Preserv Free 73413 Given 01/29/2018 Pneumovax 23 (PPSV23) 65+ years or high risk 2 to [id number] 64 year old 49261 Given 02/23/2017 Influenza Vaccine High Dose PF [id number] 21598 Given 12/21/2016 Tdap (Adacel) [id number] 05589 Given 02/22/2016 Influenza Virus Vaccine, Quadrivalent, 3 Yr > [id number] Quad, Preserv Free 16098 Given 01/29/2016 Zoster Vaccine 48039 Given 01/25/2016 Zoster Vaccine 86983 Given 12/21/2015 Prevnar-13 Pneumococcal Conjugate Vaccine [id number] 68720 Given 05/26/2014 Influenza Virus Vaccine, Quadrivalent, 3 Yr > [id number] Quad, Preserv Free 24162 Given 2013 Influenza Vaccine-Preservative Free 3 Yrs And [id number] Above 31577 Given 05/09/2011 Influenza Vaccine-Preservative Free 3 Yrs And [id number] Above 71438 Given 06/01/2010 Tdap (Adacel) [id number] 65055 Given 06/01/2010 Influenza Vaccine-Preservative Free 3 Yrs And [id number] Above 64531 Given 01/12/2004 DT (Adult) 61936 Given 01/30/2003 DT (Adult) 92910 Given 01/30/2003 DT (Adult) 51150 Given 04/08/1996 DT (Adult) 01322 Given 12/16/1993 Hepatitus B Vaccine (Per 0.5 ML) 46524 Given 07/20/1993 Hepatitus B Vaccine (Per 0.5 ML) 41442 Given 06/22/1993 Hepatitus B Vaccine (Per 0.5 ML) Vital Signs Date Vital Result Comment 07/12/2018 4:53pm Weight 303.00 lb Weight 137.441 kg BP Systolic 120 mmHg BP Diastolic 70 mmHg Heart Rate 78 /min Body Temperature 99.6 F Respiratory Rate 16 /min 06/01/2018 3:08pm Weight 295.00 lb Weight 133.812 kg BP Systolic 124 mmHg BP Diastolic 78 mmHg Heart Rate 74 /min Body Temperature 98.4 F Respiratory Rate 16 /min O2 % BldC Oximetry 98 % 04/14/2018 11:05am Weight 297.00 lb Weight 134.719 [...] Test Result H/L Range Note Laboratory test 07/12/2018 [facility] TSH (Thyroid < pending> finding [phone] Stim Horm) T3 Total <pending> Free T4 (Free Thyroxine) <pending> PSA Diagnostic <pending> Urine DIP 06/01/2018 In House Lab Leukocytes + Neg (607)- - Urine Nitrites NEG Neg Urobilinogen NORM Norm Total Protein, Urine NEG Neg Urine pH 6 5-6 Urine Blood NEG Neg Specific Halma 1.010 1.01-1.02 Urine Ketones NEG Neg Urine Bilirubin NEG Neg Urine Glucose NORM Norm Urine Culture And 05/16/2018 [facility] Urine Culture SEE RESULT 1 Sensitivities [phone] BELOW Urinalysis Profile 05/16/2018 [facility] Urine Color Yellow [phone] Urine Appearance Clear Urine Specific Halma 1.006 Low 1.010-1.030 Urine pH 5.0 N 5-9 Urine Urobilinogen Negative Negative Urine Ketones Negative Negative Urine Protein Negative Negative Urine Leukocytes 2+ Abnormal Negative Urine Blood 1+ Abnormal Negative Urine Nitrite Negative Negative Urine Bilirubin Negative Negative Urine Glucose Negative Negative Urine White Blood Cell 3+(>20/hpf) Abnormal Absent Urine Red Blood Cell Trace(0-2/hpf) Absent Urine Bacteria 1+ Abnormal Absent Urine Squamous Epithelial Cell Present Abnormal Absent Laboratory test 05/16/2018 [facility] Lactic Acid 1.7 mmol/L N 0.5-2.0 2 finding [phone] Comp Metabolic 05/16/2018 [facility] Sodium 138 mmol/ L N 135-145 Panel [phone] Potassium 3.5 mmol/L N 3.5-5.0 Chloride 104 mmol/L N 101-111 Co2 Carbon Dioxide 27 mmol/L N 22-32 Anion Gap 7 mmol/L N 2-11 Glucose 141 mg/dL High 70-100 Blood Urea Nitrogen 14 mg/dL N 6-24 Creatinine 0.90 mg/dL N 0.67-1.17 BUN/Creatinine Ratio 15.6 N 8-20 Calcium 8.8 mg/dL N 8.6-10.3 Total Protein 6.8 g/dL N 6.4-8.9 Albumin 3.7 g/dL N 3.2-5.2 Globulin 3.1 g/dL N 2-4 Albumin/Globulin Ratio 1.2 N 1-3 Total Bilirubin 0.90 mg/dL N 0.2-1.0 Alkaline Phosphatase 40 U/L N 34-104 Alt 33 U/L N 7-52 Ast 21 U/L N 13-39 Egfr Non- 84.2 >60 Egfr 101.8 >60 3 CBC Auto Diff 05/16/2018 [facility] White Blood 7.2 10^3/uL N 3.5-10.8 [phone] Count Red Blood Count 4.54 10^6/uL N 4.00-5.40 Hemoglobin 13.3 g/dL Low 14.0-18.0 Hematocrit 40 % Low 42-52 Mean Corpuscular Volume 87 fL N 80-94 Mean Corpuscular Hemoglobin 29 pg N 27-31 Mean Corpuscular HGB Conc 34 g/dL N 31-36 Red Cell Distribution Width 14 % N 10.5-15 Platelet Count 98 10^3/uL Low 150-450 Mean Platelet Volume 8.7 fL N 7.4-10.4 Abs Neutrophils 5.4 10^3/uL N 1.5-7.7 Abs Lymphocytes 1.1 10^3/uL N 1.0-4.8 Abs Monocytes 0.7 10^3/uL N 0-0.8 Abs Eosinophils 0.1 10^3/uL N 0-0.6 Abs Basophils 0 10^3/uL N 0-0.2 Abs Nucleated RBC 0 10^3/uL Granulocyte % 74.8 % N 38-83 Lymphocyte % 14.7 % Low 25-47 Monocyte % 9.5 % High 0-7 Eosinophil % 0.8 % N 0-6 Basophil % 0.2 % N 0-2 Nucleated Red Blood Cells % 0 Laboratory test 05/16/2018 [facility] C Reactive 48.78 mg/L High <8.01 finding [phone] Protein Laboratory test 05/13/2018 [facility] Lactic Acid 1.6 mmol/L N 0.5-2.0 4 finding [phone] Comp Metabolic 05/13/2018 [facility] Sodium 137 mmol/ L N 135-145 Panel [phone] Potassium 4.3 mmol/L N 3.5-5.0 Chloride 103 mmol/L N 101-111 Co2 Carbon Dioxide 25 mmol/L N 22-32 Anion Gap 9 mmol/L N 2-11 Glucose 76 mg/dL N 70-100 Blood Urea Nitrogen 16 mg/dL N 6-24 Creatinine 0.91 mg/dL N 0.67-1.17 BUN/Creatinine Ratio 17.6 N 8-20 Calcium 9.3 mg/dL N 8.6-10.3 Total Protein 7.6 g/dL N 6.4-8.9 Albumin 4.3 g/dL N 3.2-5.2 Globulin 3.3 g/dL N 2-4 Albumin/Globulin Ratio 1.3 N 1-3 Total Bilirubin 1.60 mg/dL High 0.2-1.0 Alkaline Phosphatase 47 U/L N 34-104 Alt 58 U/L High 7-52 Ast 42 U/L High 13-39 Egfr Non- 83.1 >60 Egfr 100.6 >60 5 Laboratory test 05/13/2018 [facility] Blood Culture SEE RESULT 6 finding [phone] BELOW Urinalysis Profile 05/13/2018 [facility] Urine Color Yellow [phone] Urine Appearance Turbid Urine Specific Halma 1.019 N 1.010-1.030 Urine pH 5.0 N 5-9 Urine Urobilinogen Negative Negative Urine Ketones Negative Negative Urine Protein Negative Negative Urine Leukocytes 3+ Abnormal Negative Urine Blood 1+ Abnormal Negative Urine Nitrite Negative Negative Urine Bilirubin Negative Negative Urine Glucose Negative Negative Urine White Blood Cell 3+(>20/hpf) Abnormal Absent Urine Red Blood Cell 2+(6-10/hpf) Abnormal Absent Urine Bacteria 2+ Abnormal Absent CBC Auto 05/13/2018 [facility] White Blood 17.3 10^3/ uL High 3.5-10.8 Diff [phone] Count Red Blood Count 5.33 10^6/uL N 4.00-5.40 Hemoglobin 15.6 g/dL N 14.0-18.0 Hematocrit 46 % N 42-52 Mean Corpuscular Volume 87 fL N 80-94 Mean Corpuscular Hemoglobin 29 pg N 27-31 Mean Corpuscular HGB Conc 34 g/dL N 31-36 Red Cell Distribution Width 14 % N 10.5-15 Platelet Count 147 10^3/uL Low 150-450 Mean Platelet Volume 8.9 fL N 7.4-10.4 Abs Neutrophils 15.0 10^3/uL High 1.5-7.7 Abs Lymphocytes 0.9 10^3/uL Low 1.0-4.8 Abs Monocytes 1.3 10^3/uL High 0-0.8 Abs Eosinophils 0.1 10^3/uL N 0-0.6 Abs Basophils 0.1 10^3/uL N 0-0.2 Abs Nucleated RBC 0 10^3/uL Granulocyte % 86.5 % High 38-83 Lymphocyte % 5.2 % Low 25-47 Monocyte % 7.6 % High 0-7 Eosinophil % 0.3 % N 0-6 Basophil % 0.4 % N 0-2 Nucleated Red Blood Cells % 0 Urine Culture And 05/13/2018 [facility] Urine Culture SEE RESULT 7 Sensitivities [phone] BELOW Laboratory test 04/02/2018 [facility] PSA Screening 5.478 ng/mL High 0-4.0 8 finding [phone] CBC Auto Diff 01/19/2018 [facility] White Blood 7.0 10^3/uL N 3.5-5 [phone] Count 0.8 Red Blood Count 4.73 10^6/uL N 4.00-5.40 Hemoglobin 13.9 g/dL Low 14.0-18.0 Hematocrit 41 % Low 42-52 Mean Corpuscular Volume 88 fL N 80-94 Mean Corpuscular Hemoglobin 29 pg N 27-31 Mean Corpuscular HGB Conc 34 g/dL N 31-36 Red Cell Distribution Width 14 % N 10.5-15 Platelet Count 102 10^3/uL Low 150-450 Mean Platelet Volume 9.7 um3 N 7.4-10.4 Abs Neutrophils 4.8 10^3/uL N 1.5-7.7 Abs Lymphocytes 1.6 10^3/uL N 1.0-4.8 Abs Monocytes 0.5 10^3/uL N 0-0.8 Abs Eosinophils 0.1 10^3/uL N 0-0.6 Abs Basophils 0 10^3/uL N 0-0.2 Abs Nucleated RBC 0 10^3/uL Granulocyte % 68.7 % N 38-83 Lymphocyte % 22.2 % Low 25-47 Monocyte % 7.5 % High 0-7 Eosinophil % 1.3 % N 0-6 Basophil % 0.3 % N 0-2 Nucleated Red Blood Cells % 0.1 Laboratory test 01/19/2018 [facility] C Reactive 3.34 mg/L N <8.01 9 finding [phone] Protein Erythrocyte Sed Rate 19 mm/Hr N 0-40 10 CBC Auto Diff 01/09/2018 [facility] White Blood 6.5 10^3/uL N 3.5-10.8 [phone] Count Red Blood Count 5.15 10^6/uL N 4.00-5.40 Hemoglobin 15.0 g/dL N 14.0-18.0 Hematocrit 45 % N 42-52 Mean Corpuscular Volume 88 fL N 80-94 Mean Corpuscular Hemoglobin 29 pg N 27-31 Mean Corpuscular HGB Conc 33 g/dL N 31-36 Red Cell Distribution Width 14 % N 10.5-15 Platelet Count 108 10^3/uL Low 150-450 Mean Platelet Volume 9.8 um3 N 7.4-10.4 Abs Neutrophils 4.3 10^3/uL N 1.5-7.7 Abs Lymphocytes 1.7 10^3/uL N 1.0-4.8 Abs Monocytes 0.4 10^3/uL N 0-0.8 Abs Eosinophils 0.1 10^3/uL N 0-0.6 Abs Basophils 0 10^3/uL N 0-0.2 Abs Nucleated RBC 0 10^3/uL Granulocyte % 66.0 % N 38-83 Lymphocyte % 25.6 % N 25-47 Monocyte % 6.9 % N 0-7 Eosinophil % 1.1 % N 0-6 Basophil % 0.4 % N 0-2 Nucleated Red Blood Cells % 0.1 Comp Metabolic Panel 01/09/2018 [facility] Sodium 141 mmol/L N 135-145 [phone] Potassium 4.9 mmol/L N 3.5-5.0 Chloride 106 mmol/L N 101-111 Co2 Carbon Dioxide 26 mmol/L N 22-32 Anion Gap 9 mmol/L N 2-11 Glucose 85 mg/dL N 70-100 Blood Urea Nitrogen 20 mg/dL N 6-24 Creatinine 0.95 mg/dL N 0.67-1.17 BUN/Creatinine Ratio 21.1 High 8-20 Calcium 9.1 mg/dL N 8.6-10.3 Total Protein 7.3 g/dL N 6.4-8.9 Albumin 4.3 g/dL N 3.2-5.2 Globulin 3.0 g/dL N 2-4 Albumin/Globulin Ratio 1.4 N 1-3 Total Bilirubin 1.40 mg/dL High 0.2-1.0 Alkaline Phosphatase 41 U/L N 34-104 Alt 37 U/L N 7-52 Ast 24 U/L N 13-39 Egfr Non- 79.1 >60 Egfr 95.7 >60 11 Lipid Profile 01/09/2018 [facility] Triglycerides 88 mg/dL 12 (Trig/Chol/HDL) [phone] Cholesterol 69 mg/dL 13 HDL Cholesterol 30.6 mg/dL 14 LDL Cholesterol 21 mg/dL 15 Laboratory test 01/09/2018 [facility] TSH (Thyroid 2.81 mcIU/mL N 0.34-5.60 16 finding [phone] Stim Horm) Hemoglobin A1c (Glyco HGB) 5.6 % N 4.0-5.6 17 PSA Diagnostic 17.130 ng/mL High 0-4.000 18 Wound 01/09/2018 [facility] Wound/Misc SEE RESULT 19 Culture/Sensi [phone] Culture-Gram BELOW Stain Laboratory test 12/19/2017 [facility] Surgical SEE RESULT 20, finding [phone] Pathology BELOW 21 Laboratory test 09/25/2017 [facility] PSA Screening 8.122 High 0-4 22 finding [phone] ng/[phone] .0 Laboratory test 07/19/2017 [facility] PSA Screening 8.975 High 0-4 23 finding [phone] ng/mL .0 CBC Auto Diff 02/23/2017 [facility] White Blood 5.2 N 3.5 [phone] Count 10^3/uL -10 .8 Red Blood Count 4.89 10^6/uL N 4.0-5.4 Hemoglobin 14.1 g/dL N 14.0-18.0 Hematocrit 43 % N 42-52 Mean Corpuscular Volume 87 fL N 80-94 Mean Corpuscular Hemoglobin 29 pg N 27-31 Mean Corpuscular HGB Conc 33 g/dL N 31-36 Red Cell Distribution Width 14 % N 10.5-15 Platelet Count 98 10^3/uL Low 150-450 24 Mean Platelet Volume 10 um3 N 7.4-10.4 Abs Neutrophils 2.9 10^3/uL N 1.5-7.7 Abs Lymphocytes 1.7 10^3/uL N 1.0-4.8 Abs Monocytes 0.4 10^3/uL N 0-0.8 Abs Eosinophils 0.1 10^3/uL N 0-0.6 Abs Basophils 0 10^3/uL N 0-0.2 Abs Nucleated RBC 0 10^3/uL N Granulocyte % 57.0 % N 38-83 Lymphocyte % 32.2 % N 25-47 Monocyte % 8.5 % N 1-9 Eosinophil % 1.8 % N 0-6 Basophil % 0.5 % N 0-2 Nucleated Red Blood Cells % 0.1 N Comp Metabolic Panel 02/23/2017 [facility] Sodium 139 mmol/L N 133-145 [phone] Potassium 4.6 mmol/L N 3.5-5.0 Chloride 105 mmol/L N 101-111 Co2 Carbon Dioxide 30 mmol/L N 22-32 Anion Gap 4 mmol/L N 2-11 Glucose 92 mg/dL N 70-100 Blood Urea Nitrogen 14 mg/dL N 6-24 Creatinine 0.71 mg/dL N 0.67-1.17 BUN/Creatinine Ratio 19.7 N 8-20 Calcium 9.2 mg/dL N 8.6-10.3 Total Protein 7.1 g/dL N 6.4-8.9 Albumin 4.1 g/dL N 3.2-5.2 Globulin 3.0 g/dL N 2-4 Albumin/Globulin Ratio 1.4 N 1-3 Total Bilirubin 0.80 mg/dL N 0.2-1.0 Alkaline Phosphatase 38 U/L N 34-104 Alt 43 U/L N 7-52 Ast 29 U/L N 13-39 Egfr Non- 111.0 N >60 Egfr 142.8 N >60 25 Lipid Profile 02/23/2017 [facility] Triglycerides 90 mg/dL N 26 (Trig/Chol/HDL) [phone] Cholesterol 64 mg/dL N 27 HDL Cholesterol 29.1 mg/dL N 28 LDL Cholesterol 17 mg/dL N 29 Laboratory test 02/23/2017 [facility] TSH (Thyroid 1.65 mcIU/mL N 0.34-5.60 finding [phone] Stim Horm) Hemoglobin A1c (Glyco HGB) 6.0 % High Less than 6.0 30 Magnesium 1.9 mg/dL N 1.9-2.7 Ferritin 46.6 ng/mL N 24-336 Iron & Iron Binding 02/23/2017 [facility] Iron 58 g /dL N 50-212 Capacity [phone] Unsaturated Iron Binding 324 g/dL N Total Iron Binding Capacity 382 g/dL N 250-450 % Iron Saturation 15 % N 15-55 Laboratory test 02/23/2017 [facility] Vitamin D 48.7 ng/mL N 30-50 finding [phone] Total 25(Oh) Vitamin B12 199 pg/mL N 180-914 31 Urine Microalbumin 02/23/2017 [facility] Urine Creatinine 63.17 mg/dL N 32 Random [phone] Ur Microalbumin (mg/L) < 15.0 mg/L N Urine Microalbumin/Creatinine TNP ug/mg N <31 33 Laboratory test 11/24/2016 [facility] PSA Screening 5.224 High 0-4.0 34 finding [phone] [phone] CBC Auto Diff 08/15/2016 [facility] White Blood 6.4 N 3.5-10.8 [phone] Count 10^3/uL Red Blood Count 5.05 10^6/uL N 4.0-5.4 Hemoglobin 14.5 g/dL N 14.0-18.0 Hematocrit 44 % N 42-52 Mean Corpuscular Volume 88 fL N 80-94 Mean Corpuscular Hemoglobin 29 pg N 27-31 Mean Corpuscular HGB Conc 33 g/dL N 31-36 Red Cell Distribution Width 15 % N 10.5-15 Platelet Count 85 10^3/uL Low 150-450 Mean Platelet Volume 10 um3 N 7.4-10.4 Abs Neutrophils 4.3 10^3/uL N 1.5-7.7 Abs Lymphocytes 1.5 10^3/uL N 1.0-4.8 Abs Monocytes 0.5 10^3/uL N 0-0.8 Abs Eosinophils 0.1 10^3/uL N 0-0.6 Abs Basophils 0 10^3/uL N 0-0.2 Abs Nucleated RBC 0 10^3/uL N Granulocyte % 67.0 % N 38-83 Lymphocyte % 23.1 % Low 25-47 Monocyte % 8.4 % N 1-9 Eosinophil % 1.2 % N 0-6 Basophil % 0.3 % N 0-2 Nucleated Red Blood Cells % 0 N Comp Metabolic Panel 08/15/2016 [facility] Sodium 140 mmol/L N 133-145 [phone] Potassium 4.4 mmol/L N 3.5-5.0 Chloride 106 mmol/L N 101-111 Co2 Carbon Dioxide 29 mmol/L N 22-32 Anion Gap 5 mmol/L N 2-11 Glucose 85 mg/dL N 70-100 Blood Urea Nitrogen 13 mg/dL N 6-24 Creatinine 0.79 mg/dL N 0.67-1.17 BUN/Creatinine Ratio 16.5 N 8-20 Calcium 9.1 mg/dL N 8.6-10.3 Total Protein 7.0 g/dL N 6.4-8.9 Albumin 4.0 g/dL N 3.2-5.2 Globulin 3.0 g/dL N 2-4 Albumin/Globulin Ratio 1.3 N 1-3 Total Bilirubin 0.90 mg/dL N 0.2-1.0 Alkaline Phosphatase 41 U/L N 34-104 Alt 34 U/L N 7-52 Ast 25 U/L N 13-39 Egfr Non- 98.1 N >60 Egfr 126.2 N >60 35 Laboratory test 08/15/2016 [facility] TSH (Thyroid 2.86 mcIU/mL N 0.34-5.60 36 finding [phone] Stim Horm) Hemoglobin A1c (Glyco HGB) 5.8 % N Less than 6.0 37 PSA Screening 6.646 ng/mL High 0-4.000 38 Lyme Western 08/15/2016 [facility] Lyme Disease Negative N Negative Blot [phone] IgG Ab WB Lyme Disease IgG Bands Present p41, kDa N Lyme Disease IgM Ab WB Positive N Negative Lyme Disease IgM Bands Present p41, p23, kDa N Lyme Disease Interpretation See Comment N 39 Laboratory test 08/15/2016 [facility] Vitamin D 29.8 ng/mL Low 30-50 40 finding [phone] Total 25(Oh) Magnesium 2.0 mg/dL N 1.9-2.7 41 Lipid Profile 08/15/2016 [facility] Triglycerides 102 mg/dL N 42 (Trig/Chol/HDL) [phone] Cholesterol 87 mg/dL N 43 HDL Cholesterol 32.2 mg/dL N 44 LDL Cholesterol 34 mg/dL N 45 Anaplasma 08/15/2016 [facility] A. phagocytophilum <1 :64 N Phagocytophilum Abs [phone] IgG Igg,Igm A. phagocytophilum IgM <1:20 N A. phagocytophilum Interp See Comment N 46 Laboratory 02/22/2016 [facility] Hepatitis C Nonreactive N Nonreactive 47 test finding [phone] Antibody Vitamin B12 263 pg/mL N 180-914 48 Vitamin D Total 25(Oh) 51.8 ng/mL High 30-50 49 Laboratory test 02/22/2016 [facility] Magnesium 2.0 mg/dL N 1.9-2.7 50 finding [phone] Babesia Microti 02/22/2016 [facility] Babesia microti <1:64 N Abs (Igg,Igm) [phone] IgG Babesia microti IgM <1:20 N Babesia microti Interpretation See Comment N 51 CBC Auto Diff 02/22/2016 [facility] White Blood 5.5 10^3/uL N 3.5-10.8 [phone] Count Red Blood Count 4.98 10^6/uL N 4.0-5.4 Hemoglobin 13.9 g/dL Low 14.0-18.0 Hematocrit 43 % N 42-52 Mean Corpuscular Volume 87 fL N 80-94 Mean Corpuscular Hemoglobin 28 pg N 27-31 Mean Corpuscular HGB Conc 32 g/dL N 31-36 Red Cell Distribution Width 15 % N 10.5-15 Platelet Count 98 10^3/uL Low 150-450 Mean Platelet Volume 10 um3 N 7.4-10.4 Abs Neutrophils 3.6 10^3/uL N 1.5-7.7 Abs Lymphocytes 1.4 10^3/uL N 1.0-4.8 Abs Monocytes 0.4 10^3/uL N 0-0.8 Abs Eosinophils 0.1 10^3/uL N 0-0.6 Abs Basophils 0 10^3/uL N 0-0.2 Abs Nucleated RBC 0.01 10^3/uL N Granulocyte % 65.3 % N 38-83 Lymphocyte % 26.2 % N 25-47 Monocyte % 6.6 % N 1-9 Eosinophil % 1.5 % N 0-6 Basophil % 0.4 % N 0-2 Nucleated Red Blood Cells % 0.1 N Lyme Western 02/22/2016 [facility] Lyme Disease Negative N Negative Blot [phone] IgG Ab WB Lyme Disease IgG Bands Present p66, p41, kDa N Lyme Disease IgM Ab WB Positive N Negative Lyme Disease IgM Bands Present p41, p23, kDa N Lyme Disease Interpretation See Comment N 52 Comp Metabolic Panel 02/22/2016 [facility] Sodium 140 mmol/L N 133-145 [phone] Potassium 4.4 mmol/L N 3.5-5.0 Chloride 106 mmol/L N 101-111 Co2 Carbon Dioxide 27 mmol/L N 22-32 Anion Gap 7 mmol/L N 2-11 Glucose 78 mg/dL N 70-100 Blood Urea Nitrogen 12 mg/dL N 6-24 Creatinine 0.78 mg/dL N 0.67-1.17 BUN/Creatinine Ratio 15.4 N 8-20 Calcium 9.0 mg/dL N 8.6-10.3 Total Protein 7.2 g/dL N 6.4-8.9 Albumin 4.0 g/dL N 3.2-5.2 Globulin 3.2 g/dL N 2-4 Albumin/Globulin Ratio 1.3 N 1-3 Total Bilirubin 1.30 mg/dL High 0.2-1.0 Alkaline Phosphatase 41 U/L N 34-104 Alt 55 U/L High 7-52 Ast 41 U/L High 13-39 Egfr Non- 99.9 N >60 Egfr 128.5 N >60 53 Comp Metabolic 11/30/2015 [facility] Sodium 139 mmol/ L N 133-145 54 Panel [phone] Potassium 4.5 mmol/L N 3.5-5.0 Chloride 107 mmol/L N 101-111 Co2 Carbon Dioxide 25 mmol/L N 22-32 Anion Gap 7 mmol/L N 2-11 Glucose 164 mg/dL High 70-100 Blood Urea Nitrogen 11 mg/dL N 6-24 Creatinine 0.74 mg/dL N 0.67-1.17 BUN/Creatinine Ratio 14.9 N 8-20 Calcium 8.6 mg/dL N 8.6-10.3 Total Protein 6.7 g/dL N 6.4-8.9 Albumin 4.0 g/dL N 3.2-5.2 Globulin 2.7 g/dL N 2-4 Albumin/Globulin Ratio 1.5 N 1-3 Total Bilirubin 0.70 mg/dL N 0.2-1.0 Alkaline Phosphatase 43 U/L N 34-104 Alt 44 U/L N 7-52 Ast 34 U/L N 13-39 Egfr Non- 106.2 N >60 Egfr 136.5 N >60 55 CBC Auto Diff 11/30/2015 [facility] White Blood 4.2 10^3/uL N 3.5-10.8 [phone] Count Red Blood Count 4.66 10^6/uL N 4.0-5.4 Hemoglobin 13.0 g/dL Low 14.0-18.0 Hematocrit 41 % Low 42-52 Mean Corpuscular Volume 89 fL N 80-94 Mean Corpuscular Hemoglobin 28 pg N 27-31 Mean Corpuscular HGB Conc 31 g/dL N 31-36 Red Cell Distribution Width 15 % N 10.5-15 Platelet Count 93 10^3/uL Low 150-450 Mean Platelet Volume 10 um3 N 7.4-10.4 Abs Neutrophils 2.7 10^3/uL N 1.5-7.7 Abs Lymphocytes 1.1 10^3/uL N 1.0-4.8 Abs Monocytes 0.3 10^3/uL N 0-0.8 Abs Eosinophils 0.1 10^3/uL N 0-0.6 Abs Basophils 0 10^3/uL N 0-0.2 Abs Nucleated RBC 0 10^3/uL N Granulocyte % 63.0 % N 38-83 Lymphocyte % 27.0 % N 25-47 Monocyte % 8.0 % N 1-9 Eosinophil % 1.4 % N 0-6 Basophil % 0.6 % N 0-2 Nucleated Red Blood Cells % 0 N Laboratory test 11/30/2015 [facility] TSH (Thyroid 1.99 N 0.34-5.60 56 finding [phone] Stimulating ?IU/mL Horm) Hemoglobin A1c 6.3 % High Less than 6.0 57 Lyme Western 11/30/2015 [facility] Lyme Disease Negative N Negative Blot [phone] IgG Ab WB Lyme Disease IgG Bands Present p66, p41, kDa N Lyme Disease IgM Ab WB Positive N Negative Lyme Disease IgM Bands Present p41, p23, kDa N Lyme Disease Interpretation See Comment N 58 Lipid Profile 11/30/2015 [facility] Triglycerides 98 mg/dL N 59 (Trig/Chol/HDL) [phone] Cholesterol 74 mg/dL N 60 HDL Cholesterol 28.7 mg/dL N 61 LDL Cholesterol 26 mg/dL N 62 Laboratory test 11/30/2015 [facility] Erythrocyte Sed 18 mm/Hr N 0-40 63 finding [phone] Rate Rheumatoid Factor <15 IU/mL N <15 64 Cyclic Citrullinated Pept IgG <15.6 U N 65 Uric Acid 4.4 mg/dL N 4.4-7.6 66 Vitamin D Total 25(Oh) 25.4 ng/mL Low 30-50 67 Magnesium 1.7 mg/dL Low 1.9-2.7 68 Pathologist Review (SEE NOTE) N 69 Laboratory test 11/11/2014 [facility] PSA Diagnostic 4.966 High 0-4.0 70 finding [phone] [phone] Laboratory test 05/02/2014 [facility] PSA Diagnostic 4.349 High 0-4.0 71 finding [phone] [phone] Laboratory test 01/02/2014 [facility] PSA Diagnostic 4.491 High 0-4.0 72 finding [phone] Laboratory test 09/20/2013 [facility] Lactic Acid 0.7 0.5-2.2 finding [phone] mmol/L CBC Auto Diff 09/20/2013 [facility] White Blood 9.8 4.8-10.8 [phone] Count 10^3/uL Red Blood Count 5.08 10^6/uL [...] Blood Cells % 0.1 Comp Metabolic Panel 09/20/2013 [facility] Sodium 135 mmol/L 133-145 [phone] Potassium 4.0 mmol/L 3.7-5.6 Chloride 100 mmol/L [...] Egfr Non- 99.1 >60 Egfr 127.4 >60 73 Laboratory test 09/20/2013 [facility] C Reactive 78.93 mg/L High < 5.00 74 finding [phone] Protein Wound 09/20/2013 [facility] Wound/Misc (SEE NOTE) 75 Culture/Sensi [phone] Culture-Gram Stain Flu Test A, B, 09/20/2013 In House Lab Influenza A POS Or A & B,Binaxn (607)- - Antigen Influenza B Antigen NEG Laboratory test 08/26/2013 [facility] PSA Diagnostic 4.029 High 0-4.0 finding [phone] ng/mL Laboratory test 07/01/2013 [facility] PSA Diagnostic 4.274 High 0-4.0 76 finding [phone] ng/mL CBC With Manual 06/17/2013 [facility] White Blood 5.5 4.8-10.8 Diff [phone] Count 10^3/uL Red Blood Count 4.94 10^6/uL 4.0-5.4 Hemoglobin [...] 1 % 0-2 RBC Morphology Normal Normal Comp Metabolic Panel 06/17/2013 [facility] Sodium 133 mmol/L 133-145 [phone] Potassium 3.9 mmol/L 3.5-5.0 Chloride 103 mmol/L [...] Egfr Non- 98.0 >60 Egfr 126.0 >60 77 Lipid Profile 06/17/2013 [facility] Triglycerides 95 mg/dL 40-200 (Trig/Chol/HDL) [phone] Cholesterol 94 mg/dL Low Less than 200 HDL Cholesterol 26 mg/dL Low 40-60 78 Cholesterol/HDL Ratio 3.6 Average 1-4.44 LDL Cholesterol 49.0 Less Than 100 79 Laboratory test 06/17/2013 [facility] Hemoglobin A1c 5.9 % Less than 80 finding [phone] 6.0 TSH (Thyroid Stimulating Horm) 2.25 miu/mL 0.34-5.60 81 PSA Screening 5.810 ng/mL High 0-4.000 82 CBC Auto Diff 12/02/2012 [facility] White Blood 6.6 10^3/uL 4.8-10.8 [phone] Count Red Blood Count 4.58 10^6/uL 4.0-5.4 [...] Red Blood Cells % 0.1 Inr/Protime 12/02/2012 [facility] Inr 1.07 High 0.87-0.97 [phone] Laboratory test 12/02/2012 [facility] Activated 32.3 22.18-37.18 finding [phone] Partial seconds Thrombo Time Comp Metabolic 12/02/2012 [facility] Sodium 137 mmol/ L 133-145 Panel [phone] Potassium 4.3 mmol/L 3.5-5.0 Chloride 104 mmol/L [...] Egfr Non- 114.3 >60 Egfr 147.0 >60 83 Laboratory test 12/02/2012 [facility] Lactic Acid 1.4 mmol/L 0.5-1.6 finding [phone] Troponin I 0 ng/mL 0-0.06 84 C Reactive Protein 1.8 mg/dL High Less than 0.5 Clotest 08/20/2012 [facility] Clotest (SEE NOTE) 85 [phone] Urine Microalbumin 02/13/2012 [facility] Microalbumin 5.0 mg/L Random [phone] (MG/L) Urine Creatinine 113.5 mg/dL Socrates Alb/Creatinine Ratio 4.4 UG/MG Less Than 30 86 Urine DIP 02/13/2012 In House Lab Leukocytes NEG Neg (607)- - Urine Nitrites NEG Neg Urine pH 5 5-6 Total Protein, Urine NEG Neg Urine Glucose NORM Norm Urine Ketones NEG Neg Urobilinogen NORM Norm Urine Bilirubin NEG Neg Urine Blood NEG Neg Specific Halma N/A Low 1.01-1.02 Lipid Profile 02/06/2012 [facility] Triglyceride 118 mg/dL 40-200 (Trig/Chol/HDL) [phone] Cholesterol 104 mg/dL Less Than 200 87 High Density Lipoprotein 25 mg/dL Low 40-60 88 Cholesterol/HDL Ratio 4.16 AVERAGE 1-4.97 Low Density Lipoprotein 55 mg/dL Less Than 100 89 CBC Auto Diff 02/06/2012 [facility] White Blood 6.0 CUMM 4.8-10.8 [phone] Count Red Cell Count 4.85 CUMM 4.6-6.2 [...] Abs Basophils 0 0-0.2 Laboratory test 02/06/2012 [facility] Hemoglobin A1c 6.6 % High Less Than 90 finding [phone] 6.0 Comp Metabolic 02/06/2012 [facility] Sodium 140 135-145 Panel [phone] mmol/L Potassium 4.8 mmol/L 3.5-5.0 Chloride 103 mmol/L 101-111 Co2 (Carbon Dioxide) 31.0 mmol/L 22-32 Anion Gap 6.0 mmol/L 2-11 91 Glucose 110 mg/dL High 70-100 BUN 9 mg/dL 6-24 Creatinine 0.7 mg/dL 0.50-1.40 One Over Creatinine 1.42 BUN/Creatinine Ratio 12.9 8-20 Calcium 9.1 mg/dL 8.1-9.9 Total Protein 6.7 GM/DL 6.2-8.1 Albumin 4.0 GM/DL 3.2-5.2 Globulin 2.7 GM/DL 2-4 Albumin/Globulin Ratio 1.5 1-3 Bilirubin Total 1.0 mg/dL 0.4-1.5 92 Alkaline Phosphatase 46 U/L 39-117 Alt (SGPT) 46 U/L 17-63 Ast (Sgot) 34 U/L 12-42 eGFR Non- 114.6 > 60 eGFR 147.4 > 60 93 Laboratory 02/06/2012 [facility] TSH 3.54 0.34- 5.60 test finding [phone] MIU/ML Laboratory 08/08/2011 [facility] Hemoglobin 7.1 % High Less Than 94, test finding [phone] A1c 6.0 95 Comp 08/08/2011 [facility] Sodium 141 135-145 Metabolic [phone] mmol/L Panel Potassium 4.5 mmol/L 3.5-5.0 Chloride 104 mmol/L 101-111 Co2 (Carbon Dioxide) 28.0 mmol/L 22-32 Anion Gap 9.0 mmol/L 2-11 96 Glucose 99 mg/dL 70-100 BUN 11 mg/dL 6-24 Creatinine 0.8 mg/dL 0.50-1.40 One Over Creatinine 1.25 BUN/Creatinine Ratio 13.8 8-20 Calcium 8.8 mg/dL 8.1-9.9 Total Protein 6.9 GM/DL 6.2-8.1 Albumin 4.1 GM/DL 3.2-5.2 Globulin 2.8 GM/DL 2-4 Albumin/Globulin Ratio 1.5 1-3 Bilirubin Total 0.9 mg/dL 0.4-1.5 97 Alkaline Phosphatase 36 U/L Low 39-117 Alt (SGPT) 50 U/L 17-63 Ast (Sgot) 39 U/L 12-42 eGFR Non- 98.3 > 60 eGFR 126.4 > 60 98 CBC Auto Diff 08/08/2011 [facility] White Blood 6.4 CUMM 4.8-10.8 [phone] Count Red Cell Count 4.76 CUMM 4.6-6.2 [...] Eosinophils 0.1 0-0.6 Abs Basophils 0 0-0.2 Basic Metabolic 05/09/2011 [facility] Sodium 140 mmol /L 135-145 Panel [phone] Potassium 4.6 mmol/L 3.5-5.0 Chloride 106 mmol/L 101-111 Co2 (Carbon Dioxide) 28.0 mmol/L 22-32 Anion Gap 6.0 mmol/L 2-11 99 Glucose 168 mg/dL High 70-100 BUN 8 mg/dL 6-24 Creatinine 0.6 mg/dL 0.50-1.40 One Over Creatinine 1.66 BUN/Creatinine Ratio 13.3 8-20 Calcium 8.7 mg/dL 8.1-9.9 eGFR Non- 137.4 > 60 eGFR 176.7 > 60 100 Liver Function 05/09/2011 [facility] Total Protein 7.2 GM/DL 6.2-8.1 Panel [phone] Albumin 4.2 GM/DL 3.2-5.2 Globulin 3.0 GM/DL 2-4 Albumin/Globulin Ratio 1.4 1-3 Bilirubin Total 1.0 mg/dL 0.4-1.5 101 Bilirubin Direct 0.2 mg/dL 0.1-0.5 Indirect Bilirubin 0.8 mg/dL 0.3-1.0 102 Alkaline Phosphatase 47 U/L 39-117 Alt (SGPT) 48 U/L 17-63 Ast (Sgot) 41 U/L 12-42 Laboratory 05/09/2011 [facility] Hemoglobin 8.3 % High Less 103 test finding [phone] A1c Than 6.0 Surgical 12/16/2010 [facility] Surgical 104 Pathology [phone] Pathology ---- <SEE NOTE> Laboratory 10/23/2010 [facility] Culture NO ORGANISMS 105, test finding [phone] Sensitivity/G SEE <SEE [address] NOTE> Culture Sensitivity NG2F 107 Surgical 08/27/2010 [facility] Surgical --- 108 Pathology [phone] Pathology <SEE NOTE> CBC With 08/24/2010 [facility] White Blood 6.1 CUMM 4.8 Electronic [phone] Count -10 Diff .8 Red Cell Count 4.82 CUMM 4.6-6.2 Hemoglobin 14.3 g/dL 14.0-18.0 Hematocrit 42 % 42-52 Mean Corpuscular Volume 87 um3 80-94 Mean Corpuscular Hemoglob 30 pg 27-31 Mean Corpuscular HGB Cone 34 g/dL 32-36 Redcell Distribution WDTH 14 % 10.5-15 Platelet Count 86 CUMM Low 150-450 109 Mean Platelet Volume 11.4 um3 High 7.4-10.4 110 Manual Differential 08/24/2010 [facility] Polysegmented 68 % 38-83 [phone] Neutrophil Lymphocyte 24 % Low 25-47 Monocyte 7 % 0-13 Eosinophil 1 % 0-6 Absolute Neutrophil Count 4.1 Anisocytosis SLIGHT Platelet Evaluation DECREASED Laboratory test 08/24/2010 [facility] Hemoglobin A1c 10.1 % High Less 111 finding [phone] Than 6.0 Comp Metabolic 08/24/2010 [facility] Sodium 132 Low 135-145 Panel [phone] mmol/L Potassium 4.1 mmol/L 3.5-5.0 Chloride 99 mmol/L Low 101-111 Co2 (Carbon Dioxide) 26.0 mmol/L 22-32 Anion Gap 7.0 mmol/L 2-11 112 Glucose 337 mg/dL High 70-100 BUN 11 mg/dL 6-24 Creatinine 0.63 mg/dL 0.50-1.40 One Over Creatinine 1.50 BUN/Creatinine Ratio 17.5 8-20 Calcium 8.7 mg/dL 8.1-9.9 Total Protein 6.8 GM/DL 6.2-8.1 Albumin 3.9 GM/DL 3.2-5.2 Globulin 2.9 GM/DL 2-4 Albumin/Globulin Ratio 1.3 1-3 Bilirubin Total 0.6 mg/dL 0.4-1.5 113 Alkaline Phosphatase 54 U/L 39-117 Alt (SGPT) 46 U/L 17-63 Ast (Sgot) 27 U/L 12-42 eGFR Non- 129.9 > 60 eGFR 167.1 > 60 114 CBC With 05/25/2010 [facility] White Blood 6.7 CUMM 4.8-10.8 Electronic Diff [phone] Count Red Cell Count 4.80 CUMM 4.6-6.2 [...] 0-0.6 Abs Basophils 0 0-0.2 Comp Metabolic 05/25/2010 [facility] Sodium 134 mmol/ L Low 135-145 Panel [phone] Potassium 4.1 mmol/L 3.5-5.0 Chloride 101 mmol/L 101-111 Co2 (Carbon Dioxide) 28.0 mmol/L 22-32 Anion Gap 5.0 mmol/L 2-11 115 BUN 10 mg/dL 6-24 Creatinine 0.60 mg/dL 0.50-1.40 One Over Creatinine 1.60 BUN/Creatinine Ratio 16.7 8-20 Calcium 8.7 mg/dL 8.1-9.9 Total Protein 7.4 GM/DL 6.2-8.1 Albumin 4.2 GM/DL 3.6-5.4 Globulin 3.2 GM/DL 2-4 Albumin/Globulin Ratio 1.3 1-3 Bilirubin Total 1.3 mg/dL 0.4-1.5 116 Alkaline Phosphatase 40 U/L 39-117 Alt (SGPT) 49 U/L 17-63 Ast (Sgot) 36 U/L 12-42 eGFR Non- 146.6 > 60 eGFR 177.3 > 60 117 Laboratory test 05/25/2010 [facility] Hemoglobin A1c 8.8 % High Less Than 118 finding [phone] 6.0 Glucose 173 mg/dL High 70-100 119 Lipid Profile 05/25/2010 [facility] Triglyceride 89 mg/dL 40-200 (Trig/Chol/HDL) [phone] Cholesterol 103 mg/dL Less Than 200 120 High Density Lipoprotein 26 mg/dL Low 40-60 121 Cholesterol/HDL Ratio 3.96 AVERAGE 1-4.97 Low Density Lipoprotein 59 mg/dL Less Than 100 122 Laboratory test 07/04/2008 [facility] Hemoglobin A1c 7.2 % High <6.0 123 finding [phone] Comp Metabolic 07/04/2008 [facility] Sodium 139 135-145 Panel [phone] mmol/L Potassium 4.1 mmol/L 3.5-5.0 Chloride 103 mmol/L 101-111 Co2 (Carbon Dioxide) 28.0 mmol/L 22-32 Anion Gap 8.0 mmol/L 2-11 124 Glucose 162 mg/dL High 70-100 125 BUN 8 mg/dL 6-24 Creatinine 0.60 mg/dL 0.50-1.40 One Over Creatinine 1.60 BUN/Creatinine Ratio 13.3 8-20 Calcium 8.9 mg/dL 8.1-9.9 126 Total Protein 6.3 GM/DL 6.2-8.1 Albumin 3.6 GM/DL 3.6-5.4 Globulin 2.7 GM/DL 2-4 Albumin/Globulin Ratio 1.3 1-3 Bilirubin Total 1.0 mg/dL 0.4-1.5 Alkaline Phosphatase 41 U/L 39-117 Alt (SGPT) 50 U/L 17-63 Ast (Sgot) 30 U/L 12-42 Lipid Profile 07/04/2008 [facility] Triglyceride 101 mg/dL 40-200 (Trig/Chol/HDL) [phone] Cholesterol 105 mg/dL Less Than 200 127 High Density Lipoprotein 25 mg/dL Low 40-60 128 Cholesterol/HDL Ratio 4.20 AVERAGE 1-4.97 Low Density Lipoprotein 60 mg/dL Less Than 100 129 Laboratory test 07/04/2008 [facility] PSA Screening 2.01 NG/ML 0-4 130 finding [phone] CBC With Manual 07/04/2008 [facility] White Blood 7.1 CUMM 4.8-10.8 Diff [phone] Count Red Cell Count 4.79 CUMM 4.6-6.2 [...] Absolute Neutrophil Count 3.7 RBC Morphology NORMAL Laboratory test 08/17/2007 [facility] PSA Screening 2.38 NG/ML 0-4 131 finding [phone] Lipid Profile 08/17/2007 [facility] Cholesterol/H 5.05 High 1-4.97 (Trig/Chol/HDL) [phone] DL Ratio AVERAGE Cholesterol 111 mg/dL Less Than 200 132 Triglyceride 138 mg/dL 40-200 High Density Lipoprotein 22 mg/dL Low 40-60 133 Low Density Lipoprotein 61 mg/dL Less Than 100 134 Laboratory test 08/17/2007 [facility] Hemoglobin A1c 7.5 % High <6.0 135 finding [phone] Comp Metabolic 08/17/2007 [facility] One Over 1.25 Panel [phone] Creatinine Anion Gap 6.0 mmol/L 2-11 136 Albumin/Globulin Ratio 1.4 1-3 Albumin 4.2 GM/DL [...] Ratio 8.8 8-20 Creatinine 0.8 mg/dL 0.5-1.4 Urine DIP 09/13/2006 In House Lab Leukocytes trace Neg (607)- - Urine Nitrites neg Neg Urine pH 5 5-6 Total Protein, Urine neg Neg Urine Glucose norm Norm Urine Ketones neg Neg Urobilinogen norm Norm Urine Bilirubin neg Neg Urine Blood neg Neg Specific Halma n/a Low 1.01-1.02 Laboratory test 09/06/2006 [facility] Hemoglobin A1c 8.8 % High <6.0 137 finding [phone] Comp Metabolic 09/06/2006 [facility] One Over 1.42 Panel [phone] Creatinine Anion Gap 5.0 mmol/L 2-11 138 Albumin/Globulin Ratio 1.4 1-3 Albumin 3.9 GM/DL [...] Creatinine 0.7 mg/dL 0.5-1.4 Lipid Profile 09/06/2006 [facility] Cholesterol/HDL 4.14 1-4.97 (Trig/Chol/HDL) [phone] Ratio AVERAGE Cholesterol 87 mg/dL Low Less Than 200 139 Triglyceride 114 mg/dL 40-200 High Density Lipoprotein 21 mg/dL Low 40-60 140 Low Density Lipoprotein 43 mg/dL Less Than 100 141 Laboratory 09/06/2006 [facility] PSA Screening 1.94 0.01-4.0 142 test finding [phone] NG/ML Laboratory 12/09/2005 [facility] Hemoglobin A1c 6.8 % High <6.0 143 test finding [phone] Lipid Profile 06/03/2005 [facility] Cholesterol 89 mg /dL Low Less Than 144, (Trig/Chol/HD [phone] 200 145 L) Triglyceride 206 mg/dL High 40-200 High Density Lipoprotein 19 mg/dL Low 40-60 146 Low Density Lipoprotein 29 mg/dL Less Than 100 147 Cholesterol/HDL Ratio 4.68 AVERAGE 1-4.97 Comp Metabolic 06/03/2005 [facility] One Over Creatinine 1.66 Panel [phone] Anion Gap 7.0 mmol/L 2-11 148 Albumin/Globulin Ratio 1.3 1-3 Albumin 3.8 GM/DL [...] Creatinine 0.6 mg/dL 0.5-1.4 Laboratory test 06/03/2005 [facility] Hemoglobin A1c 8.2 % High <6.0 149 finding [phone] Microalbumin 06/03/2005 [facility] Socrates 33.6 High Less 150 Random Urine [phone] Alb/Creatinine UG/MG Than 30 Ratio Urine Creatinine 74.4 mg/dL Microalbumin (MG/L) 25.0 mg/L Comp Metabolic 05/31/2004 [facility] Anion Gap 12.0 mmol/L High 2-11 151 Panel [phone] Albumin/Globulin Ratio 1.3 1-3 Albumin 4.1 GM/DL [...] BUN/Creatinine Ratio 8.6 8-20 Laboratory test 05/31/2004 [facility] Hemoglobin A1c 8.3 % High <6.0 152 finding [phone] CBC With 05/31/2004 [facility] White Blood 6.0 CUMM 4.8-10.8 Electronic Diff [phone] Count Hematocrit 43 % 42-52 Hemoglobin 14.6 g/dL 14.0-18.0 Mean Corpuscular HGB Cone 34 g/dL 32-36 Mean Corpuscular Hemoglob 30 pg 27-31 Mean Corpuscular Volume 88 um3 80-94 Mean Platelet Volume 10.5 um3 High 7.4-10.4 Platelet Count 170 CUMM 150-450 Red Cell Count 4.89 CUMM 4.6-6.2 Redcell Distribution WDTH 15 % 10.5-15 CBC With Manual 05/31/2004 [facility] White Blood 6.0 CUMM 4.8-10.8 Diff [phone] Count Atypical Lymph 2 % 0-6 Anisocytosis [...] finding (607)- - Moniter Comp Metabolic 08/25/2003 [facility] Anion Gap 7.0 mmol/L 2-11 153 Panel [phone] BUN 7 mg/dL 6-24 Calcium 9.1 mg/dL [...] Total 1.2 mg/dL 0.4-1.5 Liver Function 08/25/2003 [facility] Bilirubin Direct 0.2 mg/dL 0.1-0.5 Panel [phone] Indirect Bilirubin 1.0 mg/dL High 0.1-0.75 Laboratory test 08/25/2003 [facility] Hemoglobin A1c 7.6 % High <6.0 154 finding [phone] Laboratory test 07/11/2003 [facility] Hemoglobin A1c 7.6 finding (607)- - Laboratory test 05/07/2003 [facility] PSA 2.2 0 - 4 155 finding [phone]/ml Lipid Profile 05/07/2003 [facility] Triglycerides 137 23.0 - [phone] mg/dL 253.0 Cholesterol, Total 99 mg/dL Low 120.0 - 200.0 156 HDL Cholesterol 27 mg/dL Low 40.0 - 60.0 LDL Cholesterol, Calc. 45 mg/dL 157 LDL/HDL Cholesterol 1.7 158 Chol/HDL Cholesterol 3.7 159 Comprehensive 05/07/2003 [facility] Glucose 204 mg/dL High 61.0 - Metabolic [phone] 110.0 BUN 14 mg/dL 5.0 - 21.0 [...] 0.90 mg/dL 0.2 - 1.3 Laboratory test 05/07/2003 [facility] Hemoglobin A1c 7.8 % AB 160 finding [phone] Laboratory test 04/18/2002 [facility] Dimer NEGATIVE finding (603)- - Laboratory test 04/16/2002 In House Lab Oximetry - Single 97% finding (607)- - Study Glucose By Moniter 202 High 78-110 Hemoglobin 13.4 1 SEE RESULT BELOW Name: AMNA WHITNEY : [address]: Cornell Bentley MD Acct: [id number] Unit: [id number] AGE: 67 Location: ED Re05/16/18 SEX: M Status: DEP ER SPEC: [id number] JUSTICE: 05/16/[address]: Kamille BRIDGES REQ: [id number] RECD: 05/16/18 STATUS: COLE TUTTLE DR: Haroon Pandey HOME CARE PROVIDER _ SOURCE: URINE SPDESC: ORDERED: Urine Culture Procedure Result Reported Site Urine Culture Final 05/17/18- 0851 ML No Growth (<1,000 CFU/mL) * ML - Main Lab . END OF REPORT DEPARTMENT OF PATHOLOGY, [address] [place] [address] Vitor Barragan M.D. Director [facility] # [id number] 2 [facility] Severe Sepsis and Septic Shock Management Bundle Measure requires all lactic acids initially measuring >2.0 mmol/L be repeated. 3 Because ethnic data is not always readily [...] 15-29 5 Kidney failure <15 (or dialysis) 4 [facility] Severe Sepsis and Septic Shock Management Bundle Measure requires all lactic acids initially measuring >2.0 mmol/L be repeated. 5 Because ethnic data is not always [...] 5 Kidney failure <15 (or dialysis) 6 SEE RESULT BELOW Name: AMNA WHITNEY: [address]: Cruz Linda MD Acct: [id number] Unit: [id number] AGE: 67 Location: ED Re05/13/18 SEX: M Status: DEP ER SPEC: [id number] JUSTICE: 05/13/18 [facility] DR: Smiley BRIDGES REQ: [id number] RECD: 05/13/18 STATUS: COLE TUTTLE DR: Haroon Pandey HOME CARE PROVIDER Cruz Linda MD _ SOURCE: BLOOD,VENO SPDESC: ORDERED: Blood Cult Procedure Result Reported Site Aerobic Culture Bottle Final 05/18/18- 1445 ML No Growth Day 5 Anaerobic Culture Bottle Final 05/18/18- 1445 ML No Growth Day 5 * - [facility] . END OF REPORT DEPARTMENT OF PATHOLOGY, [address] [place] [address] Vitor Barragan M.D. Director [facility] # [id number] 7 SEE RESULT BELOW Name: AMNA WHITNEY : [address]: Cruz Linda MD Acct: [id number] Unit: [id number] AGE: 67 Location: ED Re05/13/18 SEX: M Status: DEP ER SPEC: [id number] JUSTICE: 05/13/18 [facility] DR: Smiley BRIDGES REQ: [id number] RECD: 05/13/18 STATUS: COLE TUTTLE DR: Haroon Linda MD _ SOURCE: URINE SPDESC: ORDERED: Urine Culture Procedure Result Reported Site Urine Culture Final 05/15/18- 821 ML Organism 1 ESCHERICHIA COLI [place] Count >100,000 (Many) CFU/ML 1. ESCHERICHIA COLI [facility].I.C. RX --------- ------ Ampicillin >=32 R Cefazolin >=64 R Cefepime <=1 S Ceftriaxone <=1 S Ciprofloxacin <=0.25 S Gentamicin <=1 S Levofloxacin <=0.12 S Meropenem <=0.25 S Nitrofurantoin <=16 S Tetracycline <=1 S Pipercillin/Tazobactam 8 S Trimethoprim/Sulfamethoxazole <=20 S Amoxicillin/Clavulanic Acid 16 I Aztreonam <=1 S Contact the Microbiology Department for any additional antibiotic reporting. * ML - Main Lab . END OF REPORT DEPARTMENT OF PATHOLOGY, [address] [place] [address] Vitor Barragan M.D. Director [facility] # [id number] 8 Serum levels of PSA measured using the [employer] DXI Hybritech immunoassay should not be interpreted as absolute evidence of the presence or absence of disease. The PSA value should be used in conjunction with other pertinent clinical diagnostic procedures. The values obtained with different assay methods or kits cannot be used interchangeably. 9 [id number] 11 Because ethnic data is not always readily [...] 15-29 5 Kidney failure <15 (or dialysis) 12 Desirable: <150 Borderline High: 150-199 High: 200-499 Very High: >500 13 Desirable: <200 Borderline High: 200-239 High: >239 14 Low: <40 Desirable: 40-60 High: >60 15 Desirable: <100 Near Optimal: 100-129 Borderline High: 130-159 High: 160-189 Very High: >189 16 FASTING [id number] 17 Therapeutic target for the treatment of diabetes mellitus patients is <7% HBA1C, and in selective patients <6.0%. Please refer to [employer] diabetic care guidelines for further information. 18 Serum levels of PSA measured using the [employer] DXI Hybritech immunoassay should not be interpreted as absolute evidence of the presence or absence of disease. The PSA value should be used in conjunction with other pertinent clinical diagnostic procedures. The values obtained with different assay methods or kits cannot be used interchangeably. 19 SEE RESULT BELOW Name: AMNA WHITNEY DOB: [address]: Haroon Pandey NP Acct: [id number] Unit: [id number] AGE: 67 Location: [facility] Re01/09/18 SEX: M Status: REG REF SPEC: [id number] JUSTICE: 01/09/18-[address]: Haroon Pandey NP REQ: [id number] RECD: 01/09/18 STATUS: COMP _ SOURCE: LEG, RIGHT SPDESC: ORDERED: Culture Stain COMMENTS: [id number] Specimen Description right brennan Procedure Result Reported Site Wound/Misc Gram Stain Final 01/10/18- 0731 ML 1+ Neutrophils 1+ Epithelial Cells No Organisms Seen Wound/Misc Culture Final 01/11/18- 1435 ML Organism 1 NORMAL MELISSA Quantity 2+ * - [facility] . END OF REPORT DEPARTMENT OF PATHOLOGY, [address] [place] [address] Vitor Barragan M.D. Director [facility] # [id number] 20 [id number] 21 SEE RESULT BELOW Name: AMNA WHITNEY : [address]: Antonio Ybarra MD Acct: [id number] Unit: [id number] AGE: 67 Location: [facility] Re12/19/17 SEX: M Status: REG REF SPEC: [id number] JUSTICE: 12/19/17- SUBM DR: Antonio Ybarra MD REQ: [id number] RECD: 12/19/17-1257 STATUS: RACHELLE TUTTLE DR: Haroon Pandey HOME CARE PROVIDER _ ORDERED: S PATH PROST BX/4 COMMENTS: [id number] FINAL DIAGNOSIS 1. Prostate, left apex, core [...] received in formalin labeled, Left Prostate Lobe [place], and consists of three fragmented elizabeth-pink soft tissue cores ranging from 0.1 x 0.1 cm to 0.7 x 0.1 cm which are submitted entirely in one cassette. CONTINUED ON NEXT PAGE DEPARTMENT OF PATHOLOGY, [address] [place] [address] Vitor Barragan M.D. Director [facility] # [id number] RUN DATE: 12/20/17 [facility] LIVE PAGE 2 Patient: AMNA WHITNEY [id number] (Continued) GROSS DESCRIPTION (Continued) GROSS DESCRIPTION (Continued) 2. The specimen is received in formalin labeled, Left Prostate Lobe Base, and consists of three fragmented elizabeth-pink soft tissue cores ranging from 0.2 x 0.1 cm to 1.2 x 0.1 cm which are submitted entirely in one cassette. 3. The specimen is received in formalin labeled, Right Prostate Lobe [place], and consists of three elizabeth-pink soft tissue [...] 1348 END OF REPORT DEPARTMENT OF PATHOLOGY, [address] [place] [address] Vitor Barragan M.D. Director [facility] # [id number] 22 Serum levels of PSA measured using the [employer] DXI Hybritech immunoassay should not be interpreted as absolute evidence of the presence or absence of disease. The PSA value should be used in conjunction with other pertinent clinical diagnostic procedures. The values obtained with different assay methods or kits cannot be used interchangeably. 23 Serum levels of PSA measured using the [employer] DXI Hybritech immunoassay should not be interpreted as absolute evidence of the presence or absence of disease. The PSA value should be used in conjunction with other pertinent clinical diagnostic procedures. The values obtained with different assay methods or kits cannot be used interchangeably. 24 Consistent with previous results on 08/15/16. 25 Because ethnic data is not always readily [...] 15-29 5 Kidney failure <15 (or dialysis) 26 Desirable <150 Borderline high 150-199 High 200-499 Very High >500 27 Desirable <200 Borderline high 200-239 High >239 28 Low <40 Desirable: 40-60 High: >60 29 Desirable: <100 mg/dL Near Optimal: 100-129 mg/dL Borderline High: 130-159 mg/dL High: 160-189 mg/dL Very High: >189 mg/dL 30 Therapeutic target for the treatment of diabetes Mellitus patients is <7% HBA1C, and in selective patients <6.0%.Please refer to [employer] Diabetic care guidelines for further information. 31 Normal Range 180 to 914 Indeterminate Range 145 to 180 Deficient Range <145 32 [id number] 33 Unable to calculate due to low microalbumin 34 Serum levels of PSA measured using the [employer] DXI Hybritech immunoassay should not be interpreted as absolute evidence of the presence or absence of disease. The PSA value should be used in conjunction with other pertinent clinical diagnostic procedures. The values obtained with different assay methods or kits cannot be used interchangeably. 35 Because ethnic data is not always readily [...] 15-29 5 Kidney failure <15 (or dialysis) 36 [id number] 37 Therapeutic target for the treatment of diabetes Mellitus patients is <7% HBA1C, and in selective patients <6.0%.Please refer to [employer] Diabetic care guidelines for further information. 38 Serum levels of PSA measured using the [employer] DXI Hybritech immunoassay should not be interpreted as absolute evidence of the presence or absence of disease. The PSA value should be used in conjunction with other pertinent clinical diagnostic procedures. The values obtained with different assay methods or kits cannot be used interchangeably. 39 Consistent with early infection with Borrelia burgdorferi. [...] screening test (e.g., EIA). Test Performed by: [place] [address] Audio/Visual Manager: Carlos Mcintosh II, M.D., Ph.D. 40 [id number] 42 Desirable <150 Borderline high 150-199 High 200-499 Very High >500 43 Desirable <200 Borderline high 200-239 High >239 44 Low <40 Desirable: 40-60 High: >60 45 Desirable: <100 mg/dL Near Optimal: 100-129 mg/dL Borderline High: 130-159 mg/dL High: 160-189 mg/dL Very High: >189 mg/dL 46 ANTIBODY NOT DETECTED REFERENCE RANGE IgG <1:64 IgM <1:20 Anaplasma phagocytophilum is the tick-borne agent causing Human Granulocytic Ehrlichiosis (HGE). HGE is distinct and separate from Human Monocytic Ehrlichiosis (HME), caused by Ehrlichia chaffeensis. Serologic crossreactivity between A. phagocytophilum and E. chaffeensis is minimal (5-15%). This test was developed and its analytical performance characteristics have been determined by [employer]. It has not been cleared or approved by the U.S. Food and Drug Administration. The FDA has determined that such clearance or approval is not necessary. This assay has been validated pursuant to the CLIA regulations and is used for clinical purposes. Test Performed by: [employer]. [address] [place] [address] 47 [facility] [id number] 48 Normal Range 180 to 914 Indeterminate Range 145 to 180 Deficient Range <145 49 [facility] [address] 50 [facility] [address] 51 ANTIBODY NOT DETECTED REFERENCE RANGES: IgG <1:64 [...] analytical performance characteristics have been determined by [employer]. It has not been cleared or approved by the U.S. Food and Drug Administration. The FDA has determined that such clearance or approval is not necessary. This assay has been validated pursuant to the CLIA regulations and is used for clinical purposes. Test Performed by: [employer] [address] [place] [address] 52 Consistent with early infection with Borrelia burgdorferi. [...] screening test (e.g., EIA). Test Performed by: [address] [address] Audio/Visual Manager: Carlos Mcintosh II, M.D., Ph.D. 53 Because ethnic data is not always readily [...] 15-29 5 Kidney failure <15 (or dialysis) 54 [facility]274 55 Because ethnic data is not always readily [...] 15-29 5 Kidney failure <15 (or dialysis) 56 [facility]274 57 Therapeutic target for the treatment of diabetes Mellitus patients is <7% HBA1C, and in selective patients <6.0%.Please refer to [employer] Diabetic care guidelines for further information. 58 Consistent with early infection with Borrelia burgdorferi. [...] screening test (e.g., EIA). Test Performed by: [place] [address] Audio/Visual Manager: Carlos Mcintosh II, M.D., Ph.D. 59 Desirable <150 Borderline high 150-199 High 200-499 Very High >500 60 Desirable <200 Borderline high 200-239 High >239 61 Low <40 Desirable: 40-60 High: >60 62 Desirable: <100 mg/dL Near Optimal: 100-129 mg/dL Borderline High: 130-159 mg/dL High: 160-189 mg/dL Very High: >189 mg/dL 63 [place] [address] 64 Test Performed by: [place] [address] Audio/Visual Manager: Carlos Mcintosh II, M.D., Ph.D. 65 REFERENCE VALUE <20.0 (Negative) Test Performed by: [place] [address] Audio/Visual Manager: Carlos Mcintosh II, M.D., Ph.D. 66 [facility]274 67 [place] [address] 68 [place] [address] 69 Normocytic anemia. Thrombocytopenia with no evidence of platelet clumping or satellitosis. Reviewed by Kamille Andres MD 70 Serum levels of PSA measured using the [employer] DXI Hybritech immunoassay should not be interpreted as absolute evidence of the presence or absence of disease. The PSA value should be used in conjunction with other pertinent clinical diagnostic procedures. The values obtained with different assay methods or kits cannot be used interchangeably. 71 Serum levels of PSA measured using the [employer] DXI Hybritech immunoassay should not be interpreted as absolute evidence of the presence or absence of disease. The PSA value should be used in conjunction with other pertinent clinical diagnostic procedures. The values obtained with different assay methods or kits cannot be used interchangeably. 72 Serum levels of PSA measured using the [employer] DXI Hybritech immunoassay should not be interpreted as absolute evidence of the presence or absence of disease. The PSA value should be used in conjunction with other pertinent clinical diagnostic procedures. The values obtained with different assay methods or kits cannot be used interchangeably. 73 Because ethnic data is not always readily [...] 15-29 5 Kidney failure <15 (or dialysis) 74 Acute inflammation: >10.00 75 RUN DATE: 09/26/13 [facility] LIVE PAGE 1 RUN TIME: [address] [place] [address] Specimen Inquiry Name: AMNA WHITNEY SR : [address]: Leonie Bueno MD Acct: [id number] Unit: [id number] AGE: 63 Location: [facility] Re09/20/13 SEX: M Status: REG REF SPEC: [id number] JUSTICE: 09/20/13-1717 [facility] DR: Leonie Bueno MD REQ: [id number] RECD: 09/23/13-1227 STATUS: COMP _ SOURCE: HAND,RIGHT SPDESC: ORDERED: Culture Stain COMMENTS: Verbal to KHOI DURAND/PHUONG by [id number] at 1205 on 09/24/13. Results read back accurately. Submitted to [facility] via [employer] system by [id number] at 1235 on 09/24/13. QUERIES: [employer] Number [id number] Procedure Result Verified Site Wound/Misc Gram Stain [...] at Main Lab DEPARTMENT OF PATHOLOGY, [facility] [employer] [place] [address] Vitor Barragan M.D. Director [facility] Permit #[id number] RUN DATE: 09/26/13 [facility] LIVE PAGE 2 RUN TIME: 842 [facility] [facility] [place], [place] [address] Specimen Inquiry Patient: AMNA WHITNEY SR [id number] (Continued) Specimen: [id number] Collected: 09/20/13-1717 Received: 09/23/13-1226 (Continued) Procedure Result Verified Site Wound/Misc Culture Final (continued) 09/26/13842 1. STREP PYOGENES (GRP A) (continued) M.I.C. RX --------- ------ Tetracycline <=0.50 S Vancomycin 0.5 S END OF REPORT * ML=Testing performed at Main Lab DEPARTMENT OF PATHOLOGY, [address] [place] [address] Vitor Barragan M.D. Director [facility] Permit #[id number] 76 Serum levels of PSA measured using the [employer] DXI Hybritech immunoassay should not be interpreted as absolute evidence of the presence or absence of disease. The PSA value should be used in conjunction with other pertinent clinical diagnostic procedures. The values obtained with different assay methods or kits cannot be used interchangeably. 77 Because ethnic data is not always readily [...] 15-29 5 Kidney failure <15 (or dialysis) 78 HDL Interpretation: Undesirable: High Risk: Less than 40 mg/dL Desirable: Low Risk: Greater than 60 mg/dL 79 LDL Interpretation: Low Risk Optimal Level: LDL Less than 100 mg/dL Near or Above Optimal: LDL 100-129 mg/dL Borderline High Risk: LDL 130-159 mg/dL High Risk: LDL 160-189 mg/dL Very High Risk: LDL Greater than 189 mg/dL 80 Therapeutic target for the treatment of diabetes Mellitus patients is <7% HBA1C, and in selective patients <6.0%.Please refer to [employer] Diabetic care guidelines for further information. 81 FASTING 82 Serum levels of PSA measured using the [employer] DXI Hybritech immunoassay should not be interpreted as absolute evidence of the presence or absence of disease. The PSA value should be used in conjunction with other pertinent clinical diagnostic procedures. The values obtained with different assay methods or kits cannot be used interchangeably. 83 Because ethnic data is not always readily [...] 15-29 5 Kidney failure <15 (or dialysis) 84 Reference Range and Interpretation: TnI (ng/mL) Interpretation Less Than 0.06 ng/mL Not supportive of diagnosis of DC 0.06 - 0.50 ng/mL Indeterminate: suggest serial studies if clinically indicated. Greater than 0.5 ng/mL Consistent with diagnosis of DC 85 RUN DATE: 08/21/12 [facility] LIVE PAGE 1 RUN TIME: [address] [place] [address] Specimen Inquiry Name: AMNA WHITNEY SR : [address]: Glenn Negrete MD Acct: [id number] Unit: [id number] AGE: 62 Location: ENDO Re08/20/12 SEX: M Status: REG REF SPEC: [id number] JUSTICE: 08/20/12-1353 [facility] DR: Glenn Negrete MD REQ: [id number] RECD: 08/20/12140 STATUS: COLE TUTTLE DR: Abad Pereira MD _ SOURCE: GAS ANTRUM SPDESC: ORDERED: Clotest Procedure Result Verified Site Clotest Final 08/21/12- 0729 ML Clotest Negative END OF REPORT * ML=Testing performed at Main Lab DEPARTMENT OF PATHOLOGY, [address] [place] [address] Vitor Barragan M.D. Director [facility] Permit #[id number] MICROALBUMINURIA IN A RANDOM SAMPLE IS DEFINED : MICROALBUMIN/CREATININE RATIO OF 30-299 ug/mg. . 87 CHOLESTEROL INTERPRETATION: Desirable: Less than 200 MG/DL Borderline-High Risk: 200-239 MG/DL High-Risk: 240 MG/DL and over 88 HDL INTERPRETATION: Undesirable: High Risk: Less than 40 MG/DL Desirable: Low Risk: Greater than 60 MG/DL 89 LDL INTERPRETATION: Low Risk Optimal Level: LDL Less than 100 MG/DL Near or Above Optimal: LDL 100-129 MG/DL Borderline High Risk: LDL 130-159 MG/DL High Risk: LDL 160-189 MG/DL Very High Risk: LDL Greater than 189 MG/DL 90 THERAPEUTIC TARGET FOR THE TREATMENT OF DIABETES MELLITUS PATIENTS IS <7% HBA1C, AND IN SELECTIVE PATIENTS <6.0%. PLEASE REFER TO [employer] DIABETIC CARE GUIDELINES FOR FURTHER INFORMATION. 91 Anion gap measurement may be of limited value in the presence of any alkalosis, especially in a combined acid base disorder. . 92 A metabolite of Naproxen, O-desmethylnaproxen, has been shown to interfere with the Jendangik-Sasha method for measuring total bilirubin. Samples from patients who have taken Naproxen have shown spurious elevation in total bilirubin levels. 93 Because ethnic data is not always readily [...] 15-29 5 Kidney failure <15 (or dialysis) 94 NON FASTING 95 THERAPEUTIC TARGET FOR THE TREATMENT OF DIABETES MELLITUS PATIENTS IS <7% HBA1C, AND IN SELECTIVE PATIENTS <6.0%. PLEASE REFER TO [employer] DIABETIC CARE GUIDELINES FOR FURTHER INFORMATION. 96 Anion gap measurement may be of limited value in the presence of any alkalosis, especially in a combined acid base disorder. . 97 A metabolite of Naproxen, O-desmethylnaproxen, has been shown to interfere with the Jendrassik-[place] method for measuring total bilirubin. Samples from patients who have taken Naproxen have shown spurious elevation in total bilirubin levels. 98 Because ethnic data is not always readily [...] 15-29 5 Kidney failure <15 (or dialysis) 99 Anion gap measurement may be of limited value in the presence of any alkalosis, especially in a combined acid base disorder. . 10 Because ethnic data is not always readily available, 0 this report includes an eGFR for both [...] 15-29 5 Kidney failure <15 (or dialysis) 10 A metabolite of Naproxen, O-desmethylnaproxen, has been 1 shown to interfere with the Jendrassik-[place] method for measuring total bilirubin. Samples from patients who have taken Naproxen have shown spurious elevation in total bilirubin levels. 10 Please note updated reference range, effective 01/14/10 2 10 THERAPEUTIC TARGET FOR THE TREATMENT OF DIABETES 3 MELLITUS PATIENTS IS <7% HBA1C, AND IN SELECTIVE PATIENTS <6.0%. PLEASE REFER TO [employer] DIABETIC CARE GUIDELINES FOR FURTHER INFORMATION. 10 ---- 4 RUN DATE: 12/21/10 [facility] NMI LIVE PAGE 1 RUN TIME: 1419 Specimen Inquiry RUN USER: INTERFACE -- Name: AMNA WHITNEY Status: [facility] Re12/16/10 Age/Sex: 60/M Unit#: [id number] Location: [facility].O.B. : 50 -- Specimen: [id number] SOUT Spec Date: 12/16/[address] [facility] [address]: Amna robbins MD Spec Type: SURGICAL P Received: 12/17/10-0278 Copies to: Abad Pereira MD SPECIMEN WIDE EXCISION ATYPICAL MELANOCYTIC PROLIFERATION RIGHT NASAL TIP HISTORY PRE-OP DIAGNOSIS: Atypical melanocytic proliferation right nasal tip; sut ure negrete twelve o'clock GROSS DESCRIPTION The specimen is received in formalin labelled Amna Brownmike Rodríguez., Wide Excision Atypical Melanocytic Proliferation Right Nasal [...] immunohistochemical stains with appropriate controls for Melan-A ([place]-1) and HMB 45 were performed on blocks A through C in the evaluation of this case. Signed Electronically by: VITOR BARRAGAN MD 12/21/10 1419 -- DEPARTMENT OF PATHOLOGY, [address] [place] [address] [facility] Permit #[id number] Edna Chandler M.D. Bindery Manager Dir kath -- 10 RIGHT LEG/BRENNAN 5 10 NO ORGANISMS SEEN 6 NONE 10 FINAL: NO GROWTH DAY 2 7 10 ---- 8 RUN DATE: 09/01/10 [facility] NMI LIVE PAGE 1 RUN TIME: 1449 Specimen Inquiry RUN USER: INTERFACE -- Name: AMNA WHITNEY Status: REG REF Re08/27/10 Age/Sex: 60/M Unit#: [id number] Location: [facility] : 50 -- Specimen: [id number] [facility] Spec Date: 08/27/[address]: Amna robbins MD Spec Type: SURGICAL P Received: 08/30/10-1032 Copies to: Whit perla MD SPECIMEN INCISIONAL [...] extensive actinic changes. Immunohistochemical stains for Melan-A ([place]-1) and HMB45 were performed with appropriate controls and support the above rendered diagnosis. Signed Electronically by: VITOR BARRAGAN MD 09/01/10 1449 -- -- DEPARTMENT OF PATHOLOGY, [address] [place] [address] [facility] Permit #[id number] Vitor Barragan M.D. Director Roque Bai M.D. Bindery Manager Dir kath -- 10 NO CLUMPS SEEN ON SMEAR 9 11 Thrombocytopenia 0 11 THERAPEUTIC TARGET FOR THE TREATMENT OF DIABETES 1 MELLITUS PATIENTS IS <7% HBA1C, AND IN SELECTIVE PATIENTS <6.0%. PLEASE REFER TO [place] DIABETIC CARE GUIDELINES FOR FURTHER INFORMATION. 11 Anion gap measurement may be of limited value in the 2 presence of any alkalosis, especially in a combined acid base disorder. . 11 A metabolite of Naproxen, O-desmethylnaproxen, has been 3 shown to interfere with the Jendrassik-Sasha method for measuring total bilirubin. Samples from patients who have taken Naproxen have shown spurious elevation in total bilirubin levels. 11 Because ethnic data is not always readily available, 4 this report includes an eGFR for both [...] 15-29 5 Kidney failure <15 (or dialysis) 11 Anion gap measurement may be of limited value in the 5 presence of any alkalosis, especially in a combined acid base disorder. . 11 A metabolite of Naproxen, O-desmethylnaproxen, has been 6 shown to interfere with the Jendrassik-[place] method for measuring total bilirubin. Samples from patients who have taken Naproxen have shown spurious elevation in total bilirubin levels. 11 Because ethnic data is not always readily available, 7 this report includes an eGFR for both [...] 15-29 5 Kidney failure <15 (or dialysis) 11 THERAPEUTIC TARGET FOR THE TREATMENT OF DIABETES 8 MELLITUS PATIENTS IS <7% HBA1C, AND IN SELECTIVE PATIENTS <6.0%. PLEASE REFER TO [place] DIABETIC CARE GUIDELINES FOR FURTHER INFORMATION. 11 Note change in reference range as of 08/21/08. The 9 change was based on recommendations from the [employer]. 12 CHOLESTEROL INTERPRETATION: 0 Desirable: Less than 200 MG/DL Borderline-High Risk: 200-239 MG/DL High-Risk: 240 MG/DL and over 12 HDL INTERPRETATION: 1 Undesirable: High Risk: Less than 40 MG/DL Desirable: Low Risk: Greater than 60 MG/DL 12 LDL INTERPRETATION: 2 Low Risk Optimal Level: LDL Less than 100 MG/DL Near or Above Optimal: LDL 100-129 MG/DL Borderline High Risk: LDL 130-159 MG/DL High Risk: LDL 160-189 MG/DL Very High Risk: LDL Greater than 189 MG/DL 12 THERAPEUTIC TARGET FOR THE TREATMENT OF DIABETES 3 MELLITUS PATIENTS IS <7% HBA1C, AND IN SELECTIVE PATIENTS <6.0%. PLEASE REFER TO [employer] DIABETIC CARE GUIDELINES FOR FURTHER INFORMATION. 12 Anion gap measurement may be of limited value in the 4 presence of any alkalosis, especially in a combined acid base disorder. . 12 Note change in reference range as of 02/14/08. The 5 change was based on recommendations from the [employer]. 12 Please note change in reference range effective 07 6 . 12 CHOLESTEROL INTERPRETATION: 7 Desirable: Less than 200 MG/DL Borderline-High Risk: 200-239 MG/DL High-Risk: 240 MG/DL and over 12 HDL INTERPRETATION: 8 Undesirable: High Risk: Less than 40 MG/DL Desirable: Low Risk: Greater than 60 MG/DL 12 LDL INTERPRETATION: 9 Low Risk Optimal Level: LDL Less than 100 MG/DL Near or Above Optimal: LDL 100-129 MG/DL Borderline High Risk: LDL 130-159 MG/DL High Risk: LDL 160-189 MG/DL Very High Risk: LDL Greater than 189 MG/DL 13 * 0 SERUM LEVELS OF PSA MEASURED USING THE [employer] ACCESS HYBRITECH IMMUNOASSAY SHOULD NOT BE INTERPRETED ABSOLUTE EVIDENCE OF THE PRESENCE OR ABSENCE OF DISEASE. THE PSA VALUE SHOULD BE USED IN CONJUNCTION WITH OTHER PERTINENT CLINICAL DIAGNOSTIC PROCEDURES. 13 * 1 SERUM LEVELS OF PSA MEASURED USING THE [employer] ACCESS HYBRITECH IMMUNOASSAY SHOULD NOT BE INTERPRETED ABSOLUTE EVIDENCE OF THE PRESENCE OR ABSENCE OF DISEASE. THE PSA VALUE SHOULD BE USED IN CONJUNCTION WITH OTHER PERTINENT CLINICAL DIAGNOSTIC PROCEDURES. 13 Classification: Desirable 2 . 13 Classification: Low 3 . 13 CALCULATED LDL APPROXIMATES THE VALUE OF A DIRECT LDL 4 MEASUREMENT. Classification: Optimal Level . 13 THERAPEUTIC TARGET FOR THE TREATMENT OF DIABETES 5 MELLITUS PATIENTS IS <7% HBA1C, AND IN SELECTIVE PATIENTS <6.0%. PLEASE REFER TO [place] DIABETIC CARE GUIDELINES FOR FURTHER INFORMATION. 13 Anion gap measurement may be of limited value in the 6 presence of any alkalosis, especially in a combined acid base disorder. . 13 THERAPEUTIC TARGET FOR THE TREATMENT OF DIABETES 7 MELLITUS PATIENTS IS <7% HBA1C, AND IN SELECTIVE PATIENTS <6.0%. PLEASE REFER TO [place] DIABETIC CARE GUIDELINES FOR FURTHER INFORMATION. 13 Anion gap measurement may be of limited value in the 8 presence of any alkalosis, especially in a combined acid base disorder. . 13 Classification: Desirable 9 . 14 Classification: Low 0 . 14 1 CALCULATED LDL APPROXIMATES THE VALUE OF A DIRECT LDL MEASUREMENT. Classification: Optimal Level . 14 * 2 SERUM LEVELS OF PSA MEASURED USING THE [employer] ACCESS HYBRITECH IMMUNOASSAY SHOULD NOT BE INTERPRETED ABSOLUTE EVIDENCE OF THE PRESENCE OR ABSENCE OF DISEASE. THE PSA VALUE SHOULD BE USED IN CONJUNCTION WITH OTHER PERTINENT CLINICAL DIAGNOSTIC PROCEDURES. 14 THERAPEUTIC TARGET FOR THE TREATMENT OF DIABETES 3 MELLITUS PATIENTS IS <7% HBA1C, AND IN SELECTIVE PATIENTS <6.0%. PLEASE REFER TO [place] DIABETIC CARE GUIDELINES FOR FURTHER INFORMATION. 14 FASTING 4 14 Classification: Desirable 5 . 14 Classification: Low 6 . 14 7 CALCULATED LDL APPROXIMATES THE VALUE OF A DIRECT LDL MEASUREMENT. Classification: Optimal Level . 14 Anion gap measurement may be of limited value in the 8 presence of any alkalosis, especially in a combined acid base disorder. . 14 THERAPEUTIC TARGET FOR THE TREATMENT OF DIABETES 9 MELLITUS PATIENTS IS <7% HBA1C, AND IN SELECTIVE PATIENTS <6.0%. PLEASE REFER TO [place] DIABETIC CARE GUIDELINES FOR FURTHER INFORMATION. 15 0 MICROALBUMINURIA IN A RANDOM SAMPLE IS DEFINED : MICROALBUMIN/CREATININE RATIO OF 30-299 ug/mg. . 15 Anion gap measurement may be of limited value in the 1 presence of any alkalosis, especially in a combined acid base disorder. . 15 THERAPEUTIC TARGET FOR THE TREATMENT OF DIABETES 2 MELLITUS PATIENTS IS <7% HBA1C, AND IN SELECTIVE PATIENTS <6.0%. PLEASE REFER TO [place] DIABETIC CARE GUIDELINES FOR FURTHER INFORMATION. 15 Anion gap measurement may be of limited value in the 3 presence of any alkalosis, especially in a combined acid base disorder. . 15 THERAPEUTIC TARGET FOR THE TREATMENT OF DIABETES MELLITUS 4 PATIENTS IS <7% HBA1C. [employer] DIABETES CARE 2002;25:S33-S49. . 15 . 5 Results obtained using Marie MEIA methodology. Serum PSA results should be used only in conjunction with information available from the clinical evaluation of the patient and other diagnostic procedures. Values obtained with different assay methods or kits cannot be used interchangeably. . 15 Cholesterol Risk Levels (NIH) 6 Recommended: under 200 mg/dl Borderline : 200-239 mg/dl High Risk : Above 240 mg/dl . 15 LDL Cholesterol Risk Levels (NIH) 7 Recommended: under 130 mg/dl Borderline: 131 - 159 mg/dl High Risk: above 160 mg/dl . 15 LDL/HDL Risk Ratio Levels 8 MALE FEMALE 1/2 X Average 1.00 1.47 Average 3.55 3.22 2 X Average 6.25 5.03 3 X Average 7.99 6.14 . 15 CHOL/HDL Risk Ratio Levels 9 MALE FEMALE 1/2 X Average 3.4 3.3 Average 5.0 4.4 2 X Average 9.5 7.0 3 X Average 24.0 11.0 . 16 HGBA1C (%) GLUCOSE CONTROL 0 >8 Action Suggested 7-8 Good Control <7 Goal 6-7 Near Normal Glycem <6 Non-diabetic Level . Procedures Date Code Description Status 02/23/2017 62856 EKG, at Least 12 Leads w/Interpretation and Report Completed 2013 15713 I&D Of Abscess Completed 06/13/2013 55260 Therapeutic,Prophylactic,Or Diagnostic Inj,SC/Im Specify Completed Drug 02/13/2012 05819 EKG, at Least 12 Leads w/Interpretation and Report Completed 12/10/2009 06413 EKG, at Least 12 Leads w/Interpretation and Report Completed 07/20/2009 37155 EKG, at Least 12 Leads w/Interpretation and Report Completed 03/10/2007 76286 Holter Monitor-24 hrs,w/interpretation Completed 12/12/2005 34303 I&D Of Abscess Completed 01/12/2004 37607 Removal Of Foreign Body, Foot, Subcutaneous Completed 04/16/2002 80100 Oximetry - Single Study Completed 04/16/2002 23650 EKG, at Least 12 Leads w/Interpretation and Report Completed Encounters Type Date Location Provider Dx Diagnosis Office Visit 06/01/2018 Main Office Ubaldo Loera, N41.0 Acute prostatitis 3:15p Office Visit 04/14/2018 Main Office Abad Pereira M.D. L03.116 Cellulitis of left 11:00a lower limb Office Visit 01/29/2018 Main Office Haroon Pandey Z00.00 Encntr for general 8:45a LEAD LAYING AND GLUING MACHINE OPERATOR-C adult medical exam w/o abnormal findings Z23 Encounter for immunization Office Visit 01/19/2018 4:30p Main Office Dina L03.115 Cellulitis of Shortle, HOME CARE PROVIDER right lower limb Office Visit 01/15/2018 3:45p Main Office Dina L03.115 Cellulitis of Shortle, HOME CARE PROVIDER right lower limb Office Visit 01/12/2018 9:45a Main Office Ubaldo L03.115 Cellulitis of MD Evaristo right lower limb Office Visit 01/09/2018 9:30a Main Office Haroon Ricardo L03.115 Cellulitis of Storm, LEAD LAYING AND GLUING MACHINE OPERATOR-C right lower limb Office Visit 01/06/2018 10:15a Main Office Renzo Alford S80.921A Unsp superficial III, LEAD LAYING AND GLUING MACHINE OPERATOR-C injury of right lower leg, init encntr Office Visit 10/18/2017 3:15p Main Office Ubaldo M79.652 Pain in left thigh MD Evaristo Office Visit 08/28/2017 4:00p Main Office Haroon Ricardo G47.30 Sleep apnea, Dannie, LEAD LAYING AND GLUING MACHINE OPERATOR-C unspecified R00.2 Palpitations I10 Essential (primary) hypertension Office Visit 08/14/2017 3:30p Main Office Haroon Ricardo Storm, LEAD LAYING AND GLUING MACHINE OPERATOR-C R00.2 Palpitations I10 Essential (primary) hypertension F43.0 Acute stress reaction G47.33 Obstructive sleep apnea (adult) (pediatric) Office Visit 05/23/2017 4:00p Main Office Dina K58.0 Irritable bowel Shortle, HOME CARE PROVIDER syndrome with diarrhea Office Visit 02/23/2017 10:15a Main Office Haroon Ricardo R00.2 Palpitations Storm, LEAD LAYING AND GLUING MACHINE OPERATOR-C E83.42 Hypomagnesemia E11.9 Type 2 diabetes mellitus without complications I10 Essential (primary) hypertension R53.83 Other fatigue Z23 Encounter for immunization Office Visit 01/10/2017 3:00p Main Office Renzo Alford S91.332A Puncture wound III, LEAD LAYING AND GLUING MACHINE OPERATOR-C without foreign body, left foot, init encntr S91.331A Puncture wound without foreign body, right foot, init encntr Office Visit 12/21/2016 4:15p Main Office Ubaldo Loera, S91.332A Puncture wound MD without foreign body, left foot, init encntr F32.9 Major depressive disorder, single episode, unspecified Z23 Encounter for immunization Office Visit 08/15/2016 11:00a Main Office Haroon Pandey, M75.51 Bursitis of right LEAD LAYING AND GLUING MACHINE OPERATOR-C shoulder Office Visit 02/22/2016 9:45a Main Office Haroon Pandey, R53.83 Other fatigue LEAD LAYING AND GLUING MACHINE OPERATOR-C F32.8 Other depressive episodes E83.42 Hypomagnesemia Z23 Encounter for immunization Office Visit 01/25/2016 9:30a Main Office Haroon Pandey, F32.8 Other depressive LEAD LAYING AND GLUING MACHINE OPERATOR-C episodes L03.116 Cellulitis of left lower limb Office Visit 12/21/2015 8:45a Main Office Haroon Pandey, Z00.00 Encntr for general LEAD LAYING AND GLUING MACHINE OPERATOR-C adult medical exam w/o abnormal findings M25.512 Pain in left shoulder C43.39 Malignant melanoma of other parts of face F32.8 Other depressive episodes Z23 Encounter for immunization Office Visit 12/14/2015 10:45a Main Office Haroon Pandey, E83.42 Hypomagnesemia LEAD LAYING AND GLUING MACHINE OPERATOR-C A69.20 Lyme disease, unspecified E55.9 Vitamin D deficiency, unspecified Office Visit 11/30/2015 9:45a Main Office Ubaldo Loera, R23.9 Unspecified skin MD changes L03.90 Cellulitis, unspecified Office Visit 04/30/2015 9:45a Main Office Haroon Ricardo R23.9 Unspecified skin Storm, LEAD LAYING AND GLUING MACHINE OPERATOR-C changes Office Visit 04/28/2015 4:15p Main Office Anuradha Lua R23.9 Unspecified skin LEAD LAYING AND GLUING MACHINE OPERATOR-C changes Office Visit 09/03/2014 11:00a Main Office Anuradha Lua, 682.9 Cellulitis & Abscess LEAD LAYING AND GLUING MACHINE OPERATOR-C Unspec Site Office Visit 06/16/2014 9:00a Main Office Anuradha Lua 682.9 Cellulitis & Abscess LEAD LAYING AND GLUING MACHINE OPERATOR-C Unspec Site Office Visit 05/26/2014 4:45p Main Office Haroon Ricardo 682.9 Cellulitis & Abscess Storm, LEAD LAYING AND GLUING MACHINE OPERATOR-C Unspec Site 703.0 Ingrowing Nail V04.81 Need For Prophylactic Vaccination & Inoculation/Influenza Office Visit 12/23/2013 12:00p Main Office Anuradha Lua, 724.2 Lumbago LEAD LAYING AND GLUING MACHINE OPERATOR-C Office Visit 10/28/2013 10:30a Main Office Haroon Pandey 682.9 Cellulitis & LEAD LAYING AND GLUING MACHINE OPERATOR-C Abscess Unspec Site Office Visit 10/26/2013 10:15a Main Office Whit Hayes 682.9 Cellulitis & Blegen MChitraD. Abscess Unspec Site Office Visit 09/26/2013 4:30p Main Office Haroon Pandey 682.9 Cellulitis & LEAD LAYING AND GLUING MACHINE OPERATOR-C Abscess Unspec Site 782.3 Edema Office Visit 09/20/2013 4:15p Main Office Leonie Aragon.82 Influenza Due To Edna Bueno Identified Influenza A Virus Resp [facility] 682.9 Cellulitis & Abscess Unspec Site Office Visit 2013 9:00a Main Office Haroon Ricardo V70.0 Examination General Storm, LEAD LAYING AND GLUING MACHINE OPERATOR-C Medical Routine AT Health Care Facility 682.9 Cellulitis & Abscess Unspec Site 790.93 Elevated Prostate Specific Antigen (PSA) V04.81 Need For Prophylactic Vaccination & Inoculation/Influenza Office Visit 06/14/2013 4:45p Main Office Haroon Pandey 682.9 Cellulitis & LEAD LAYING AND GLUING MACHINE OPERATOR-C Abscess Unspec Site Office Visit 06/13/2013 10:30a Main Office Whit Hayes 682.Rajat Cellulitis & Blegen MChitraD. Abscess Unspec Site Office Visit 06/10/2013 10:45a Main Office Haroon Pandey 682.9 Cellulitis & LEAD LAYING AND GLUING MACHINE OPERATOR-C Abscess Unspec Site Office Visit 05/08/2013 4:45p Main Office Anuradha Lua 682.9 Cellulitis & LEAD LAYING AND GLUING MACHINE OPERATOR-C Abscess Unspec Site Office Visit 03/06/2013 9:45a Main Office Anuradha Lua 682.9 Cellulitis & LEAD LAYING AND GLUING MACHINE OPERATOR-C Abscess Unspec Site Office Visit 12/20/2012 11:45a Main Office Haroon Pandey, 682.9 Cellulitis & LEAD LAYING AND GLUING MACHINE OPERATOR-C Abscess Unspec Site 915.6 Injury Superficial Foreign Body Fingers W/O Infection Office Visit 12/11/2012 2:15p Main Office Haroon Ricardo 682.9 Cellulitis & Abscess Storm, LEAD LAYING AND GLUING MACHINE OPERATOR-C Unspec Site Office Visit 11/30/2012 11:00a Main Office Haroon Ricardo 682.9 Cellulitis & Abscess Storm, LEAD LAYING AND GLUING MACHINE OPERATOR-C Unspec Site Office Visit 2012 11:00a Main Office Haroon Ricardo 682.9 Cellulitis & Abscess Storm, LEAD LAYING AND GLUING MACHINE OPERATOR-C Unspec Site Office Visit 02/13/2012 9:00a Main Office Haroon Ricardo V70.0 Examination General Storm, LEAD LAYING AND GLUING MACHINE OPERATOR-C Medical Routine AT Health Care Facility 250.00 Diabetes Mellitus W/O Compl Type II Or Unspec Controlled 401.9 Hypertension Unspec 172.3 Malignant Melanoma Other & Unspec Parts Face Office Visit 08/15/2011 10:30a Main Office Haroon Ricardo 250.00 Diabetes Mellitus Storm, LEAD LAYING AND GLUING MACHINE OPERATOR-C W/O Compl Type II Or Unspec Controlled 172.3 Malignant Melanoma Other & Unspec Parts Face Office Visit 05/13/2011 10:45a Main Office Haroon Ricardo 250.00 Diabetes Mellitus Storm, LEAD LAYING AND GLUING MACHINE OPERATOR-C W/O Compl Type II Or Unspec Controlled 733.99 Bone & Cartilage Disorder Other Office Visit 05/09/2011 10:15a Main Office Leonie Gonzalez 250.02 Diabetes Mellitus Edna Bueno W/O Compl Type II Or Unspec Type Uncontrol 707.15 Ulcer Of Other Part Of Foot V04.81 Need For Prophylactic Vaccination & Inoculation/Influenza Office Visit 04/20/2011 11:30a Main Office Anuradha Lua, 883.1 Open Wound LEAD LAYING AND GLUING MACHINE OPERATOR-C Finger(S) Complicated Office Visit 01/07/2011 9:00a Main Office Haroon Pandey, 250.02 Diabetes Mellitus LEAD LAYING AND GLUING MACHINE OPERATOR-C W/O Compl Type II Or Unspec Type Uncontrol Office Visit 10/23/2010 10:30a Main Office Abad Pereira M.D. 682.6 Cellulitis & Abscess Leg Except Foot Office Visit 10/19/2010 8:45a Main Office Shawnti R. Storm, 250.00 Diabetes Mellitus LEAD LAYING AND GLUING MACHINE OPERATOR-C W/O Compl Type II Or Unspec Controlled Office Visit 10/01/2010 3:15p Main Office Haroon Pandey, 682.6 Cellulitis & LEAD LAYING AND GLUING MACHINE OPERATOR-C Abscess Leg Except Foot Office Visit 09/14/2010 9:00a Main Office Haroon Pandey, 250.00 Diabetes Mellitus LEAD LAYING AND GLUING MACHINE OPERATOR-C W/O Compl Type II Or Unspec Controlled 401.9 Hypertension Unspec Office Visit 08/31/2010 8:45a Main Office Haroon Ricardo 250.00 Diabetes Mellitus Storm, LEAD LAYING AND GLUING MACHINE OPERATOR-C W/O Compl Type II Or Unspec Controlled Office Visit 06/01/2010 8:00a Main Office Haroon Ricardo 250.00 Diabetes Mellitus Storm, LEAD LAYING AND GLUING MACHINE OPERATOR-C W/O Compl Type II Or Unspec Controlled 401.9 Hypertension Unspec 709.8 Skin Disorders Other Spec V06.1 Qduiuwvkmw-Gwffmdj-Ucpdhmiw Combined (DTaP) V04.81 Need For Prophylactic Vaccination & Inoculation/Influenza Office Visit 12/10/2009 4:00p Main Office Abad Pereira M.D. 786.50 Pain Chest Unspec 682.6 Cellulitis & Abscess Leg Except Foot Office Visit 07/20/2009 3:15p Main Office Mirna Ridley, 786.50 Pain Chest M.DChitra, R.D. Unspec 785.1 Palpitations 780.57 Unspecified Sleep Apnea 250.00 Diabetes Mellitus W/O Compl Type II Or Unspec Controlled 401.9 Hypertension Unspec Office Visit 02/21/2009 10:30a Main Office Haroon Pandey, 682.6 Cellulitis & LEAD LAYING AND GLUING MACHINE OPERATOR-C Abscess Leg Except Foot 380.22 Otitis Externa Other Acute 382.9 Otitis Media Unspec 715.90 Osteoarthrosis Unspec Genlzd Or Localzd Site Unspec Office Visit 10/24/2008 9:45a Main Office Eloy Chaves 250.00 Diabetes Mellitus M.D. W/O Compl Type II Or Unspec Controlled 401.9 Hypertension Unspec 564.1 Irritable Bowel Syndrome 448.1 Nevus Non-Neoplastic V76.51 Special Screening For Malignant Neoplasms Colon 780.57 Unspecified Sleep Apnea V70.0 Examination General Medical Routine AT Health Care Facility Office Visit 07/07/2008 3:00p Main Office Eloy Lessinger, 250.00 Diabetes Mellitus M.D. W/O Compl Type [...] Main Office Haroon Pandey, 682.6 Cellulitis & LEAD LAYING AND GLUING MACHINE OPERATOR-C Abscess Leg Except Foot Office Visit 08/20/2007 12:45p Main Office Eloy Chaves, 250.00 Diabetes Mellitus [...] Office Visit 06/29/2007 11:15a Main Office Eloy Chaves, 250.00 Diabetes Mellitus [...] Office Visit 03/04/2006 9:15a Main Office Michelle Robins 682.6 Cellulitis & [...] Office Visit 06/13/2005 4:00p Main Office Eloy Chaves, 250.00 Diabetes Mellitus [...] Office Visit 05/14/2003 2:00p Main Office Eloy Chaves 250.00 Diabetes Mellitus M.D. W/O Compl Type II Or Unspec Controlled 564.1 Irritable Bowel Syndrome 600.0 Hypertrophy Benign Of Prostate 600 BPH Hyperplasia Prostate Office Visit 04/16/2002 11:45a Main Office Whit Hayes 786.05 Shortness Of BlegenCarlosDChitra Breath 786.50 Pain Chest Unspec 782.3 Edema Office Visit 12/31/2001 9:30a Main Office Michelle Robins 380.10 Otitis Externa Ozzie Carrion Infective Unspec 382.9 Otitis Media Unspec 380.4 Impacted Cerumen Office Visit 10/12/2001 4:45p Main Office Anuradha Dillon, 729.6 Foreign Body M.DChitra Residual Soft Tissue Plan of Treatment 07/12/2018 - Haroon Pandey, LEAD LAYING AND GLUING MACHINE OPERATOR-CR20.8 Other disturbances of skin sensationComments:will check TSH, CBC, CMP...?post infectious hypothyroid vs lingering kmlpqonqgF54.0 Acute prostatitisComments:check PSA today
[2018-07-25] MEDS ORDERED: Dextrose 50% Syringe 50 ML* 25 GM/50 ML SYRINGE IV PUSH PRN (03:33)
[2018-07-25 04:01] LABS: TSH (Thyroid Stimulating Horm) 5.95 mcIU/mL (0.34-5.60)
[2018-07-25] MEDS ORDERED: Heparin VIAL(*) 5000 UNITS/ML VIAL (FIVE THOUSAND) SUBCUT SCH (06:00)
[2018-07-25] MEDS: Insulin LISPRO* 1 UNITS UNIT SUBCUT SCH ×2 (07:52→13:49)
[2018-07-25] MEDS ORDERED: Regadenoson* 0.4 MG/5 ML SYRINGE ONE (08:29)
[2018-07-25] MEDS ORDERED: Insulin GLARGINE(*) 1 UNITS UNIT SUBCUT SCH (09:00)
[2018-07-25] MEDS ORDERED: BuPROPion XL* 300 MG TAB.XL PO SCH (09:00)
[2018-07-25] MEDS ORDERED: Hyoscyamine TAB* 0.125 MG PO SCH (09:00)
[2018-07-25] MEDS ORDERED: Insulin Detemir (NF) 100 UNIT/ML 10 ML VIAL SUBCUT SCH (09:00)
[2018-07-25] MEDS ORDERED: Aspirin 81 mg CHEW TAB* 81 MG TAB.CHEW PO SCH (09:00)
--- NOTE | 2018-07-25 09:01 | HP ---
HISTORY AND PHYSICAL: DATE OF ADMISSION: 07/25/18 TIME OF EVALUATION: 0300. PRIMARY CARE PHYSICIAN: Haroon Pandey NP CHIEF COMPLAINT: Shortness of breath and chest pain. HISTORY OF PRESENT ILLNESS: This is a 68-year-old male with a past medical history of hypertension, diabetes, and obstructive sleep apnea who presented to the emergency room with a second episode of shortness of breath and chest pain. The patient states 2 days ago he went to take a nap, he put his BiPAP on. He woke up with this feeling of not getting enough oxygen, gasping, he took the mask off and immediately felt better, did not think too much of it. On this evening, he had a similar episode but it did not get better, he woke up while on the BiPAP, feeling like he could not get enough oxygen in, he felt diffuse chest heaviness and short of breath. He was panicking. He called his daughter and decided to go to the emergency room for further evaluation. He still feels he is not getting enough air in despite oxygenating at 98% on room air. He did state the nitroglycerin did help alleviate some of his chest discomfort. There is still some subtle discomfort there at this point. The patient has had some nasal congestion. He wonders if he is having issues with his BiPAP due to this and causing him to have some air hunger. He denies any medication changes. He was recently diagnosed with prostatitis and took ciprofloxacin for a month. After that, he states he was normally never cold, never wore a coat and now he states he is always cold, wearing a coat and was told this was supposed to get better after the infection. The patient denies any cough. No fevers. No nausea, no vomiting. No diaphoresis, no abdominal pain. No urinary symptoms. He did state he follows with Dr. Carlson and had a recent echocardiogram that was unremarkable. Otherwise, review of systems is negative. In the emergency room, the patient had labs, imaging, was given 324 of aspirin and sublingual nitroglycerin and referred to the hospitalist service for further evaluation. PAST MEDICAL HISTORY: 1. Diabetes, on insulin. 2. Irritable bowel syndrome. 3. Depression. 4. Arthritis. 5. BPH. 6. Hypertension. 7. Obstructive sleep apnea, on BiPAP. 8. History of thrombocytopenia. MEDICATIONS: 1. Levemir 100 units subcu b.i.d. 2. Hyoscyamine 0.375 mg p.o. t.i.d. 3. Bupropion 300 mg p.o. daily. 4. Tamsulosin 0.4 mg daily. 5. Metoprolol succinate 25 mg daily. 6. Lisinopril 5 mg at bedtime. 7. Dutasteride 0.5 mg p.o. daily. 8. Metformin 850 mg p.o. t.i.d. ALLERGIES: No known drug allergies. FAMILY HISTORY: Father in his 70s of colon cancer. Mother with CHF at the age of 84. SOCIAL HISTORY: The patient lives alone. He is independent of his ADLs. He also watches his grandson. He quit smoking in 1973. No alcohol or illicit drug use. No caffeine intake. He is retired. His healthcare proxy is his daughter, Daina. Code status is full code. REVIEW OF SYSTEMS: A 14-point review of systems as mentioned in the HPI, otherwise negative. PHYSICAL EXAMINATION GENERAL: No acute distress, resting comfortably. VITAL SIGNS: Temp 98.1, pulse rate 75, respiratory rate 19, oxygen saturation is 98% on room air, and blood pressure 125/66. HEENT: Head: Normocephalic. Pupils are equal and reactive. Anicteric. Oropharynx: Mucous membranes are moist. NECK: Supple. No lymphadenopathy. RESPIRATORY: Diminished breath sounds. No wheezes, rhonchi, or rales. CARDIAC: Regular rate and rhythm. Soft systolic murmur heard throughout. ABDOMEN: Morbidly obese, soft, nontender. EXTREMITIES: Trace pretibial edema. +1 DPs. NEUROLOGIC: Alert and oriented x3. No gross focal neurologic deficits. LABORATORY DATA: White count 4.9, hemoglobin 13.5, hematocrit 41, platelets 75 ,000. INR is 1.05. Sodium 139, potassium 4.2, chloride 104, bicarb 31, BUN 15 , creatinine 0.79, glucose 134. Troponin is 0. BNP is 33. RADIOGRAPHIC DATA: Chest x-ray wet read unremarkable. EKG shows normal sinus rhythm. No significant ST changes. ASSESSMENT: This is a 68-year-old male with a past medical history of diabetes , hypertension, obstructive sleep apnea who presented to the emergency room with acute onset of shortness of breath and chest pain. 1. Chest pain and shortness of breath. Assessment: The patient's initial workup is unremarkable. It is unclear the etiology. These symptoms started while he is on the BiPAP machine. I am wondering there is some BiPAP malfunction that is occurring, although he states the second episode, his symptoms got worse after taking the BiPAP off. The other possibility is panic attack but because of his cardiac risk factors, it is not reasonable to admit him for acute coronary syndrome rule out. Plan: We will admit him to [facility] to the CDU unit, order a nuclear stress test , continue him on a baby aspirin, and keep him n.p.o. We will check a lipid panel as well and check his hemoglobin A1c. 2. Chronic medical problems. We will resume his home medications as prescribed. We will lower his insulin dose to 50 units subcutaneous while he is n.p.o. and he had a blood glucose of 134. Also continue him on a baby aspirin for now. 3. FEN. N.p.o. 4. DVT prophylaxis: The patient scores high risk. We will place him on heparin subcu t.i.d. 5. Code Status: Full code. TIME SPENT: Greater than 40 minutes spent doing the history and physical, more than half the time spent in direct patient contact. [id number]/[facility] #: [id number] EVELIA
[2018-07-25 11:55] VITALS: BP 134/71
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
[2018-07-25] MEDS ORDERED: Tamsulosin CAP* 0.4 MG PO SCH (21:00)
[2018-07-25] MEDS ORDERED: Metoprolol Succinate XL TAB* 25 MG PO SCH (21:00)
[2018-07-25] MEDS ORDERED: Lisinopril TAB* 10 MG PO SCH (21:00)
[2018-07-25] MEDS ORDERED: Finasteride TAB* 5 MG PO SCH (21:00)
== END 2018-07-25 14:10 | disposition home or self-care (01) ==
LOC: ED 01:00 → MEDTELE 03:27
PROVIDERS: ADMIT Pediatrics; ATTEND Internal Medicine
DX: R07.9 Chest pain, unspecified (principal); R06.02 Shortness of breath; E11.9 Type 2 diabetes mellitus without complications; G47.33 Obstructive sleep apnea (adult) (pediatric); K58.9 Irritable bowel syndrome, unspecified; F32.9 Major depressive disorder, single episode, unspecified; N40.0 Benign prostatic hyperplasia without lower urinary tract symptoms; I10 Essential (primary) hypertension; D69.6 Thrombocytopenia, unspecified; F41.9 Anxiety disorder, unspecified
CPT/HCPCS: 36415; 71045; 78452; 80053; 83036; 83605; 83880; 84443; 84484; 85025; 85379; 85610; 93005; 93017; 96372; 99284; A9270-GY; A9502; G0378; J1644; J2785

== ENCOUNTER → 2018-10-08 15:15 | Emergency (ER) | payer MEDICARE ==
[~2018-10-08 15:15] MED LIST: Meclizine TAB* 12.5 MG PO ONE
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
[2018-10-08 18:12] VITALS: BP 146/79
== END | disposition home or self-care (01) ==
LOC: ED 15:15
DX: H81.10 Benign paroxysmal vertigo, unspecified ear (principal); R11.2 Nausea with vomiting, unspecified; E11.9 Type 2 diabetes mellitus without complications; I25.10 Atherosclerotic heart disease of native coronary artery without angina pectoris; I10 Essential (primary) hypertension; G47.30 Sleep apnea, unspecified; F41.9 Anxiety disorder, unspecified; Z87.891 Personal history of nicotine dependence
CPT/HCPCS: 99282; A9270-GY